=== PATIENT | female | born 1940 | race Caucasian/White ===

== ENCOUNTER → 2017-09-21 10:36 | Outpatient (POV) | payer MEDICARE, SELFPAY | PROVIDERS: Visit Provider Internal Medicine | DX: Z00.00 Encounter for general adult medical examination without abnormal findings (principal) ==

== ENCOUNTER → 2018-02-09 10:59 | Outpatient (CLI) | payer MEDICARE, SELFPAY ==
[2018-02-09 12:00] VITALS: PULSE 58
[2018-02-09 12:25] VITALS: BP 125/82; BP 134/82; PULSE 108; PULSE 68; RESP 20; O2SAT 85; O2SAT 96
[2018-02-09 12:30] VITALS: O2SAT 85
== END ==
PROVIDERS: PCP Nurse Practitioner Family; Visit Provider Internal Medicine
DX: J84.112 Idiopathic pulmonary fibrosis; J96.10 Chronic respiratory failure, unspecified whether with hypoxia or hypercapnia
CPT/HCPCS: 94060; 94618; 94640; 94726; 94729

== ENCOUNTER 2018-03-23 11:42 | Observation (INO) ==
--- NOTE | 2018-03-23 11:55 | Emergency Department Note ---
ED Disposition Clinical Impression: Pneumonia Qualifiers: Pneumonia type: due to unspecified organism Laterality: left Lung location: upper lobe of lung Qualified Code(s): J18.1 - Lobar pneumonia, unspecified organism Disposition: Admitted as Observation Condition on Discharge: [facility] - Critical Care Critical Care Time: No Attestation: On , the high probability of a clinically significant, sudden or life threatening deterioration of the following system(s) required my full and direct attention, intervention and personal management. The time I documented below is in addition to time spent performing reported procedures but includes the following listed in this critical care notation. Medical Decision Making - [place] Inquiry Pt receiving controlled substance: No Vital Signs: 03/23/18 11:44 03/23/18 11:59 03/23/18 12:30 Temperature 99.4 F Temperature Source Oral Pulse Rate 111 H Pulse Rate [Apical] 102 H 99 H Respiratory Rate 24 Blood Pressure Blood Pressure [Right Arm] 119/63 120/60 Blood Pressure Mean [Right Arm] 81 80 Blood Pressure Source Blood Pressure Source [Right Arm] Automatic Cuff Automatic Cuff Blood Pressure Position Blood Pressure Position [Right Arm] Sitting Sitting 02 Sat by Pulse Oximetry 95 97 Oxygen Delivery Method Nasal Cannula Nasal Cannula Oxygen Flow Rate (LPM) 3 3 03/23/18 14:10 03/23/18 14:48 Temperature 98.0 F Temperature Source Oral Pulse Rate 92 H Pulse Rate [Apical] 94 H Respiratory Rate 20 Blood Pressure 152/101 H Blood Pressure [Right Arm] 141/77 H Blood Pressure Mean [Right Arm] 98 Blood Pressure Source Automatic Cuff Blood Pressure Source [Right Arm] Automatic Cuff Blood Pressure Position Sitting Blood Pressure Position [Right Arm] Sitting 02 Sat by Pulse Oximetry 94 L Oxygen Delivery Method Nasal Cannula Oxygen Flow Rate (LPM) 2 - Lab Data Lab Results 03/23/18 12:00: WBC 20.2 H*, RBC 4.99, Hgb 15.0, Hct 46.8, MCV 93.9, MCH 30.1, MCHC 32.1, RDW 13.1, Plt Count 166, MPV 10.8 H, Neut % (Auto) 92.7 H, Lymph % (Auto) 3.0 L, [place] % (Auto) 3.6, Eos % (Auto) 0.5, Baso % (Auto) 0.2, Neut # (Auto) 18.7 H, Lymph # (Auto) 0.6 L, [place] # (Auto) 0.7, Eos # (Auto) 0.1, Baso # (Auto) 0.0, Total Counted 100, Neutrophils % (Manual) 93 H, Lymphocytes % (Manual) 2 L, Atypical Lymphs % 1.0, Monocytes % (Manual) 4, Platelet Estimate Normal 03/23/18 12:00: Sodium 138, Potassium 3.5, Chloride 100, Carbon Dioxide 27, Anion Gap 14.5, BUN 18, Creatinine 0.79, Estimated Creat Clear 63, Estimated GFR 70, Est GFR ( Amer) 85, Glucose 118 H, Calcium 8.9, Total Bilirubin 1.2 H , AST 13 L, ALT 17, Alkaline Phosphatase 75, Total Protein 7.2, Albumin 3.3 L, Globulin 3.9 H, Albumin/Globulin Ratio 0.8 L 03/23/18 12:00: Lactate 1.9 03/23/18 12:34: Influenza Type A Ag Negative, Influenza Type B Ag Negative Result diagrams: 03/23/18 12:00 03/23/18 12:00 Orders (Tests/Meds): ED MEDICATIONS Generic Name Dose Route Start Last Admin Trade Name Freq PRN Reason Stop Dose Admin Acetaminophen 650 mg 03/23/18 15:18 Acetaminophen 325mg Tab PO 04/22/18 15:17 Q4HP PRN As Needed for Fever or Pain Albuterol/Ipratropium 3 ml 03/23/18 20:00 03/23/18 19:54 Duoneb 3ml Neb IH 04/22/18 19:59 3 ml QIDRT DANIEL Administration Aspirin 81 mg 03/24/18 09:00 Aspirin 81mg Chewable Tablet PO 04/23/18 08:59 DAILY DANIEL Hydrochlorothiazide 25 mg 03/24/18 09:00 Hctz 25mg Tablet PO 04/23/18 08:59 DAILY DANIEL Tobramycin Sulfate 320 mg/ 108 mls @ 100 mls/hr 03/25/18 15:00 Sodium Chloride IV 04/06/18 14:59 Q48H DANIEL Azithromycin 500 mg/ Sodium 250 mls @ 250 mls/hr 03/23/18 15:18 03/23/18 1 6:54 Chloride IV 04/06/18 15:17 250 mls/hr 1300 DANIEL Administration Protocol Piperacillin Sod/Tazobactam 100 mls @ 200 mls/hr 03/23/18 17:00 03/23/18 18:57 Sod 4.5 gm/ Sodium Chloride IV 04/06/18 16:59 200 mls/hr Q6 DANIEL Administration Protocol Levothyroxine Sodium 75 mcg 03/24/18 09:00 Synthroid 75mcg (0.075mg) Tablet PO 04/23/18 08:59 DAILY DANIEL Methylprednisolone Sodium Succinate 60 mg 03/23/18 15:18 03/23/18 15:44 Solu-Medrol 125mg/2ml Vial IV 04/22/18 15:17 Not Given Q8H DANIEL Discontinued Medications Generic Name Dose Route Start Last Admin Trade Name Freq PRN Reason Stop Dose Admin Albuterol/Ipratropium 3 ml 03/23/18 11:57 03/23/18 11:58 Duoneb 3ml Neb IH 03/23/18 11:58 3 ml ONCE ONE Administration Tobramycin Sulfate 320 mg/ 108 mls @ 100 mls/hr 03/23/18 15:00 03/23/18 15:44 Sodium Chloride IV 04/06/18 14:59 100 mls/hr Q48H DANIEL Administration Methylprednisolone Sodium Succinate 125 mg 03/23/18 11:57 03/23/18 11:57 Solu-Medrol 125mg/2ml Vial IV 03/23/18 11:58 125 mg ONCE ONE Administration Miscellaneous 1 each 03/23/18 15:18 03/23/18 15:44 Tobramycin Consult Request NOTAPPLIC 03/24/18 02:34 1 each CONSULT PHARMACY DANIEL Administration Protocol ORDERS Category Date Time Status Blood Culture Stat Micro 03/23/18 12:00 Received Sputum Culture & Gram Stain Stat Micro 03/23/18 12:35 Ordered - Radiology Data #1 Image(s): Chest Image Reviewed: Yes I discussed the image results w/the radiologist Infiltrate left upper lobe and possibly left base - Physician Consults Physician Consulted: Jerel Time: 13:38 Reason -: Admission Comment/Response: Agrees to admit the patient to the hospital. We discussed the patient's clinical information, including history, exam, laboratory and radiolog y results and ED course. Per hospital procedure, I will write temporary bridge inpatient orders on the patient. Specific orders requested by the admitting physician: Pneumonia with Pseudomonas, non-ICU order set, Zosyn and tobramycin. General Adult HPI - General Chief complaint: Shortness of Breath/Dyspnea Stated complaint: soa Time Seen by Provider: 03/23/18 12:05 Mode of Arrival: Wheelchair Limitations: No Limitations Description of Symptoms (Recalled from ER Triage Doc. by RN): Pt c/o SOA. Pt wears oxygen 2L per [place] as needed at home. Pt reports dry hacking cough, denies fevers. Pt reorts has been coughing all night. - History of Present Illness HPI narrative: Onset during the night of a persistent cough and increased shortness of breath. Denies fever. Coughing up some small amounts of greenish sputum in the emergency room. Denies chest pain. Has idiopathic pulmonary fibrosis. Sees Dr. Drake. Has oxygen at home to use as needed. Has been wearing it today because of increased shortness of breath. - Related Data Home Medications Medication Instructions Recorded Confirmed Albuterol Sulfate [Albuterol HFA 1 - 2 puffs IH Q4-6H PRN 03/23/18 03/23/18 Inhaler] Aspirin 81 mg PO DAILY 03/23/18 03/23/18 Famotidine [Acid Controller] 20 mg PO BID 03/23/18 03/23/18 Fluticasone/Vilanterol [Breo 1 puff INHALATION DAILY 03/23/18 03/23/18 Ellipta 200-25 Mcg INH] Levothyroxine Sodium 75 mcg PO DAILY 03/23/18 03/23/18 [Levothyroxine 75mcg (0.075mg) Tab] Naproxen Sodium [Aleve 220mg Tab] 220 mg PO DAILY 03/23/18 03/23/18 hydroCHLOROthiazide [HCTZ 25mg 25 mg PO DAILY 03/23/18 03/23/18 tab] Allergies Allergy/AdvReac Type Severity Reaction Status Date / Time levofloxacin [From [facility]] Allergy Mild Verified 03/23/18 11:53 [facility] History I have reviewed the patient's past medical history: Yes Medical History: Denies:: Diabetes Mellitus Type 1, Diabetes Mellitus Type 2 - Social History Smoking Status: Former smoker Alcohol Intake: never - Psychiatric History Expresses thoughts of harming self/others: None Suicide Plan Description: No Plan ROS Obtained: Yes All systems reviewed & no additional complaints - Constitutional Constitutional: Denies fever(s) - Cardiovascular Cardiovascular: Denies chest pain - Respiratory Respiratory: Yes cough, Yes dyspnea Physical Exam - General General appearance: alert, in no apparent distress - Head Head exam: atraumatic, normocephalic - Eye Eye exam: Present: normal appearance, PERRL, EOMI - ENT ENT exam: Present: mucous membranes moist - Neck Neck exam: Present: normal inspection, full ROM - Chest Chest inspection: Present: normal inspection, symmetric chest wall rise - Respiratory Respiratory exam: Present: other (Crackles in the bases bilaterally consistent with pulmonary fibrosis. Minimal rhonchus and wheeze) - Cardiovascular Cardiovascular exam: Present: regular rate, normal rhythm, normal heart sounds - Abdominal Exam Abdominal exam: Present: soft. Absent: distention, tenderness - Extremities Exam Extremities exam: Present: normal inspection - Neurological Exam Neurological exam: Present: alert, oriented X3 - Psychiatric Psychiatric exam: Present: normal affect, normal mood - Skin Skin exam: Present: warm, dry
[2018-03-23 12:15] LABS: Basophils % 0.2 % (0.1-2.0); Eosinophils # 0.1 K/mm3 (0.0-0.4); Eosinophils % 0.5 % (0.1-12.0); Hematocrit 46.8 % (37.0-47.0); Lymphocytes # 0.6 K/mm3 (0.7-4.5); Mean Corpuscular HGB Conc 32.1 g/dL (31.8-35.4); Mean Corpuscular Hemoglobin 30.1 pg (27.0-31.2); Mean Corpuscular Volume 93.9 fl (81-99); Mean Platelet Volume 10.8 fl (7.4-10.4); Monocytes # 0.7 K/mm3 (0.1-1.0); Monocytes % 3.6 % (1.7-9.3); Neutrophils # 18.7 K/mm3 (1.8-7.8); Neutrophils % 92.7 % (37.0-80.0); Platelet Count 166 K/mm3 (142-424); Red Blood Count 4.99 M/mm3 (4.20-5.40); Red Cell Distribution Width 13.1 % (11.5-17.5); White Blood Count 20.2 K/mm3 (4.8-10.8)
[2018-03-23 12:28] LABS: Albumin Level 3.3 gm/dL (3.4-5.0); Albumin/Globulin Ratio 0.8 (1.1-1.8); Anion Gap 14.5 mEq/L (5-15); Bilirubin,Total 1.2 mg/dL (0.2-1.0); Calcium 8.9 mg/dL (8.5-10.1); Globulin 3.9 gm/dl (1.3-3.2); Potassium 3.5 mmoL/L (3.5-5.1); Total Protein,Serum 7.2 gm/dL (6.4-8.2)
[2018-03-23 13:00] LABS: Lymphocytes % 2 % (10-50); Monocytes % 4 % (2-9); Neutrophils % 93 % (42-76); Total Cells Counted 100
[2018-03-23 14:35] LABS: Appearance,Urine CLEAR (Clear); Bilirubin,Urine Negative (Negative); Blood, Urine TRACE-I (Negative); Color,Urine YELLOW (Yellow); Glucose,Urine (UA) Negative (Negative); Ketones,Urine Negative (Negative); Leukocyte Esterase,Urine Negative (Negative); Microscopic, Urine URINE MICROSCOPIC (MICROSCOPIC); Protein,Urine Negative (Negative); Urobilinogen,Urine 0.2 EU/dl (0.2)
[2018-03-23 14:45] LABS: Bacteria,Urine Trace /lpf; Squamous Epithelial Cell,Urine Occasional #/hpf (0-5); WBC,Urine Occasional #/hpf (0-3)
--- NOTE | 2018-03-23 14:50 | Pharmacy Consult Notes ---
- Pharmacy Consult Date: 03/23/18 Time: 14:48 Referring provider: DR. ORDAZ Reason for Consult:: TOBRAMYCIN DOSING Allergies and ADEs:: Allergies Allergy/AdvReac Type Severity Reaction Status Date / Time levofloxacin [From [facility]] Allergy Mild Verified 03/23/18 11:53 Home Medications:: Home Medications Medication Instructions Recorded Confirmed Type Albuterol Sulfate [Albuterol HFA 1 - 2 puffs IH Q4-6H PRN 03/23/18 03/23/18 History Inhaler] Aspirin 81 mg PO DAILY 03/23/18 03/23/18 History Famotidine [Acid Controller] 20 mg PO BID 03/23/18 03/23/18 History Fluticasone/Vilanterol [Breo 1 puff INHALATION DAILY 03/23/18 03/23/18 History Ellipta 200-25 Mcg INH] Levothyroxine Sodium 75 mcg PO DAILY 03/23/18 03/23/18 History [Levothyroxine 75mcg (0.075mg) Tab] Naproxen Sodium [Aleve 220mg Tab] 220 mg PO DAILY 03/23/18 03/23/18 History hydroCHLOROthiazide [HCTZ 25mg 25 mg PO DAILY 03/23/18 03/23/18 History tab] Height: 1.57 m Weight: 86.183 kg Laboratory Results:: Laboratory Results - last 24 hr 03/23/18 12:00: WBC 20.2 H*, RBC 4.99, Hgb 15.0, Hct 46.8, MCV 93.9, MCH 30.1, MCHC 32.1, RDW 13.1, Plt Count 166, MPV 10.8 H, Neut % (Auto) 92.7 H, Lymph % (Auto) 3.0 L, [place] % (Auto) 3.6, Eos % (Auto) 0.5, Baso % (Auto) 0.2, Neut # (Auto) 18.7 H, Lymph # (Auto) 0.6 L, [place] # (Auto) 0.7, Eos # (Auto) 0.1, Baso # (Auto) 0.0, Total Counted 100, Neutrophils % (Manual) 93 H, Lymphocytes % (Manual) 2 L, Atypical Lymphs % 1.0, Monocytes % (Manual) 4, Platelet Estimate Normal 03/23/18 12:00: Sodium 138, Potassium 3.5, Chloride 100, Carbon Dioxide 27, Anion Gap 14.5, BUN 18, Creatinine 0.79, Estimated Creat Clear 63, Estimated GFR 70, Est GFR ( Amer) 85, Glucose 118 H, Calcium 8.9, Total Bilirubin 1.2 H , AST 13 L, ALT 17, Alkaline Phosphatase 75, Total Protein 7.2, Albumin 3.3 L, Globulin 3.9 H, Albumin/Globulin Ratio 0.8 L 03/23/18 12:00: Lactate 1.9 03/23/18 12:34: Influenza Type A Ag Negative, Influenza Type B Ag Negative 03/23/18 14:30: Urine Color Yellow, Urine Appearance Clear, Urine pH 8.0, Ur Specific [place] 1.010, Urine Protein Negative, Urine Glucose (UA) Negative, Urine Ketones Negative, Urine Blood Trace-i, Urine Nitrate Negative, Urine Bilirubin Negative, Urine Urobilinogen 0.2, Ur Leukocyte Esterase Negative, Urine RBC 3-5, Urine WBC Occasional, Ur Squamous Epith Cells Occasional, Urine Bacteria Trace Medical History: Denies:: Diabetes Mellitus Type 1, Diabetes Mellitus Type 2 Assessment and Plan - Assessment and plan all Dx Assessment and Plan for all problems:: BASED ON PATIENT'S FACTORS, RECOMMEND STARTING WITH TOBRAMYCIN 320 MG Q48H AT THIS TIME. PHARMACY WILL FOLLOW DAILY AND ADJUST APPROPRIATE. SAHIL RAI, PHARMD
--- NOTE | 2018-03-23 16:05 | History & Physical Report ---
*Admission Date: 03/23/18 *Chief complaint: cough/shortness of breath *History of present illness: 77-year-old white female with history of idiopathic pulmonary fibrosis and some frequent exacerbations who over the past couple of years has enjoyed fairly good pulmonary status. She does require home oxygen therapy. She follows with Dr. Drake in the pulmonary clinic here at [facility]. She was feeling well yesterday and did some shopping, but yesterday evening began to have coughing, sputum production and a low-grade temperature. This morning she became very dyspneic, increasing oxygen requirements, and came to the emergency department where she was noted to be tachycardic, tachypneic, and have infiltrates on chest x-ray that are new since prior chest x-rays. She was admitted to hospital for exacerbation of pulmonary fibrosis and community-acquired pneumonia in the setting of chronic lung disease. [facility] History I have reviewed the patient's past medical history: Yes Medical History: Reports:: Chronic Obstructive Pulmonary Disease (COPD) (With pulmonary fibrosis/bronchiectasis), Lung Disease Denies:: Cancer, Diabetes Mellitus Type 1, Diabetes Mellitus Type 2, MRSA Other Medical History: Reports: Arthritis, Hypothyroidism Laterality Cases: Bilateral: Tonsillectomy Other Surgeries: Yes: Hysterectomy-Total (Perhaps with appendectomy?) Amputation: No Fractures: No - *Social History Educational Level: Completed High School Smoking Status: Former smoker Alcohol Intake: never Occupational Status: retired Housing: house Household Members: none - Psychiatric History Expresses thoughts of harming self/others: None Suicide Plan Description: No Plan *Family Hx:: Cancer, Stroke Review of Systems - Review of Systems Review of systems:: pertinent systems reviewed and negative unless documented below - Constitutional Reports lack of energy, Denies anorexia, Denies body ache(s), Denies chills - Eyes Denies blurry vision, Denies change in vision, Denies bulging eyes - ENT Denies abnormal hearing, Denies bleeding gums, Denies change in voice, Denies difficulty swallowing - *Cardiovascular Reports shortness of breath, Reports shortness of breath with activity, Reports leg swelling (Over the past 4-5 months.), Denies chest pain, Denies excessive sweating, Denies irregular heart rhythm - *Respiratory Reports change in phlegm color, Reports chest congestion, Reports cough, Reports shortness of breath, Reports excessive phlegm production, Denies coughing up blood - *Gastrointestinal Denies abdominal pain, Denies belching, Denies bloating, Denies constipation, Denies cramping - *Musculoskeletal Denies abnormal walking, Denies joint swelling, Denies limited joint movement - Integumentary/Breasts Denies acne, Denies hair loss - *Neurologic Denies abnormal walking, Denies abnormal hearing, Denies abnormal speech - Hematologic/Lymphatic Denies easy bleeding - Allergic/Immunologic Denies itchy eyes, Denies lip swelling Meds Home Medications Medication Instructions Recorded Confirmed Type Albuterol Sulfate [Albuterol HFA 1 - 2 puffs IH Q4-6H PRN 03/23/18 03/23/18 History Inhaler] Aspirin 81 mg PO DAILY 03/23/18 03/23/18 History Famotidine [Acid Controller] 20 mg PO BID 03/23/18 03/23/18 History Fluticasone/Vilanterol [Breo 1 puff INHALATION DAILY 03/23/18 03/23/18 History Ellipta 200-25 Mcg INH] Levothyroxine Sodium 75 mcg PO DAILY 03/23/18 03/23/18 History [Levothyroxine 75mcg (0.075mg) Tab] Naproxen Sodium [Aleve 220mg Tab] 220 mg PO DAILY 03/23/18 03/23/18 History hydroCHLOROthiazide [HCTZ 25mg 25 mg PO DAILY 03/23/18 03/23/18 History tab] Allergies Allergy/AdvReac Type Severity Reaction Status Date / Time levofloxacin [From [facility]] Allergy Mild Verified 03/23/18 11:53 Exam Vital signs and Labs for Last 24 Hours: Temp Pulse Resp BP Pulse Ox 98.4 F 103 H 21 139/67 95 03/23/18 15:00 03/23/18 15:00 03/23/18 15:00 03/23/18 15:00 03/23/18 15:00 Laboratory Results - last 24 hr 03/23/18 12:00: WBC 20.2 H*, RBC 4.99, Hgb 15.0, Hct 46.8, MCV 93.9, MCH 30.1, MCHC 32.1, RDW 13.1, Plt Count 166, MPV 10.8 H, Neut % (Auto) 92.7 H, Lymph % (Auto) 3.0 L, [place] % (Auto) 3.6, Eos % (Auto) 0.5, Baso % (Auto) 0.2, Neut # (Auto) 18.7 H, Lymph # (Auto) 0.6 L, [place] # (Auto) 0.7, Eos # (Auto) 0.1, Baso # (Auto) 0.0, Total Counted 100, Neutrophils % (Manual) 93 H, Lymphocytes % (Manual) 2 L, Atypical Lymphs % 1.0, Monocytes % (Manual) 4, Platelet Estimate Normal 03/23/18 12:00: Sodium 138, Potassium 3.5, Chloride 100, Carbon Dioxide 27, Anion Gap 14.5, BUN 18, Creatinine 0.79, Estimated Creat Clear 63, Estimated GFR 70, Est GFR ( Amer) 85, Glucose 118 H, Calcium 8.9, Total Bilirubin 1.2 H , AST 13 L, ALT 17, Alkaline Phosphatase 75, Total Protein 7.2, Albumin 3.3 L, Globulin 3.9 H, Albumin/Globulin Ratio 0.8 L 03/23/18 12:00: Lactate 1.9 03/23/18 12:34: Influenza Type A Ag Negative, Influenza Type B Ag Negative 03/23/18 14:30: Urine Color Yellow, Urine Appearance Clear, Urine pH 8.0, Ur Specific [place] 1.010, Urine Protein Negative, Urine Glucose (UA) Negative, Urine Ketones Negative, Urine Blood Trace-i, Urine Nitrate Negative, Urine Bilirubin Negative, Urine Urobilinogen 0.2, Ur Leukocyte Esterase Negative, Urine RBC 3-5, Urine WBC Occasional, Ur Squamous Epith Cells Occasional, Urine Bacteria Trace I & O for Last 24 hours: Intake & Output 03/21/18 03/22/18 03/23/18 03/24/18 11:59 11:59 11:59 11:59 Weight 190 lb 193 lb 1 oz Microbiology Reports for the Last 24 Hours: Microbiology 03/23/18 12:35 Sputum - Expectorated Sputum Gram Stain - Final Narrative: Patient is pleasant, oriented x3. Talkative, very knowledgeable about her medical conditions. Patient has BMI of 35, obesity limits her exam accuracy and complicates all aspects of her care. Lungs have rhonchi and crackles in both lower lung peoples, worse on the right. No wheezing. Fairly symmetric air entry. Trachea is midline. Heart rate regular without murmurs. Abdomen soft, obesity noted. Hepatospleno megaly. Patient has swelling in the anterior left parham which apparently is old, no calf swelling, no cord formation. Right side without swelling. She is able to move extremities well. Cranial nerves tach. Assessment and Plan (1) Pulmonary fibrosis Current visit: Yes Status: Acute Category: Medical Code(s): J84.10 - Pulmonary fibrosis, unspecified Continue current oxygen therapy and supportive care. (2) Bronchiectasis Current visit: Yes Status: Acute Category: Medical Code(s): J47.9 - Bronchiectasis, uncomplicated See notes below Re: Pneumonia (3) Pneumonia Current visit: Yes Status: Acute Category: Medical Code(s): J18.9 - Pneumonia, unspecified organism Agree with admission. Given history of bronchiectasis will cover for Pseudomonas. Await culture results. Leukocytosis noted. Repeat this tomorrow.
[2018-03-24 06:59] LABS: Lymphocytes # 0.5 K/mm3 (0.7-4.5); Lymphocytes % 2.5 % (10-50); Mean Corpuscular HGB Conc 31.9 g/dL (31.8-35.4); Mean Corpuscular Volume 94.3 fl (81-99); Mean Platelet Volume 9.5 fl (7.4-10.4); Monocytes # 0.3 K/mm3 (0.1-1.0); Monocytes % 1.7 % (1.7-9.3); Neutrophils # 18.9 K/mm3 (1.8-7.8); Neutrophils % 95.8 % (37.0-80.0); Platelet Count 142 K/mm3 (142-424); Red Blood Count 4.16 M/mm3 (4.20-5.40); White Blood Count 19.7 K/mm3 (4.8-10.8)
--- NOTE | 2018-03-24 07:23 | Pharmacy Consult Notes ---
[facility] Pharmacy VTE Monitoring - Patient Demographics Admission date: 03/23/18 Report Date: 03/24/18 Time: 07:23 Allergies/Adverse Reactions: Patient Allergies levofloxacin [From [facility]] Allergy (Mild, Verified 03/23/18 11:53) Height: 1.57 m Weight: 87.572 kg Patient Problems: Current Active Problems Pneumonia (Acute) Pulmonary fibrosis (Acute) Bronchiectasis (Acute) - VTE Risk Labs: VTE Related Lab Results Hgb 15.0 g/dL (12.2-16.2) 03/23/18 12:00 Hct 46.8 % (37.0-47.0) 03/23/18 12:00 Plt Count 166 K/mm3 (142-424) 03/23/18 12:00 BUN 18 mg/dL (7-18) 03/23/18 12:00 Creatinine 0.79 mg/dL (0.55-1.02) 03/23/18 12:00 Estimated Creat Clear 63 mL/min (50-200) 03/23/18 12:00 VTE Score: 4 VTE Risk Level: Low Risk - Prophylaxis VTE Prophylaxis Ordered?: Yes Types of VTE Prophylaxis: TEDS Knee High Location of Applied Device: Bilateral Lower Extremeties - VTE Diagnosis Confirmed Treatment or plan recommended: Continue Current Treatment
--- NOTE | 2018-03-24 07:24 | Progress Note ---
Internal Medicine - PN: Subj *Date: 03/24/18 *Time: 07:22 Interval history: Patient feels much better than she did yesterday. Feels much less short of breath. Much less sputum production. No chest pain. Is eating well. Exam Vital signs and Labs for Last 24 Hours: Temp Pulse Resp BP Pulse Ox 98.1 F 73 15 120/61 95 03/24/18 04:00 03/24/18 07:20 03/24/18 04:00 03/24/18 04:00 03/24/18 07:20 Laboratory Results - last 24 hr 03/23/18 12:00: WBC 20.2 H*, RBC 4.99, Hgb 15.0, Hct 46.8, MCV 93.9, MCH 30.1, MCHC 32.1, RDW 13.1, Plt Count 166, MPV 10.8 H, Neut % (Auto) 92.7 H, Lymph % (Auto) 3.0 L, [place] % (Auto) 3.6, Eos % (Auto) 0.5, Baso % (Auto) 0.2, Neut # (Auto) 18.7 H, Lymph # (Auto) 0.6 L, [place] # (Auto) 0.7, Eos # (Auto) 0.1, Baso # (Auto) 0.0, Total Counted 100, Neutrophils % (Manual) 93 H, Lymphocytes % (Manual) 2 L, Atypical Lymphs % 1.0, Monocytes % (Manual) 4, Platelet Estimate Normal 03/23/18 12:00: Sodium 138, Potassium 3.5, Chloride 100, Carbon Dioxide 27, Anion Gap 14.5, BUN 18, Creatinine 0.79, Estimated Creat Clear 63, Estimated GFR 70, Est GFR ( Amer) 85, Glucose 118 H, Calcium 8.9, Total Bilirubin 1.2 H , AST 13 L, ALT 17, Alkaline Phosphatase 75, Total Protein 7.2, Albumin 3.3 L, Globulin 3.9 H, Albumin/Globulin Ratio 0.8 L 03/23/18 12:00: Lactate 1.9 03/23/18 12:34: Influenza Type A Ag Negative, Influenza Type B Ag Negative 03/23/18 14:30: Urine Color Yellow, Urine Appearance Clear, Urine pH 8.0, Ur Specific [place] 1.010, Urine Protein Negative, Urine Glucose (UA) Negative, Urine Ketones Negative, Urine Blood Trace-i, Urine Nitrate Negative, Urine Bilirubin Negative, Urine Urobilinogen 0.2, Ur Leukocyte Esterase Negative, Urine RBC 3-5, Urine WBC Occasional, Ur Squamous Epith Cells Occasional, Urine Bacteria Trace 03/23/18 21:10: Random Tobramycin 3.8 I & O for Last 24 hours: Intake & Output 03/21/18 03/22/18 03/23/18 03/24/18 11:59 11:59 11:59 11:59 Intake Total 240 / 240 Output Total 300 / 300 Balance -60 / -60 Weight 190 lb 193 lb 1 oz Microbiology Reports for the Last 24 Hours: Microbiology 03/23/18 12:35 Sputum - Expectorated Sputum Gram Stain - Final Narrative: Patient is pleasant, talkative, alert, oriented x3. Lungs have fibrous crackles in both bases, especially the right middle lung field but air movement is better and she does not cough when she takes a deep breath. Heart rate regular. No pedal edema or pulse deficits in her feet. Neurologic exam unremarkable. No JVD, oropharynx clear. Assessment and Plan (1) Pulmonary fibrosis Current visit: Yes Status: Acute Category: Medical Code(s): J84.10 - Pulmonary fibrosis, unspecified (2) Bronchiectasis Current visit: Yes Status: Acute Category: Medical Code(s): J47.9 - Bronchiectasis, uncomplicated (3) Pneumonia Current visit: Yes Status: Acute Qualifiers: Pneumonia type: due to unspecified organism Laterality: left Lung location: upper lobe of lung Qualified Code(s): J18.1 - Lobar pneumonia, unspecified organism Category: Medical Code(s): J18.9 - Pneumonia, unspecified organism - Assessment and plan all Dx Assessment and Plan for all problems:: Continue broad-spectrum IV antibiotics given her risk for gram- negative/anaerobes/Pseudomonas issues. Fortunately her Gram stain looks promising that this is not the case. Await 1 more day of antibiotics to assess blood cultures and sputum cultures. Possibly home tomorrow on oral therapy and steroid taper.
[2018-03-24 07:35] LABS: Anion Gap 15.4 mEq/L (5-15); Calcium 8.2 mg/dL (8.5-10.1); Potassium 3.4 mmoL/L (3.5-5.1)
[2018-03-24 07:36] LABS: Hematocrit 39.4 % (37.0-47.0); Hemoglobin 12.5 g/dL (12.2-16.2)
[2018-03-24 08:57] LABS: Lymphocytes % 3 % (10-50); Monocytes % 1 % (2-9); Neutrophils % 95 % (42-76); Total Cells Counted 100
[2018-03-24 08:59] LABS: RBC Morphology Normal
--- NOTE | 2018-03-24 11:34 | Pharmacy Consult Notes ---
- Pharmacy Consult Date: 03/24/18 Time: 11:26 Referring provider: DR. ORDAZ Reason for Consult:: TOBRAMYCIN LEVELS AND DOSE CHANGE Allergies and ADEs:: Allergies Allergy/AdvReac Type Severity Reaction Status Date / Time levofloxacin [From LEVAQUIN] Allergy Mild Verified 03/23/18 11:53 Home Medications:: Home Medications Medication Instructions Recorded Confirmed Type Albuterol Sulfate [Albuterol HFA 1 - 2 puffs IH Q4-6H PRN 03/23/18 03/23/18 History Inhaler] Aspirin 81 mg PO DAILY 03/23/18 03/23/18 History Famotidine [Acid Controller] 20 mg PO BID 03/23/18 03/23/18 History Fluticasone/Vilanterol [Breo 1 puff INHALATION DAILY 03/23/18 03/23/18 History Ellipta 200-25 Mcg INH] Levothyroxine Sodium 75 mcg PO DAILY 03/23/18 03/23/18 History [Levothyroxine 75mcg (0.075mg) Tab] Naproxen Sodium [Aleve 220mg Tab] 220 mg PO DAILY 03/23/18 03/23/18 History hydroCHLOROthiazide [HCTZ 25mg 25 mg PO DAILY 03/23/18 03/23/18 History tab] Height: 1.57 m Weight: 87.572 kg Laboratory Results:: Laboratory Results - last 24 hr 03/23/18 12:00: WBC 20.2 H*, RBC 4.99, Hgb 15.0, Hct 46.8, MCV 93.9, MCH 30.1, MCHC 32.1, RDW 13.1, Plt Count 166, MPV 10.8 H, Neut % (Auto) 92.7 H, Lymph % (Auto) 3.0 L, [place] % (Auto) 3.6, Eos % (Auto) 0.5, Baso % (Auto) 0.2, Neut # (Auto) 18.7 H, Lymph # (Auto) 0.6 L, [place] # (Auto) 0.7, Eos # (Auto) 0.1, Baso # (Auto) 0.0, Total Counted 100, Neutrophils % (Manual) 93 H, Lymphocytes % (Manual) 2 L, Atypical Lymphs % 1.0, Monocytes % (Manual) 4, Platelet Estimate Normal 03/23/18 12:00: Sodium 138, Potassium 3.5, Chloride 100, Carbon Dioxide 27, Anion Gap 14.5, BUN 18, Creatinine 0.79, Estimated Creat Clear 63, Estimated GFR 70, Est GFR ( Amer) 85, Glucose 118 H, Calcium 8.9, Total Bilirubin 1.2 H , AST 13 L, ALT 17, Alkaline Phosphatase 75, Total Protein 7.2, Albumin 3.3 L, Globulin 3.9 H, Albumin/Globulin Ratio 0.8 L 03/23/18 12:00: Lactate 1.9 03/23/18 12:34: Influenza Type A Ag Negative, Influenza Type B Ag Negative 03/23/18 14:30: Urine Color Yellow, Urine Appearance Clear, Urine pH 8.0, Ur Specific [place] 1.010, Urine Protein Negative, Urine Glucose (UA) Negative, Urine Ketones Negative, Urine Blood Trace-i, Urine Nitrate Negative, Urine Bilirubin Negative, Urine Urobilinogen 0.2, Ur Leukocyte Esterase Negative, Urine RBC 3-5, Urine WBC Occasional, Ur Squamous Epith Cells Occasional, Urine Bacteria Trace 03/23/18 21:10: Random Tobramycin 3.8 03/24/18 06:40: Random Tobramycin 0.7 03/24/18 06:40: WBC 19.7 H, RBC 4.16 L, Hgb 12.5 D, Hct 39.4, MCV 94.3, MCH 30.0, MCHC 31.9, RDW 13.0, Plt Count 142, MPV 9.5, Neut % (Auto) 95.8 H, Lymph % (Auto) 2.5 L, [place] % (Auto) 1.7, Eos % (Auto) 0.0 L, Baso % (Auto) 0.0 L, Neut # (Auto) 18.9 H, Lymph # (Auto) 0.5 L, [place] # (Auto) 0.3, Eos # (Auto) 0.0, Baso # (Auto) 0.0, Total Counted 100, Neutrophils % (Manual) 95 H, Band Neutrophils % 1.0, Lymphocytes % (Manual) 3 L, Monocytes % (Manual) 1 L, Platelet Estimate Normal, RBC Morphology Normal 03/24/18 06:40: Sodium 143, Potassium 3.4 L, Chloride 106, Carbon Dioxide 25, Anion Gap 15.4 H, BUN 18, Creatinine 0.81, Estimated Creat Clear 64, Estimated GFR 68, Est GFR ( Amer) 83, Glucose 140 H, Calcium 8.2 L Medical History: Reports:: Chronic Obstructive Pulmonary Disease (COPD) (With pulmonary fibrosis/bronchiectasis), Lung Disease Denies:: Cancer, Diabetes Mellitus Type 1, Diabetes Mellitus Type 2, MRSA Assessment and Plan (1) Pulmonary fibrosis Current visit: Yes Status: Acute Category: Medical Code(s): J84.10 - Pulmonary fibrosis, unspecified (2) Bronchiectasis Current visit: Yes Status: Acute Category: Medical Code(s): J47.9 - Bronchiectasis, uncomplicated (3) Pneumonia Current visit: Yes Status: Acute Qualifiers: Pneumonia type: due to unspecified organism Laterality: left Lung location: upper lobe of lung Qualified Code(s): J18.1 - Lobar pneumonia, unspecified organism Category: Medical Code(s): J18.9 - Pneumonia, unspecified organism - Assessment and plan all Dx Assessment and Plan for all problems:: BASED ON PATIENT'S CALCULATED PEAK AND TROUGH OF 6,68 MCG/ML AND 0.09 MCG/ML RESPECTIVELY. RECOMMEND INCREASING DOSE OF TOBRAMYCIN TO 460 MG Q24H AT THIS TIME. WILL OBTAIN LEVEL OVERNIGHT TO DETERMINE CLEARANCE. PHARMACY WILL FOLLOW DAILY AND ADJUST APPROPRIATE. SAHIL RAI, PHARMD
--- NOTE | 2018-03-25 09:02 | Discharge Summary ---
General - General Admission date:: 03/23/18 Discharge date: 03/25/18 HPI HPI: 77-year-old white female with history of idiopathic pulmonary fibrosis and some frequent exacerbations who over the past couple of years has enjoyed fairly good pulmonary status. She does require home oxygen therapy. She follows with Dr. Drake in the pulmonary clinic here at [facility]. She was feeling well yesterday and did some shopping, but yesterday evening began to have coughing, sputum production and a low-grade temperature. This morning she became very dyspneic, increasing oxygen requirements, and came to the emergency department where she was noted to be tachycardic, tachypneic, and have infiltrates on chest x-ray that are new since prior chest x-rays. She was admitted to hospital for exacerbation of pulmonary fibrosis and community-acquired pneumonia in the setting of chronic lung disease. Hospital Course Hospital Course: Patient was admitted to hospital. Because of her significant pulmonary fibrosis burden and high risk of Pseudomonas she was placed on Pseudomonas coverage and did well with this. She improved very nicely vis--vis shortness of air and sputum production. Culture of sputum was nondiagnostic with normal respiratory ivet and fortunately blood cultures were negative. This morning she feels great, feels almost back to her baseline and is taking her p.o. medications well. She will be discharged home with Augmentin twice daily for anaerobic and Gram positive and decent gram-negative coverage. Steroids for a burst dose and close follow-up in my office. Objective Vital signs: Temp Pulse Resp BP Pulse Ox 97.6 F 96 H 20 157/63 H 99 03/25/18 08:00 03/25/18 08:00 03/25/18 08:00 03/25/18 08:00 03/25/18 08:00 Narrative: Patient is pleasant, alert, oriented x3. Oropharynx clear, comfortable on 2 L nasal cannula which is her baseline. Minimal crackles at baseline but good air movement, no expiratory rhonchi or wheezing. Heart rate regular without murmurs. Abdomen soft and nontender. Results Labs on day of discharge: Labs from last 24 hours 03/25/18 03/24/18 02:15 06:40 Total Counted 100 Neutrophils % (Manual) 95 H Band Neutrophils % 1.0 Lymphocytes % (Manual) 3 L Monocytes % (Manual) 1 L Platelet Estimate Normal RBC Morphology Normal Random Tobramycin 1.5 Preliminary micro results at discharge 03/23/18 12:35 Sputum Culture - Preliminary Sputum - Expectorated Sputum DS: Diagnosis - Discharge Diagnosis (1) Pulmonary fibrosis Status: Chronic (2) Bronchiectasis Status: Chronic (3) Pneumonia Status: Acute Discharge Plan - Patient Discharge Instructions ACTIVITY: Continue current activity DIET: continue same diet - Follow up Plan Follow up with: Rick Beltrán MD [Staff Physician] - 03/29/18 Disposition: Home, Self-Correction Medications: Home Medications Medication Instructions Recorded Confirmed Type Albuterol Sulfate [Albuterol HFA 1 - 2 puffs IH Q4-6H PRN 03/23/18 03/23/18 History Inhaler] Aspirin 81 mg PO DAILY 03/23/18 03/23/18 History Famotidine [Acid Controller] 20 mg PO BID 03/23/18 03/23/18 History Fluticasone/Vilanterol [Breo 1 puff INHALATION DAILY 03/23/18 03/23/18 History Ellipta 200-25 Mcg INH] Levothyroxine Sodium 75 mcg PO DAILY 03/23/18 03/23/18 History [Levothyroxine 75mcg (0.075mg) Tab] Naproxen Sodium [Aleve 220mg Tab] 220 mg PO DAILY 03/23/18 03/23/18 History hydroCHLOROthiazide [HCTZ 25mg 25 mg PO DAILY 03/23/18 03/23/18 History tab] Prescriptions/Medication Reconciliation: New Amoxicillin/Potassium Clav [Augmentin 875-125 Tablet] 1 tab PO Q12H 7 Days #14 tab predniSONE [Deltasone 20mg tablet] 20 mg PO BID 7 Days #14 tab Continue Albuterol Sulfate [Albuterol HFA Inhaler] 1 - 2 puffs IH Q4-6H PRN PRN Reason: Shortness Of Breath Or Wheezing hydroCHLOROthiazide [HCTZ 25mg tab] 25 mg PO DAILY Fluticasone/Vilanterol [Breo Ellipta 200-25 Mcg INH] 1 puff INHALATION DAILY Famotidine [Acid Controller] 20 mg PO BID Aspirin 81 mg PO DAILY Levothyroxine Sodium [Levothyroxine 75mcg (0.075mg) Tab] 75 mcg PO DAILY Naproxen Sodium [Aleve 220mg Tab] 220 mg PO DAILY
== END 2018-03-25 13:08 | disposition home or self-care (01) ==
LOC: ER 11:42 → 2ND 14:06 → INTOOBSV 14:06 → 2ND 14:50
PROVIDERS: ADMIT Internal Medicine Adolescent Medicine; ATTEND Internal Medicine Adolescent Medicine
CPT/HCPCS: 36415; 71010; 71045; 80048; 80053; 80200; 81001; 83605; 85007; 85025; 87040; 87070; 87077; 87184; 87205; 87275; 87276; 94640; 94761; 96374; 99285; G0378; J0456; J2543

== ENCOUNTER → 2018-04-06 13:11 | Outpatient (CLI) | payer MEDICARE, SELFPAY ==
--- NOTE | 2018-04-06 13:21 | CT_ITS ---
CT chest wo con HISTORY: Idiopathic pulmonary fibrosis ITS.REASON: PULMONARY FIBROSIS ORDERING PHYSICIAN: Manny Drake MD PATIENT AGE: 77 years COMPARISON: 03/04/2017 Technique: Axial images obtained with sagittal and coronal reformats. All CT scans at the facility use one or more dose reduction, viz: automated exposure control, ma/kV adjustment per patient size (including targeted exams where dose is matched to indication, i.e. head), or iterative reconstruction technique. FINDINGS: Scattered small nodes are present in the mediastinum. The largest node is along the left aspect of the main pulmonary artery measuring 2 x 1 cm and appears slightly more bulky than when compared to the previous exam. No aortic aneurysm evident. There is diffuse pulmonary fibrotic change once again noted with centrilobular emphysema. The pulmonary fibrotic changes appear slightly worse with slight worsening of the peripheral honeycombing in the lung bases. No central obstructing lesions. No suspicious pulmonary nodules infiltrates or effusions. Mild bronchiectasis in the lung bases unchanged. Upper abdominal images show cholelithiasis. There are degenerative changes in thoracic spine. IMPRESSION: 1. Diffuse pulmonary fibrosis which appears slightly worse. Mild bronchiectasis in the lung bases unchanged 2. Mild mediastinal adenopathy with a few nodes slightly more bulky 3. Cholelithiasis
== END ==
PROVIDERS: PCP Internal Medicine Adolescent Medicine; Visit Provider Internal Medicine
DX: J84.112 Idiopathic pulmonary fibrosis (principal)
CPT/HCPCS: 71250

== ENCOUNTER → 2018-04-22 10:46 | Outpatient (POV) | payer MEDICARE, SELFPAY | PROVIDERS: Visit Provider Internal Medicine | DX: Z00.00 Encounter for general adult medical examination without abnormal findings (principal) ==

== ENCOUNTER 2018-05-11 14:30 | Outpatient (RCR) | payer MEDICARE, SELFPAY ==
--- NOTE | 2018-04-27 16:41 | HMH.PTOPEV ---
PT Outpatient Evaluation Rehab PT Outpatient Evaluation Start: 04/27/18 15:09 Freq: Status: Active Protocol: Document 04/27/18 15:09 JASPER (Rec: 04/27/18 16:40 [email or web address] [id number]) Electronically Signed By Ugo Chung, PT 04/27/18 15:09 Outpatient Therapy Subjective History Subjective History Pt. is a 77 year old female who presents to outpatient PT with acute R traumatic knee pain, R>L. Pt. reports standing up from her recliner last Wednesday(04/20/18 ), turning to the right and feeling a painful twist in her R knee. Pt. reported going to Urgent Treatment the next day(04/21/18), then referred to her MD, which then referred her for PT and to see an Orthopedic surgeon on (05/13/18 ). Her MD prescribed a brace for home/community and WBAT, but wants pt. to wean from brace @ home per pt. tolerance . Pt. reports having 2 injections in her R knee last year(2017) that provided symptom relief. 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 report. PMH includes hospital stay 2 weeks ago for IPF and a L ft. bunionectomy. Current medications include medicine for her thyroid and Naproxen. Chief Complaint Pain Swelling Symptom Type Ache Other Symptoms Relieved By Rest/Positioning Brace/Support Prescription Meds Symptoms Aggravated By Standing Physical Activity Twisting Walking Prior Functional Limitations None Current Functional Limitations Housework Driving Standing Squatting Recreation Activity Walking Stairs Symptom Description
== END 2018-05-16 14:22 | disposition home or self-care (01) ==
LOC: PT.CARL 14:30
PROVIDERS: Visit Provider Nurse Practitioner Family
DX: M17.11 Unilateral primary osteoarthritis, right knee (principal); M25.461 Effusion, right knee
CPT/HCPCS: 97014; 97033; 97110; 97116; 97163; G0283

== ENCOUNTER → 2018-05-13 10:02 | Outpatient (CLI) | payer MEDICARE, SELFPAY ==
--- NOTE | 2018-05-13 10:05 | XR_ITS ---
XR knee RT 4V HISTORY: Right knee pain, twisting injury with pain ITS.REASON: Rt knee pain ORDERING PHYSICIAN: Paula Ching MD PATIENT AGE: 77 years COMPARISON: 04/22/2018 FINDINGS: Weightbearing views are performed. Moderate osteoarthritic changes are once again noted involving the lateral compartment and patellofemoral joint not significant change. Slight increased density noted in the suprapatellar region consistent with small knee joint effusion which appears less prominent. No acute fracture or dislocation. IMPRESSION: Moderate osteoarthritis of the lateral compartment and patellofemoral joint with knee joint effusion which appears slightly smaller
== END ==
PROVIDERS: PCP Internal Medicine Adolescent Medicine; Visit Provider Orthopaedic Surgery
DX: M25.561 Pain in right knee (principal)
CPT/HCPCS: 73564

== ENCOUNTER → 2018-06-29 09:07 | Outpatient (CLI) | payer MEDICARE, SELFPAY ==
[2018-06-29 14:26] LABS: Alanine Aminotransferase 14 U/L (12-78); Albumin Level 2.8 gm/dL (3.4-5.0); Albumin/Globulin Ratio 0.8 (1.1-1.8); Alkaline Phosphatase 93 U/L (46-116); Aspartate Amino Transferase 15 U/L (15-37); Bilirubin,Total 0.7 mg/dL (0.2-1.0); Blood Urea Nitrogen 19 mg/dL (7-18); Calcium 8.9 mg/dL (8.5-10.1); Carbon Dioxide 28 mmol/L (21.0-32.0); Chloride 104 mmol/L (98-107); Chol/HDL Ratio 3.2 (1-3.5); Cholesterol 214 mg/dL (140-200); Creatinine,Serum 0.68 mg/dL (0.55-1.02); Estimated Glomerular Filt Rate 84 ml/min (>60); GFR (African American) 101 ML/MIN (>60); Globulin 3.7 gm/dl (1.3-3.2); Glucose 93 mg/dL (74-106); HDL Cholesterol 66 mg/dL (29-89); LDL Cholesterol 129 mg/dL (0-130); Sodium 143 mmol/L (136-145); Total Protein,Serum 6.5 gm/dL (6.4-8.2); Triglycerides 95 mg/dL (30-200); VLDL Cholesterol 19 mg/dL (0-40)
== END ==
PROVIDERS: PCP Internal Medicine Adolescent Medicine; Visit Provider Internal Medicine Adolescent Medicine
DX: E03.9 Hypothyroidism, unspecified (principal)
CPT/HCPCS: 36415; 80053; 80061

== ENCOUNTER → 2018-08-18 13:06 | Outpatient (CLI) | payer MEDICARE, SELFPAY ==
--- NOTE | 2018-08-18 13:09 | XR_ITS ---
XR DEXA axial skeleton HISTORY: ITS.REASON: POST MENOPAUSAL SCREENING ORDERING PHYSICIAN: Rick Beltrán MD PATIENT AGE: 78 years COMPARISON: None FINDINGS: The BMD measured at the Right femoral neck is 0.836 g/cm squared with a T score of -1.5. This is considered Osteopenic according to the World Health Organization criteria. Fracture risk is Moderate. Treatment is advised. The L1 L4 density T score of 1.9. IMPRESSION: Osteopenia with moderate fracture risk. Treatment is advised. Suggest follow-up exam August 2020
== END ==
PROVIDERS: PCP Internal Medicine Adolescent Medicine; Visit Provider Internal Medicine Adolescent Medicine
DX: Z13.820 Encounter for screening for osteoporosis (principal); Z78.0 Asymptomatic menopausal state
CPT/HCPCS: 77080

== ENCOUNTER → 2018-08-24 09:51 | Outpatient (CLI) | payer MEDICARE, SELFPAY ==
[2018-08-24 14:21] LABS: Anion Gap 11.3 mEq/L (5-15); Blood Urea Nitrogen 17 mg/dL (7-18); Calcium 8.8 mg/dL (8.5-10.1); Carbon Dioxide 30 mmol/L (21.0-32.0); Chloride 104 mmol/L (98-107); Creatinine,Serum 0.71 mg/dL (0.55-1.02); Estimated Glomerular Filt Rate 79 ml/min (>60); GFR (African American) 96 ML/MIN (>60); Glucose 81 mg/dL (74-106); Potassium 3.3 mmoL/L (3.5-5.1); Sodium 142 mmol/L (136-145)
== END ==
PROVIDERS: PCP Internal Medicine Adolescent Medicine; Visit Provider Internal Medicine Adolescent Medicine
DX: I10 Essential (primary) hypertension (principal); E78.5 Hyperlipidemia, unspecified; J84.112 Idiopathic pulmonary fibrosis
CPT/HCPCS: 36415; 80048

== ENCOUNTER → 2018-10-27 09:34 | Outpatient (CLI) | payer MEDICARE, SELFPAY ==
[2018-10-27 13:56] LABS: Basophils % 0.5 % (0.1-2.0); Eosinophils # 0.4 K/mm3 (0.0-0.4); Eosinophils % 8.1 % (0.1-12.0); Hematocrit 40.6 % (37.0-47.0); Hemoglobin 12.6 g/dL (12.2-16.2); Lymphocytes # 1.4 K/mm3 (0.7-4.5); Lymphocytes % 30.6 % (10-50); Mean Corpuscular Hemoglobin 28.5 pg (27.0-31.2); Mean Corpuscular Volume 91.9 fl (81-99); Mean Platelet Volume 8.9 fl (7.4-10.4); Monocytes # 0.4 K/mm3 (0.1-1.0); Monocytes % 8.1 % (1.7-9.3); Neutrophils # 2.4 K/mm3 (1.8-7.8); Neutrophils % 52.6 % (37.0-80.0); Platelet Count 261 K/mm3 (142-424); Red Blood Count 4.42 M/mm3 (4.20-5.40); Red Cell Distribution Width 13.1 % (11.5-17.5); White Blood Count 4.6 K/mm3 (4.8-10.8)
[2018-10-27 15:03] LABS: Alanine Aminotransferase 14 U/L (12-78); Albumin Level 2.9 gm/dL (3.4-5.0); Albumin/Globulin Ratio 0.9 (1.1-1.8); Alkaline Phosphatase 83 U/L (46-116); Anion Gap 10.7 mEq/L (5-15); Aspartate Amino Transferase 15 U/L (15-37); Bilirubin,Total 0.5 mg/dL (0.2-1.0); Blood Urea Nitrogen 13 mg/dL (7-18); Carbon Dioxide 30 mmol/L (21.0-32.0); Chloride 107 mmol/L (98-107); Creatinine,Serum 0.61 mg/dL (0.55-1.02); Estimated Glomerular Filt Rate 95 ml/min (>60); GFR (African American) 114 ML/MIN (>60); Globulin 3.2 gm/dl (1.3-3.2); Glucose 84 mg/dL (74-106); Magnesium 1.9 mg/dL (1.4-2.2); Potassium 3.7 mmoL/L (3.5-5.1); Sodium 144 mmol/L (136-145); Thyroid Stimulating Hormone 0.77 uIU/ml (0.358-3.740); Total Protein,Serum 6.1 gm/dL (6.4-8.2)
== END ==
PROVIDERS: PCP Internal Medicine Adolescent Medicine; Visit Provider Internal Medicine Adolescent Medicine
DX: E87.6 Hypokalemia (principal); E03.9 Hypothyroidism, unspecified; M81.0 Age-related osteoporosis without current pathological fracture
CPT/HCPCS: 36415; 80053; 83735; 84443; 85025

== ENCOUNTER → 2018-11-08 10:13 | Outpatient (POV) | payer MEDICARE, SELFPAY | PROVIDERS: Visit Provider Internal Medicine | DX: Z00.00 Encounter for general adult medical examination without abnormal findings (principal) ==

== ENCOUNTER → 2019-01-05 09:01 | Outpatient (CLI) | payer MEDICARE, SELFPAY ==
[2019-01-05 13:33] LABS: Basophils % 0.5 % (0.1-2.0); Eosinophils # 0.4 K/mm3 (0.0-0.4); Hematocrit 40.3 % (37.0-47.0); Hemoglobin 12.8 g/dL (12.2-16.2); Lymphocytes # 1.7 K/mm3 (0.7-4.5); Lymphocytes % 27.1 % (10-50); Mean Corpuscular HGB Conc 31.7 g/dL (31.8-35.4); Mean Corpuscular Hemoglobin 29.7 pg (27.0-31.2); Mean Corpuscular Volume 93.8 fl (81-99); Mean Platelet Volume 9.2 fl (7.4-10.4); Monocytes # 0.5 K/mm3 (0.1-1.0); Monocytes % 8.6 % (1.7-9.3); Neutrophils # 3.5 K/mm3 (1.8-7.8); Neutrophils % 56.7 % (37.0-80.0); Platelet Count 277 K/mm3 (142-424); Red Cell Distribution Width 13.2 % (11.5-17.5); White Blood Count 6.1 K/mm3 (4.8-10.8)
[2019-01-05 14:37] LABS: Alanine Aminotransferase 11 U/L (12-78); Albumin/Globulin Ratio 0.9 (1.1-1.8); Alkaline Phosphatase 103 U/L (46-116); Aspartate Amino Transferase 15 U/L (15-37); Bilirubin,Total 0.8 mg/dL (0.2-1.0); Blood Urea Nitrogen 12 mg/dL (7-18); Calcium 9.1 mg/dL (8.5-10.1); Carbon Dioxide 28 mmol/L (21.0-32.0); Chloride 106 mmol/L (98-107); Chol/HDL Ratio 3.8 (1-3.5); Cholesterol 229 mg/dL (140-200); Creatinine,Serum 0.62 mg/dL (0.55-1.02); Estimated Glomerular Filt Rate 93 ml/min (>60); GFR (African American) 112 ML/MIN (>60); Globulin 3.5 gm/dl (1.3-3.2); Glucose 84 mg/dL (74-106); HDL Cholesterol 60 mg/dL (29-89); LDL Cholesterol 151 mg/dL (0-130); Sodium 143 mmol/L (136-145); Thyroid Stimulating Hormone 0.64 uIU/ml (0.358-3.740); Total Protein,Serum 6.5 gm/dL (6.4-8.2); Triglycerides 88 mg/dL (30-200); VLDL Cholesterol 18 mg/dL (0-40)
[2019-01-06 06:23] LABS: Vitamin D 25 Hydroxy 24.7 ng/mL (30.0-100.0)
== END ==
PROVIDERS: Visit Provider Nurse Practitioner Family
DX: E03.9 Hypothyroidism, unspecified (principal); E87.6 Hypokalemia; E55.9 Vitamin D deficiency, unspecified
CPT/HCPCS: 36415; 80053; 80061; 82652; 84443; 85025

== ENCOUNTER → 2019-03-15 13:57 | Outpatient (CLI) | payer MEDICARE, SELFPAY ==
[2019-03-15 14:17] LABS: Basophils # 0.1 K/mm3 (0-0.2); Basophils % 0.4 % (0.1-2.0); Eosinophils # 0.2 K/mm3 (0.0-0.4); Eosinophils % 1.8 % (0.1-12.0); Hematocrit 37.5 % (37.0-47.0); Hemoglobin 11.8 g/dL (12.2-16.2); Lymphocytes # 1.7 K/mm3 (0.7-4.5); Lymphocytes % 13.6 % (10-50); Mean Corpuscular HGB Conc 31.4 g/dL (31.8-35.4); Mean Corpuscular Hemoglobin 28.9 pg (27.0-31.2); Mean Corpuscular Volume 92.2 fl (81-99); Mean Platelet Volume 8.2 fl (7.4-10.4); Monocytes # 0.9 K/mm3 (0.1-1.0); Monocytes % 7.3 % (1.7-9.3); Neutrophils # 9.7 K/mm3 (1.8-7.8); Platelet Count 348 K/mm3 (142-424); Red Blood Count 4.07 M/mm3 (4.20-5.40); Red Cell Distribution Width 14.7 % (11.5-17.5); White Blood Count 12.6 K/mm3 (4.8-10.8)
[2019-03-15 14:33] LABS: Alanine Aminotransferase 8 U/L (12-78); Albumin Level 2.6 gm/dL (3.4-5.0); Albumin/Globulin Ratio 0.6 (1.1-1.8); Alkaline Phosphatase 109 U/L (46-116); Anion Gap 14.4 mEq/L (5-15); Aspartate Amino Transferase 15 U/L (15-37); Bilirubin,Total 0.8 mg/dL (0.2-1.0); Blood Urea Nitrogen 14 mg/dL (7-18); Calcium 8.7 mg/dL (8.5-10.1); Carbon Dioxide 27 mmol/L (21.0-32.0); Chloride 100 mmol/L (98-107); Creatinine,Serum 0.87 mg/dL (0.55-1.02); Estimated Glomerular Filt Rate 63 ml/min (>60); GFR (African American) 76 ML/MIN (>60); Globulin 4.5 gm/dl (1.3-3.2); Glucose 100 mg/dL (74-106); Potassium 3.4 mmoL/L (3.5-5.1); Sodium 138 mmol/L (136-145); Total Protein,Serum 7.1 gm/dL (6.4-8.2)
[2019-03-15 15:08] LABS: Microscopic, Urine URINE MICROSCOPIC (MICROSCOPIC)
[2019-03-15 15:45] LABS: Appearance,Urine SL CLOUDY (Clear); Bilirubin,Urine Negative (Negative); Blood, Urine 2+ (Negative); Color,Urine YELLOW (Yellow); Glucose,Urine (UA) Negative (Negative); Ketones,Urine Negative (Negative); Leukocyte Esterase,Urine 3+ (Negative); Nitrate,Urine Negative (Negative); Protein,Urine TRACE (Negative); Specific Gravity, Urine <= 1.005 (1.005-1.030); Urobilinogen,Urine 0.2 EU/dl (0.2)
[2019-03-15 16:22] LABS: Bacteria,Urine Trace /lpf; Squamous Epithelial Cell,Urine Occasional #/hpf (0-5); WBC,Urine TNTC #/hpf (0-3)
== END ==
LOC: LAB.DROPOF 13:59 → LAB 14:50
PROVIDERS: Visit Provider Nurse Practitioner Family
DX: R10.30 Lower abdominal pain, unspecified (principal); N89.8 Other specified noninflammatory disorders of vagina
CPT/HCPCS: 36415; 80053; 81001; 85025; 87086; 87088; 87186

== ENCOUNTER 2019-03-19 17:45 | Inpatient (IN) ==
[2019-03-19 18:18] LABS: Microscopic, Urine URINE MICROSCOPIC (MICROSCOPIC)
[2019-03-19 18:26] LABS: Bilirubin,Urine Negative (Negative); Blood, Urine Negative (Negative); Glucose,Urine (UA) Negative (Negative); Ketones,Urine Negative (Negative); Leukocyte Esterase,Urine 2+ (Negative); PH,Urine 6.5 (5.0-8.5); Protein,Urine Negative (Negative); Specific Gravity, Urine 1.025 (1.005-1.030); Urobilinogen,Urine 0.2 EU/dl (0.2)
[2019-03-19 18:30] LABS: Appearance,Urine Turbid (Clear); Color,Urine Amber (Yellow)
[2019-03-19 18:42] LABS: Bacteria,Urine 3+ /lpf; WBC,Urine 20-50 #/hpf (0-3)
--- NOTE | 2019-03-19 18:43 | Emergency Department Note ---
ED Disposition Clinical Impression: Dizziness Incisional hernia Qualifiers: Obstruction and gangrene presence: without obstruction or gangrene Qualified Code(s): K43.2 - Incisional hernia without obstruction or gangrene Diverticulitis of large intestine with abscess Qualifiers: Diverticulitis bleeding: without bleeding Qualified Code(s): K57.20 - Diverticulitis of large intestine with perforation and abscess without bleeding Disposition: Admitted as Observation Condition on Discharge: [facility] - Critical Care Critical Care Time: No Attestation: On 03/19/19, the high probability of a clinically significant, sudden or life threatening deterioration of the following system(s) required my full and direct attention, intervention and personal management. The time I documented below is in addition to time spent performing reported procedures but includes the following listed in this critical care notation. Medical Decision Making - [place] Inquiry Pt receiving controlled substance: Yes [place] was queried for this patient: No Reason not queried -: Emergent pt cond-no time Risks and benefits of using a controlled substance: were not discussed with pt by me Vital Signs: 03/19/19 17:52 03/19/19 18:05 Temperature 98.1 F 98.1 F Temperature Source Oral Oral Pulse Rate [Right Apical] 93 H 93 H Respiratory Rate 16 16 Blood Pressure [Right Arm] 158/87 H 158/87 H Blood Pressure Mean [Right Arm] 110 110 02 Sat by Pulse Oximetry 98 98 Oxygen Delivery Method Room Air Room Air - Lab Data Lab Results 03/19/19 18:00: Urine Color [place], Urine Appearance Turbid, Urine pH 6.5, Ur Specific [place] 1.025, Urine Protein Negative, Urine Glucose (UA) Negative, Urine Ketones Negative, Urine Blood Negative, Urine Nitrate Negative, Urine Bilirubin Negative, Urine Urobilinogen 0.2, Ur Leukocyte Esterase 2+ A, Urine RBC 5-10, Urine WBC 20-50, Ur Squamous Epith Cells 5-10, Urine Bacteria 3+ 03/19/19 18:51: WBC 13.0 H, RBC 3.98 L, Hgb 11.6 L, Hct 37.1, MCV 93.2, MCH 29.2, MCHC 31.3 L, RDW 13.4, Plt Count 318, MPV 8.7, Neut % (Auto) 80.4 H, Lymph % (Auto) 9.3 L, [place] % (Auto) 7.3, Eos % (Auto) 2.6, Baso % (Auto) 0.4, Neut # (Auto) 10.5 H, Lymph # (Auto) 1.2, [place] # (Auto) 1.0, Eos # (Auto) 0.3, Baso # (Auto) 0.1 03/19/19 18:51: Sodium 143, Potassium 5.4 H, Chloride 106, Carbon Dioxide 30, Anion Gap 12.4, BUN 15, Creatinine 0.94, Estimated Creat Clear 55, Estimated GFR 57 L, Est GFR ( Amer) 70, Glucose 104, Calcium 9.2, Troponin I < 0.02, Amylase 27, Lipase 52 L Result diagrams: 03/19/19 18:51 03/19/19 18:51 Orders (Tests/Meds): ED MEDICATIONS Generic Name Dose Route Start Last Admin Trade Name Freq PRN Reason Stop Dose Admin Ertapenem 1 gm/ Sodium 50 mls @ 100 mls/hr 03/19/19 21:00 Chloride IV 04/02/19 20:59 Q24H DANIEL Protocol Morphine Sulfate 2 mg 03/19/19 21:10 Morphine 4mg/Ml Syringe IV 03/19/19 21:11 ONCE ONE Ondansetron HCl 4 mg 03/19/19 21:10 Zofran 4mg/2ml Vial IV 03/19/19 21:11 ONCE ONE Discontinued Medications Generic Name Dose Route Start Last Admin Trade Name Freq PRN Reason Stop Dose Admin Ioversol 75 ml 03/19/19 19:54 03/19/19 19:55 Rad-Optiray 350 100ml Vial IV 03/19/19 19:55 75 ml ONCE ONE Administration Protocol Sodium Chloride 10 ml 03/19/19 19:54 03/19/19 19:55 Rad-Saline Flush 10ml Syringe IV 03/19/19 19:55 10 ml ONCE ONE Administration ORDERS Category Date Time Status CT abdomen pelvis w con Stat Cat Scan 03/19/19 19:02 Taken Troponin I Q3H Lab 03/19/19 22:15 Ordered Troponin I Q3H Lab 03/20/19 01:15 Ordered Urine Culture Stat Micro 03/19/19 18:00 Received - CT Data CT Scan: Abdomen, Pelvis Time Received: 21:14 ([facility] fax) ED CT Reviewed: Yes: I discussed the CT results w/the radiologist, I have viewed the radiologist's interpretation Findings Narrative: Left lower abdominal quadrant soft tissue abscess measuring 3 x 1.9 x 4 cm position in close proximity to the left lower quadrant ventral peritoneum. Acute short segment diverticulitis at the junction of the distal descending colon and proximal sigmoid colon. - ECG Data Tracing #1 EKG interpreted by Mario Modi MD: Rhythm: sinus Rate: 92 [place]: Left Ectopy: none Conduction: normal ST Segment Changes: none T Wave Changes: none Q Waves: none No evidence of acute ischemia or injury LVH - Physician Consults Physician Consulted: Dr. Beltrán Time: 21:13 Reason -: Admission Comment/Response: Agrees to admit the patient to the hospital. We discussed the patient's clinical information, including history, exam, laboratory and radiology results and ED course. Per hospital procedure, I will write temporary bridge inpatient orders on the patient. Specific orders requested by the admitting physician: Clear liquids, Invanz, morphine for pain, consult surgery for the morning General Adult HPI - General Chief complaint: Abdominal Pain Stated complaint: LOWER ABD PAIN Time Seen by Provider: 03/19/19 18:43 Mode of Arrival: Ambulatory Limitations: No Limitations Description of Symptoms (Recalled from ER Triage Doc. by RN): Patient presents to the Ed with c/o severe abdominal pain that has gotten worse since Wednesday, She saw her PCP wednesday who prescribed her Macrobid and she feels like she has gotten worse. - History of Present Illness HPI narrative: Patient complains of lower abdominal pain. She says "I have been fighting this for a month or 2". States she has had pain off and on, especially when she coughs. However over the past week to 2 it is gotten worse and she said it is constant about 90% of the time. No diarrhea or constipation. Last bowel movement today at noon. Denies urinary symptoms. Denies fever. Also complains of lightheadedness a few times when she stands up. She saw Lorena and Dr. Beltrán's office on Wednesday 4 days ago who did blood work and urine and thought it might be a urinary tract infection and put her on antibiotics, but she has not gotten better. Patient states "I do not think it is that". She said Lorena told her she did not improve to come to the emergency department or see her again this coming . Patient says she felt worse today and therefore came to the emergency room. She says in the past she has been told that she has a touch of diverticulitis. Last colonoscopy about 4 to 5 years ago. States only prior abdominal surgery is a hysterectomy. - Related Data Home Medications Medication Instructions Recorded Confirmed Aspirin 81 mg PO DAILY 03/23/18 05/13/18 Famotidine [Acid Controller] 20 mg PO BID 03/23/18 05/13/18 Fluticasone/Vilanterol [Breo 1 puff INHALATION DAILY 03/23/18 05/13/18 Ellipta 200-25 Mcg INH] Levothyroxine Sodium 75 mcg PO DAILY 03/23/18 05/13/18 [Levothyroxine 75mcg (0.075mg) Tab] Cholecalciferol (Vitamin D3) 5,000 unit PO DAILY 04/22/18 05/13/18 [Vitamin D3] Alendronate Sodium 35 mg PO WEEKLY 03/19/19 03/19/19 Losartan Potassium [Cozaar 50mg 50 mg PO DAILY 03/19/19 03/19/19 Tablets] Nitrofurantoin Monohyd/M-Cryst 100 mg PO BID 03/19/19 03/19/19 [Macrobid 100 mg Capsule] Rosuvastatin Calcium [Crestor 10mg 10 mg PO DAILY 03/19/19 03/19/19 Tablets] Allergies Allergy/AdvReac Type Severity Reaction Status Date / Time levofloxacin [From LEVAQUIN] Allergy Mild Verified 03/23/18 11:53 vancomycin Allergy Verified 03/19/19 21:03 [facility] History - Hepatitis A Screen Drug use history?: No High risk sexual behaviors?: No History of sexually transmitted infection?: No Currently employed?: No Childcare worker?: No Do you have indoor plumbing?: No Do you have electricity?: No Attestation statement:: This patient has been screened for Hepatitis A risk factors. I have reviewed the patient's past medical history: Yes Medical History: Reports:: Chronic Obstructive Pulmonary Disease (COPD), Lung Disease Denies:: Cancer, Diabetes Mellitus Type 1, Diabetes Mellitus Type 2, MRSA Other Medical History: Reports: Arthritis, Hypothyroidism Laterality Cases: Bilateral: Tonsillectomy Other Surgeries: Yes: Hysterectomy-Total Amputation: No Fractures: No - Social History Smoking Status: Former smoker Alcohol Intake: never Occupational Status: retired Housing: house Household Members: none Family Hx:: Cancer, Stroke ROS Obtained: Yes All systems reviewed & no additional complaints - Constitutional Constitutional: Reports as per HPI (Dizziness), Denies fatigue - Cardiovascular Cardiovascular: Denies chest pain - Respiratory Respiratory: No dyspnea - Gastrointestinal Gastrointestingal: Reports: abdominal pain. Denies: constipation, diarrhea, vomiting - Genitourinary Female Genitourinary: Denies dysuria Physical Exam - General General appearance: alert, in no apparent distress - Head Head exam: atraumatic, normocephalic - Eye Eye exam: Present: normal appearance, EOMI - ENT ENT exam: Present: mucous membranes moist - Neck Neck exam: Present: normal inspection, trachea midline - Chest Chest inspection: Present: normal inspection, symmetric chest wall rise - Respiratory Respiratory exam: Present: normal lung sounds bilaterally. Absent: respiratory distress - Cardiovascular Cardiovascular exam: Present: regular rate, normal rhythm, normal heart sounds - Abdominal Exam Abdominal exam: Present: tenderness, guarding, normal bowel sounds Abdominal tenderness: Present: diffuse Comment: Most tender across the lower abdomen - Extremities Exam Extremities exam: Present: normal inspection - Neurological Exam Neurological exam: Present: alert, oriented X3 - Psychiatric Psychiatric exam: Present: normal affect, normal mood - Skin Skin exam: Present: warm, dry
[2019-03-19 18:57] LABS: Basophils # 0.1 K/mm3 (0-0.2); Basophils % 0.4 % (0.1-2.0); Eosinophils # 0.3 K/mm3 (0.0-0.4); Eosinophils % 2.6 % (0.1-12.0); Hematocrit 37.1 % (37.0-47.0); Hemoglobin 11.6 g/dL (12.2-16.2); Lymphocytes # 1.2 K/mm3 (0.7-4.5); Lymphocytes % 9.3 % (10-50); Mean Corpuscular HGB Conc 31.3 g/dL (31.8-35.4); Mean Corpuscular Volume 93.2 fl (81-99); Mean Platelet Volume 8.7 fl (7.4-10.4); Monocytes % 7.3 % (1.7-9.3); Neutrophils # 10.5 K/mm3 (1.8-7.8); Neutrophils % 80.4 % (37.0-80.0); Platelet Count 318 K/mm3 (142-424); Red Blood Count 3.98 M/mm3 (4.20-5.40); Red Cell Distribution Width 13.4 % (11.5-17.5)
[2019-03-19 19:18] LABS: Amylase 27 U/L (25-115); Anion Gap 12.4 mEq/L (5-15); Blood Urea Nitrogen 15 mg/dL (7-18); Calcium 9.2 mg/dL (8.5-10.1); Carbon Dioxide 30 mmol/L (21.0-32.0); Chloride 106 mmol/L (98-107); Glucose 104 mg/dL (74-106); Sodium 143 mmol/L (136-145)
[2019-03-20 06:01] LABS: Anion Gap 9.9 mEq/L (5-15); Calcium 8.5 mg/dL (8.5-10.1)
[2019-03-20 06:26] LABS: Basophils % 0.3 % (0.1-2.0); Eosinophils # 0.2 K/mm3 (0.0-0.4); Eosinophils % 1.6 % (0.1-12.0); Hematocrit 33.3 % (37.0-47.0); Hemoglobin 10.5 g/dL (12.2-16.2); Lymphocytes % 9.5 % (10-50); Mean Corpuscular HGB Conc 31.4 g/dL (31.8-35.4); Mean Corpuscular Volume 91.8 fl (81-99); Mean Platelet Volume 8.5 fl (7.4-10.4); Monocytes # 0.7 K/mm3 (0.1-1.0); Monocytes % 6.2 % (1.7-9.3); Neutrophils # 8.7 K/mm3 (1.8-7.8); Neutrophils % 82.4 % (37.0-80.0); Platelet Count 303 K/mm3 (142-424); Red Blood Count 3.63 M/mm3 (4.20-5.40); Red Cell Distribution Width 13.5 % (11.5-17.5); White Blood Count 10.6 K/mm3 (4.8-10.8)
--- NOTE | 2019-03-20 07:16 | Pharmacy Consult Notes ---
[facility] Pharmacy VTE Monitoring - Patient Demographics Admission date: 03/19/19 Report Date: 03/20/19 Time: 07:16 Allergies/Adverse Reactions: Patient Allergies levofloxacin [From LEVAQUIN] Allergy (Mild, Verified 03/23/18 11:53) vancomycin Allergy (Verified 03/19/19 21:03) Height: 1.57 m Weight: 75.835 kg Patient Problems: Current Active Problems Dizziness (Acute) Incisional hernia (Acute) Diverticulitis of large intestine with abscess (Acute) - VTE Risk Labs: VTE Related Lab Results Hgb 10.5 g/dL (12.2-16.2) L 03/20/19 05:30 Hct 33.3 % (37.0-47.0) L 03/20/19 05:30 Plt Count 303 K/mm3 (142-424) 03/20/19 05:30 BUN 13 mg/dL (7-18) 03/20/19 05:30 Creatinine 0.68 mg/dL (0.55-1.02) D 03/20/19 05:30 Estimated Creat Clear 55 mL/min (50-200) 03/20/19 05:30 Was VTE Risk Assessment Performed: Yes VTE Score: 4 VTE Risk Level: Low Risk - Prophylaxis VTE Prophylaxis Ordered?: Yes Types of VTE Prophylaxis: TEDS Knee High Location of Applied Device: Bilateral Lower Extremeties - VTE Diagnosis Confirmed Treatment or plan recommended: Continue Current Treatment
--- NOTE | 2019-03-20 08:09 | Consult Report ---
*Admission Date: 03/19/19 *Reason for consult:: Abdominal wall hernia; Abscess; Diverticulitis *History of present illness: This is a 78yo female seen in consultation from Dr. Beltrán after presenting to the ED with increasing lower abdominal pain. See HPI from ED evaluation forwarded below. HPI from ED: Patient complains of lower abdominal pain. She says "I have been fighting this for a month or 2". States she has had pain off and on, especially when she coughs. However over the past week to 2 it is gotten worse and she said it is constant about 90% of the time. No diarrhea or constipation. Last bowel movement today at noon. Denies urinary symptoms. Denies fever. Also complains of lightheadedness a few times when she stands up. She saw Lorena and Dr. Beltrán's office on Wednesday 4 days ago who did blood work and urine and thought it might be a urinary tract infection and put her on antibiotics, but she has not gotten better. Patient states "I do not think it is that". She said Lorena told her she did not improve to come to the emergency department or see her again this coming . Patient says she felt worse today and therefore came to the emergency room. She says in the past she has been told that she has a touch of diverticulitis. Last colonoscopy about 4 to 5 years ago. States only prior abdominal surgery is a hysterectomy. Review of Systems - Constitutional Denies chills - ENT Reports dizziness - *Cardiovascular Denies chest pain - *Respiratory Reports shortness of breath, Denies cough, Denies wheezing - *Gastrointestinal Reports abdominal pain, Denies constipation, Denies loose stools - Integumentary/Breasts Denies bleeding lesions - *Neurologic Denies abnormal movements - Psychiatric Denies anxiety - Hematologic/Lymphatic Denies easy bleeding [facility] History Medical History: Reports:: Chronic Obstructive Pulmonary Disease (COPD), Hypertension, Lung Disease Denies:: Cancer, Diabetes Mellitus Type 1, Diabetes Mellitus Type 2, MRSA *Have you ever received a pneumonia vaccine?: Yes *Have you received a flu vaccine this season?: Yes Other Medical History: Reports: Arthritis, Hypothyroidism Laterality Cases: Bilateral: Tonsillectomy Other Surgeries: Yes: Hysterectomy-Total Amputation: No Fractures: No - *Social History Educational Level: Completed High School Smoking Status: Former smoker Tobacco Type: cigarettes # Packs/Day (cigarettes): 1 #Yrs smoked (if former smoker): 35 Smoking End Date: 1999 Alcohol Intake: current Alcohol Intake Frequency:: holidays/special occasions only *Occupational Status:: retired Housing: house Household Members: none *Travel in the last 8 weeks: None Family Hx:: Cancer, Stroke Meds Home Medications Medication Instructions Recorded Confirmed Type Aspirin 81 mg PO DAILY 03/23/18 03/20/19 History Famotidine [Acid Controller] 20 mg PO BID 03/23/18 03/20/19 History Fluticasone/Vilanterol [Breo 1 puff INHALATION DAILY 03/23/18 03/20/19 History Ellipta 200-25 Mcg INH] Levothyroxine Sodium 75 mcg PO DAILY 03/23/18 03/20/19 History [Levothyroxine 75mcg (0.075mg) Tab] Alendronate Sodium 35 mg PO WEEKLY 03/19/19 03/20/19 History Losartan Potassium [Cozaar 50mg 50 mg PO DAILY 03/19/19 03/20/19 History Tablets] Rosuvastatin Calcium [Crestor 10mg 10 mg PO DAILY 03/19/19 03/20/19 History Tablets] Allergies Allergy/AdvReac Type Severity Reaction Status Date / Time levofloxacin [From [facility]] Allergy Mild Verified 03/23/18 11:53 vancomycin Allergy Verified 03/19/19 21:03 Exam Vital signs and Labs for Last 24 Hours: Temp Pulse Resp BP Pulse Ox 98.9 F 83 16 118/60 96 03/20/19 04:00 03/20/19 04:00 03/20/19 04:00 03/20/19 04:00 03/20/19 04:00 Laboratory Results - last 24 hr 03/19/19 18:00: Urine Color Loni, Urine Appearance Turbid, Urine pH 6.5, Ur Specific [place] 1.025, Urine Protein Negative, Urine Glucose (UA) Negative, Urine Ketones Negative, Urine Blood Negative, Urine Nitrate Negative, Urine Bilirubin Negative, Urine Urobilinogen 0.2, Ur Leukocyte Esterase 2+ A, Urine RBC 5-10, Urine WBC 20-50, Ur Squamous Epith Cells 5-10, Urine Bacteria 3+ 03/19/19 18:51: WBC 13.0 H, RBC 3.98 L, Hgb 11.6 L, Hct 37.1, MCV 93.2, MCH 29.2, MCHC 31.3 L, RDW 13.4, Plt Count 318, MPV 8.7, Neut % (Auto) 80.4 H, Lymph % (Auto) 9.3 L, [place] % (Auto) 7.3, Eos % (Auto) 2.6, Baso % (Auto) 0.4, Neut # (Auto) 10.5 H, Lymph # (Auto) 1.2, [place] # (Auto) 1.0, Eos # (Auto) 0.3, Baso # ( Auto) 0.1 03/19/19 18:51: Sodium 143, Potassium 5.4 H, Chloride 106, Carbon Dioxide 30, Anion Gap 12.4, BUN 15, Creatinine 0.94, Estimated Creat Clear 55, Estimated GFR 57 L, Est GFR ( Amer) 70, Glucose 104, Calcium 9.2, Troponin I < 0.02, Amylase 27, Lipase 52 L 03/19/19 22:30: Troponin I < 0.02 03/20/19 01:20: Troponin I < 0.02 03/20/19 05:30: WBC 10.6, RBC 3.63 L, Hgb 10.5 L, Hct 33.3 L, MCV 91.8, MCH 28.9, MCHC 31.4 L, RDW 13.5, Plt Count 303, MPV 8.5, Neut % (Auto) 82.4 H, Lymph % (Auto) 9.5 L, [place] % (Auto) 6.2, Eos % (Auto) 1.6, Baso % (Auto) 0.3, Neut # (Auto) 8.7 H, Lymph # (Auto) 1.0, [place] # (Auto) 0.7, Eos # (Auto) 0.2, Baso # (Auto) 0.0 03/20/19 05:30: Sodium 138, Potassium 3.9 D, Chloride 103, Carbon Dioxide 29, Anion Gap 9.9, BUN 13, Creatinine 0.68 D, Estimated Creat Clear 55, Estimated GFR 83, Est GFR ( Amer) 101 D, Glucose 98, Calcium 8.5 I & O for Last 24 hours: Intake & Output 03/17/19 03/18/19 03/19/19 12/02/19 11:59 11:59 11:59 11:59 Intake Total 50 / 50 Balance 50 / 50 Weight 167 lb 3 oz - Constitutional no acute distress - *Routine Respiratory Exam Absent: respiratory distress - *Routine Cardiovascular Exam Present: RRR - *Routine Abdominal Exam Present: tenderness Comments: firm tenderness with mass-effect in LLQ - *Routine Neurological Exam Present: alert - Routine Psychiatric Exam Present: normal affect Results - Labs 03/20/19 05:30 03/20/19 05:30 Laboratory Results - last 24 hr 03/19/19 18:00: Urine Color Loni, Urine Appearance Turbid, Urine pH 6.5, Ur Specific [place] 1.025, Urine Protein Negative, Urine Glucose (UA) Negative, Urine Ketones Negative, Urine Blood Negative, Urine Nitrate Negative, Urine Bilirubin Negative, Urine Urobilinogen 0.2, Ur Leukocyte Esterase 2+ A, Urine RBC 5-10, Urine WBC 20-50, Ur Squamous Epith Cells 5-10, Urine Bacteria 3+ 03/19/19 18:51: WBC 13.0 H, RBC 3.98 L, Hgb 11.6 L, Hct 37.1, MCV 93.2, MCH 29.2, MCHC 31.3 L, RDW 13.4, Plt Count 318, MPV 8.7, Neut % (Auto) 80.4 H, Lymph % (Auto) 9.3 L, [place] % (Auto) 7.3, Eos % (Auto) 2.6, Baso % (Auto) 0.4, Neut # (Auto) 10.5 H, Lymph # (Auto) 1.2, [place] # (Auto) 1.0, Eos # (Auto) 0.3, Baso # (Auto) 0.1 03/19/19 18:51: Sodium 143, Potassium 5.4 H, Chloride 106, Carbon Dioxide 30, Anion Gap 12.4, BUN 15, Creatinine 0.94, Estimated Creat Clear 55, Estimated GFR 57 L, Est GFR ( Amer) 70, Glucose 104, Calcium 9.2, Troponin I < 0.02, Amylase 27, Lipase 52 L 03/19/19 22:30: Troponin I < 0.02 03/20/19 01:20: Troponin I < 0.02 03/20/19 05:30: WBC 10.6, RBC 3.63 L, Hgb 10.5 L, Hct 33.3 L, MCV 91.8, MCH 28.9, MCHC 31.4 L, RDW 13.5, Plt Count 303, MPV 8.5, Neut % (Auto) 82.4 H, Lymph % (Auto) 9.5 L, [place] % (Auto) 6.2, Eos % (Auto) 1.6, Baso % (Auto) 0.3, Neut # (Auto) 8.7 H, Lymph # (Auto) 1.0, [place] # (Auto) 0.7, Eos # (Auto) 0.2, Baso # (Auto) 0.0 03/20/19 05:30: Sodium 138, Potassium 3.9 D, Chloride 103, Carbon Dioxide 29, Anion Gap 9.9, BUN 13, Creatinine 0.68 D, Estimated Creat Clear 55, Estimated GFR 83, Est GFR ( Amer) 101 D, Glucose 98, Calcium 8.5 Assessment and Plan (1) Abdominal abscess Current visit: Yes Status: Acute Category: Medical In proximity to/with fat-containing hernia. May also be extension from diverticulitis. The patient's comorbid condition of oxygen-dependent pulmonary fibrosis greatly increases the risks of any intervention requiring sedation. I will discuss possible ultrasound or CT-guided drainage procedures with radiology. (2) Diverticula of colon Current visit: Yes Status: Acute Category: Medical Code(s): K57.30 - Diverticulosis of large intestine without perforation or abscess without bleeding continue abx for now (see above) (3) Incisional hernia Current visit: Yes Status: Acute Qualifiers: Obstruction and gangrene presence: without obstruction or gangrene Qualified Code(s): K43.2 - Incisional hernia without obstruction or gangrene; K43.91 - Incisional hernia, without obstruction or gangrene Category: Medical Code(s): K43.2 - Incisional hernia without obstruction or gangrene (4) Pulmonary fibrosis Current visit: No Status: Chronic Category: Medical Code(s): J84.10 - Pulmonary fibrosis, unspecified
--- NOTE | 2019-03-20 08:41 | History & Physical Report ---
*Admission Date: 03/19/19 *Chief complaint: Abdominal pain/nausea *History of present illness: Patient complains of lower abdominal pain. She says "I have been fighting this for a month or 2". States she has had pain off and on, especially when she coughs. However over the past week to 2 it is gotten worse and she said it is constant about 90% of the time. No diarrhea or constipation. Last bowel movement today at noon. Denies urinary symptoms. Denies fever. Also complains of lightheadedness a few times when she stands up. She was seen in our office on Wednesday 4 days ago her blood work blood work and urine was done and revealed evidence of a urinary tract infection and she was placed on anti biotics, but she has not gotten better. Patient states "I do not think it is that". She said Lorena told her she did not improve to come to the emergency department or see her again this coming . Patient says she felt worse today and therefore came to the emergency room. She says in the past she has been told that she has a touch of diverticulitis. Last colonoscopy about 4 to 5 years ago. States only prior abdominal surgery is a hysterectomy. [facility] History I have reviewed the patient's past medical history: Yes Medical History: Reports:: Chronic Obstructive Pulmonary Disease (COPD), Hypertension, Lung Disease Denies:: Cancer, Diabetes Mellitus Type 1, Diabetes Mellitus Type 2, MRSA *Have you ever received a pneumonia vaccine?: Yes *Have you received a flu vaccine this season?: Yes Other Medical History: Reports: Arthritis, Hypothyroidism Laterality Cases: Bilateral: Tonsillectomy Other Surgeries: Yes: Hysterectomy-Total Amputation: No Fractures: No - *Social History Educational Level: Completed High School Smoking Status: Former smoker Tobacco Type: cigarettes # Packs/Day (cigarettes): 1 #Yrs smoked (if former smoker): 35 Smoking End Date: 1999 Alcohol Intake: current Alcohol Intake Frequency:: holidays/special occasions only *Occupational Status:: retired Housing: house Household Members: none *Travel in the last 8 weeks: None Family Hx:: Cancer, Stroke Review of Systems - Review of Systems Review of systems:: pertinent systems reviewed and negative unless documented below - Constitutional Reports anorexia, Denies malaise, Denies night sweats - Eyes Denies blind spots, Denies blurry vision - ENT Denies abnormal hearing, Denies poor balance - *Cardiovascular Denies chest pain - *Respiratory Denies change in phlegm color, Denies shortness of breath with activity - *Gastrointestinal Reports abdominal pain, Reports change in stools, Denies loose stools - *Musculoskeletal Denies abnormal walking, Denies joint swelling - Integumentary/Breasts Denies acne - *Neurologic Reports dizziness, Denies abnormal movements Meds Home Medications Medication Instructions Recorded Confirmed Type Aspirin 81 mg PO DAILY 03/23/18 03/20/19 History Famotidine [Acid Controller] 20 mg PO BID 03/23/18 03/20/19 History Fluticasone/Vilanterol [Breo 1 puff INHALATION DAILY 03/23/18 03/20/19 History Ellipta 200-25 Mcg INH] Levothyroxine Sodium 75 mcg PO DAILY 03/23/18 03/20/19 History [Levothyroxine 75mcg (0.075mg) Tab] Alendronate Sodium 35 mg PO WEEKLY 03/19/19 03/20/19 History Losartan Potassium [Cozaar 50mg 50 mg PO DAILY 03/19/19 03/20/19 History Tablets] Rosuvastatin Calcium [Crestor 10mg 10 mg PO DAILY 03/19/19 03/20/19 History Tablets] Allergies Allergy/AdvReac Type Severity Reaction Status Date / Time levofloxacin [From [facility]] Allergy Mild Verified 03/23/18 11:53 vancomycin Allergy Verified 03/19/19 21:03 Exam Vital signs and Labs for Last 24 Hours: Temp Pulse Resp BP Pulse Ox 98.9 F 83 16 118/60 96 03/20/19 04:00 03/20/19 04:00 03/20/19 04:00 03/20/19 04:00 03/20/19 04:00 Laboratory Results - last 24 hr 03/19/19 18:00: Urine Color Loni, Urine Appearance Turbid, Urine pH 6.5, Ur Specific [place] 1.025, Urine Protein Negative, Urine Glucose (UA) Negative, Urine Ketones Negative, Urine Blood Negative, Urine Nitrate Negative, Urine Bilirubin Negative, Urine Urobilinogen 0.2, Ur Leukocyte Esterase 2+ A, Urine RBC 5-10, Urine WBC 20-50, Ur Squamous Epith Cells 5-10, Urine Bacteria 3+ 03/19/19 18:51: WBC 13.0 H, RBC 3.98 L, Hgb 11.6 L, Hct 37.1, MCV 93.2, MCH 29.2, MCHC 31.3 L, RDW 13.4, Plt Count 318, MPV 8.7, Neut % (Auto) 80.4 H, Lymph % (Auto) 9.3 L, [place] % (Auto) 7.3, Eos % (Auto) 2.6, Baso % (Auto) 0.4, Neut # (Auto) 10.5 H, Lymph # (Auto) 1.2, [place] # (Auto) 1.0, Eos # (Auto) 0.3, Baso # (Auto) 0.1 03/19/19 18:51: Sodium 143, Potassium 5.4 H, Chloride 106, Carbon Dioxide 30, Anion Gap 12.4, BUN 15, Creatinine 0.94, Estimated Creat Clear 55, Estimated GFR 57 L, Est GFR ( Amer) 70, Glucose 104, Calcium 9.2, Troponin I < 0.02, Amylase 27, Lipase 52 L 03/19/19 22:30: Troponin I < 0.02 03/20/19 01:20: Troponin I < 0.02 03/20/19 05:30: WBC 10.6, RBC 3.63 L, Hgb 10.5 L, Hct 33.3 L, MCV 91.8, MCH 28.9, MCHC 31.4 L, RDW 13.5, Plt Count 303, MPV 8.5, Neut % (Auto) 82.4 H, Lymph % (Auto) 9.5 L, [place] % (Auto) 6.2, Eos % (Auto) 1.6, Baso % (Auto) 0.3, Neut # (Auto) 8.7 H, Lymph # (Auto) 1.0, [place] # (Auto) 0.7, Eos # (Auto) 0.2, Baso # (Auto) 0.0 03/20/19 05:30: Sodium 138, Potassium 3.9 D, Chloride 103, Carbon Dioxide 29, Anion Gap 9.9, BUN 13, Creatinine 0.68 D, Estimated Creat Clear 55, Estimated GFR 83, Est GFR ( Amer) 101 D, Glucose 98, Calcium 8.5 I & O for Last 24 hours: Intake & Output 03/17/19 03/18/19 03/19/19 03/20/19 11:59 11:59 11:59 11:59 Intake Total 50 / 50 Balance 50 / 50 Weight 167 lb 3 oz Narrative: Patient is pleasant, talkative, alert, oriented x3. ENT exam clear. Lungs have good air movement. Abdomen soft, tender in the left lower quadrant, rebound noted. No peripheral edema. Heart rate regular Neurologically intact. Assessment and Plan (1) Abdominal abscess Current visit: Yes Status: Acute Category: Medical (2) Diverticula of colon Current visit: Yes Status: Acute Category: Medical Code(s): K57.30 - Diverticulosis of large intestine without perforation or abscess without bleeding (3) Incisional hernia Current visit: Yes Status: Acute Qualifiers: Obstruction and gangrene presence: without obstruction or gangrene Qualified Code(s): K43.2 - Incisional hernia without obstruction or gangrene; K43.91 - Incisional hernia, without obstruction or gangrene Category: Medical Code(s): K43.2 - Incisional hernia without obstruction or gangrene (4) Pulmonary fibrosis Current visit: No Status: Chronic Category: Medical Code(s): J84.10 - Pulmonary fibrosis, unspecified - Assessment and plan all Dx Assessment and Plan for all problems:: Stable. Current antibiotics infusing. Await surgical consultation.
--- NOTE | 2019-03-20 10:13 | Electrocardiograph Report ---
APPROVED REPORT Exam: Resting ECG HR:92 bpm ECG Measurements Heart Rate 92 AXES NH 164 P 48 QRSd 80 QRS -17 QT 348 T27 QTc 430 <Conclusion> Normal sinus rhythm Voltage criteria for left ventricular hypertrophy Abnormal ECG Electronically signed by : Rick Beltrán, 03/20/2019 10:13:33
[2019-03-21 06:25] LABS: Basophils % 0.1 % (0.1-2.0); Eosinophils # 0.4 K/mm3 (0.0-0.4); Eosinophils % 5.3 % (0.1-12.0); Hematocrit 34.5 % (37.0-47.0); Lymphocytes # 1.1 K/mm3 (0.7-4.5); Lymphocytes % 13.2 % (10-50); Mean Corpuscular HGB Conc 31.9 g/dL (31.8-35.4); Mean Corpuscular Volume 90.7 fl (81-99); Mean Platelet Volume 8.3 fl (7.4-10.4); Monocytes # 0.6 K/mm3 (0.1-1.0); Monocytes % 7.7 % (1.7-9.3); Neutrophils # 5.9 K/mm3 (1.8-7.8); Neutrophils % 73.7 % (37.0-80.0); Platelet Count 294 K/mm3 (142-424); Red Cell Distribution Width 13.5 % (11.5-17.5)
--- NOTE | 2019-03-21 06:49 | Progress Note ---
Subjective Patient reports: feels better Exam Vital signs and Labs for Last 24 Hours: Temp Pulse Resp BP Pulse Ox 98.1 F 77 21 122/60 100 03/21/19 04:00 03/21/19 04:00 03/21/19 04:00 03/21/19 04:00 03/21/19 04:00 Laboratory Results - last 24 hr 03/21/19 05:57: WBC 8.0, RBC 3.80 L, Hgb 11.0 L, Hct 34.5 L, MCV 90.7, MCH 28.9, MCHC 31.9, RDW 13.5, Plt Count 294, MPV 8.3, Neut % (Auto) 73.7, Lymph % (Auto) 13.2, [place] % (Auto) 7.7, Eos % (Auto) 5.3, Baso % (Auto) 0.1, Neut # (Auto) 5.9, Lymph # (Auto) 1.1, [place] # (Auto) 0.6, Eos # (Auto) 0.4, Baso # (Auto) 0.0 I & O for Last 24 hours: Intake & Output 03/18/19 03/19/19 03/20/19 03/21/19 11:59 11:59 11:59 11:59 Intake Total 530 / 530 360 / 360 Balance 530 / 530 360 / 360 Weight 167 lb 3 oz 171 lb 3 oz Microbiology Reports for the Last 24 Hours: Microbiology 03/20/19 14:05 Abdomen Gram Stain - Final 03/19/19 18:00 Urine,Clean Catch Urine Culture - Preliminary NO GROWTH AFTER 24 HOURS 03/20/19 14:05 Abdomen - Final Not Reportable 03/20/19 14:05 Abdomen - Final Not Reportable 03/20/19 14:05 Abdomen - Final Not Reportable 03/20/19 14:05 Abdomen - Final Not Reportable 03/20/19 14:05 Abdomen - Final Not Reportable Narrative: She underwent CT-guided aspiration of her intra-abdominal/abdominal wall abscess yesterday. The collection was "too shallow" for placement of indwelling catheter. - Constitutional no acute distress - *Routine Respiratory Exam Absent: respiratory distress - *Routine Cardiovascular Exam Present: RRR - *Routine Abdominal Exam Present: soft Comments: Less tender. No cellulitis. Small amount of drainage from aspiration "stick site". Progress Note: A&P (1) Abdominal abscess Status: Acute Assessment and plan: Overall, doing well status post CT-guided aspiration of abscess. Continue Invanz for now Possible placement of PICC for continuation of IV antibiotics as an outpatient Current Visit: Yes (2) Diverticula of colon Status: Acute Current Visit: Yes (3) Incisional hernia Status: Acute Current Visit: Yes (4) Pulmonary fibrosis Status: Chronic Current Visit: No
--- NOTE | 2019-03-21 08:35 | Progress Note ---
Internal Medicine - PN: Subj *Date: 03/21/19 *Time: 08:32 Interval history: Ms. alvarez did well overnight. Tolerating liquid diet. Remains afebrile. No nausea, vomiting, diarrhea. Still having abdominal pain. Tolerated procedure yesterday well without difficulty. Still feels fatigued, lives by herself. Does not feel she is able to go home and manage ADLs on her own at this time. Exam Vital signs and Labs for Last 24 Hours: Temp Pulse Resp BP Pulse Ox 98.1 F 63 18 129/54 L 97 03/21/19 08:00 03/21/19 08:00 03/21/19 08:00 03/21/19 08:00 03/21/19 08:00 Laboratory Results - last 24 hr 03/21/19 05:57: WBC 8.0, RBC 3.80 L, Hgb 11.0 L, Hct 34.5 L, MCV 90.7, MCH 28.9, MCHC 31.9, RDW 13.5, Plt Count 294, MPV 8.3, Neut % (Auto) 73.7, Lymph % (Auto) 13.2, [place] % (Auto) 7.7, Eos % (Auto) 5.3, Baso % (Auto) 0.1, Neut # (Auto) 5.9, Lymph # (Auto) 1.1, [place] # (Auto) 0.6, Eos # (Auto) 0.4, Baso # (Auto) 0.0 I & O for Last 24 hours: Intake & Output 03/18/19 03/19/19 03/20/19 03/21/19 23:59 23:59 23:59 23:59 Intake Total 50 / 50 840 / 840 480 / 480 Balance 50 / 50 840 / 840 480 / 480 Weight 75.863 kg 75.835 kg 77.649 kg Microbiology Reports for the Last 24 Hours: Microbiology 03/19/19 18:00 Urine,Clean Catch Urine Culture - Final Multiple organisms, suggests contamination. 03/20/19 14:05 Abdomen Gram Stain - Final 03/20/19 14:05 Abdomen - Final Not Reportable 03/20/19 14:05 Abdomen - Final Not Reportable 03/20/19 14:05 Abdomen - Final Not Reportable 03/20/19 14:05 Abdomen - Final Not Reportable 03/20/19 14:05 Abdomen - Final Not Reportable Narrative: Patient is pleasant, talkative, alert, oriented x3. ENT exam clear. Lungs have good air movement, clear to auscultation bilaterally with no wheeze or rhonchi Abdomen soft, tender in the left lower quadrant, rebound noted though intervally improved. Bowel sounds active No peripheral edema. Heart rate regular Neurologically intact. Assessment and Plan (1) Abdominal abscess Current visit: Yes Status: Acute Category: Medical (2) Diverticula of colon Current visit: Yes Status: Acute Category: Medical Code(s): K57.30 - Diverticulosis of large intestine without perforation or abscess without bleeding (3) Incisional hernia Current visit: Yes Status: Acute Qualifiers: Obstruction and gangrene presence: without obstruction or gangrene Qualified Code(s): K43.2 - Incisional hernia without obstruction or gangrene; K43.91 - Incisional hernia, without obstruction or gangrene Category: Medical Code(s): K43.2 - Incisional hernia without obstruction or gangrene (4) Pulmonary fibrosis Current visit: No Status: Chronic Category: Medical Code(s): J84.10 - Pulmonary fibrosis, unspecified - Assessment and plan all Dx Assessment and Plan for all problems:: Status post drainage percutaneously of intra-abdominal abscess. Continue Invanz antibiotics at this time. Will attempt PICC line placement today. If able to place pick, transition to outpatient setting tomorrow with continuation of IV antibiotics for 14 days total. If unable, will continue IV antibiotics for 2 days and then transition to oral for 10 days of oral therapy. Gradually advance diet, full liquid diet today.
[2019-03-22 06:29] LABS: Basophils % 0.2 % (0.1-2.0); Eosinophils # 0.6 K/mm3 (0.0-0.4); Eosinophils % 8.9 % (0.1-12.0); Hematocrit 32.4 % (37.0-47.0); Hemoglobin 10.1 g/dL (12.2-16.2); Lymphocytes # 1.2 K/mm3 (0.7-4.5); Lymphocytes % 18.8 % (10-50); Mean Corpuscular HGB Conc 31.3 g/dL (31.8-35.4); Mean Corpuscular Volume 93.1 fl (81-99); Mean Platelet Volume 8.1 fl (7.4-10.4); Monocytes # 0.7 K/mm3 (0.1-1.0); Monocytes % 11.5 % (1.7-9.3); Neutrophils # 3.8 K/mm3 (1.8-7.8); Neutrophils % 60.6 % (37.0-80.0); Platelet Count 284 K/mm3 (142-424); Red Blood Count 3.48 M/mm3 (4.20-5.40); Red Cell Distribution Width 13.7 % (11.5-17.5); White Blood Count 6.2 K/mm3 (4.8-10.8)
[2019-03-22 06:39] LABS: Calcium 8.4 mg/dL (8.5-10.1)
--- NOTE | 2019-03-22 08:09 | Progress Note ---
Subjective Patient reports: feels better, still having pain (She describes her pain as "more of a soreness".) Exam Vital signs and Labs for Last 24 Hours: Temp Pulse Resp BP Pulse Ox 98.3 F 72 17 127/58 L 99 03/22/19 04:00 03/22/19 04:00 03/22/19 04:00 03/22/19 04:00 03/22/19 04:00 Laboratory Results - last 24 hr 03/22/19 05:30: WBC 6.2, RBC 3.48 L, Hgb 10.1 L, Hct 32.4 L, MCV 93.1, MCH 29.1, MCHC 31.3 L, RDW 13.7, Plt Count 284, MPV 8.1, Neut % (Auto) 60.6, Lymph % (Auto) 18.8, [place] % (Auto) 11.5 H, Eos % (Auto) 8.9, Baso % (Auto) 0.2, Neut # (Auto) 3.8, Lymph # (Auto) 1.2, [place] # (Auto) 0.7, Eos # (Auto) 0.6 H, Baso # (Auto) 0.0 03/22/19 05:30: Sodium 139, Potassium 4.0, Chloride 104, Carbon Dioxide 31, Anion Gap 8.0, BUN 10, Creatinine 0.62, Estimated Creat Clear 55, Estimated GFR 93, Est GFR ( Amer) 112, Glucose 82, Calcium 8.4 L I & O for Last 24 hours: Intake & Output 03/19/19 03/20/19 03/21/19 03/22/19 11:59 11:59 11:59 11:59 Intake Total 530 / 530 840 / 840 740 / 740 Balance 530 / 530 840 / 840 740 / 740 Weight 167 lb 3 oz 171 lb 3 oz 168 lb 4 oz Microbiology Reports for the Last 24 Hours: Microbiology 03/20/19 14:05 Abdomen Gram Stain - Final 03/20/19 14:05 Abdomen Wound Culture - Preliminary 03/19/19 18:00 Urine,Clean Catch Urine Culture - Final Multiple organisms, suggests contamination. - Constitutional no acute distress - *Routine Respiratory Exam Absent: respiratory distress - *Routine Cardiovascular Exam Present: RRR - *Routine Abdominal Exam Comments: Tenderness around abscess drainage site slightly improved versus yesterday. No spreading cellulitis. Progress Note: A&P (1) Abdominal abscess Status: Acute Current Visit: Yes (2) Diverticula of colon Status: Acute Current Visit: Yes (3) Incisional hernia Status: Acute Current Visit: Yes (4) Pulmonary fibrosis Status: Chronic Current Visit: No (5) Diverticulitis of large intestine with abscess Status: Acute Assessment and plan: Overall, doing well status post aspiration of abscess and implementation of antibiotic coverage. Continue antibiotics via PICC Close outpatient follow-up The patient understands the complicated nature of her diverticulitis. She understands the risks and benefits of elective resection, as well as, her increased risk secondary to her comorbid condition of pulmonary fibrosis. She states that if she "needs emergency surgery that is okay". Otherwise, she wishes to "avoid surgery because of the lungs". Current Visit: Yes
--- NOTE | 2019-03-22 08:20 | Discharge Summary ---
General - General Admission date:: 03/19/19 Discharge date: 03/22/19 HPI HPI: Patient complains of lower abdominal pain. She says "I have been fighting this for a month or 2". States she has had pain off and on, especially when she coughs. However over the past week to 2 it is gotten worse and she said it is constant about 90% of the time. No diarrhea or constipation. Last bowel movement today at noon. Denies urinary symptoms. Denies fever. Also complains of lightheadedness a few times when she stands up. She was seen in our office on Wednesday 4 days ago her blood work blood work and urine was done and revealed evidence of a urinary tract infection and she was placed on antibiotics, but she has not gotten better. Patient states "I do not think it is that". She said Lorena told her she did not improve to come to the emergency department or see her again this coming . Patient says she felt worse today and therefore came to the emergency room. She says in the past she has been told that she has a touch of diverticulitis. Last colonoscopy about 4 to 5 years ago. States only prior abdominal surgery is a hysterectomy. Hospital Course Hospital Course: Patient was admitted, radiology and surgery were consulted because of the evidence of the abscess from diverticulitis. Radiology was able to drain a small amount of the abscess fluid through CT-guided biopsy and this did well. Gram stain showed gram-positive villi, but no definitive culture results are available at this time. Patient was placed on Invanz at the time of admission and is tolerated this well. PICC line was placed yesterday in the left arm, patient is also tolerated this well. Patient is improved, white blood cell counts have normalized, patient has had no fever and she is been able to eat well. Patient will be sent home today with intravenous Invanz for the next 10 days. She will get this through home health services. We will see her in our office is in the next 5 days. She is instructed to follow-up sooner if fevers, abdominal swelling or vomiting occurs. Please note that I examined patient [id number] today, I determined that she needs home health services because of [place] [facility] need. She has difficulty leaving her home because of her IV access site. Objective Vital signs: Temp Pulse Resp BP Pulse Ox 98.3 F 72 17 127/58 L 99 03/22/19 04:00 03/22/19 04:00 03/22/19 04:00 03/22/19 04:00 03/22/19 04:00 Narrative: Patient is alert. Pleasant. Oriented x3. ENT exam clear. Heart rate regular. Lungs clear in the anterior and posterior peoples. Abdomen is soft, slightly tender around the CT needle biopsy site. No swelling noted. Extremities without clubbing, no cyanosis. Neurologic exam intact. Results Labs on day of discharge: Labs from last 24 hours 03/22/19 03/22/19 05:30 05:30 WBC 6.2 RBC 3.48 L Hgb 10.1 L Hct 32.4 L MCV 93.1 MCH 29.1 MCHC 31.3 L RDW 13.7 Plt Count 284 MPV 8.1 Neut % (Auto) 60.6 Lymph % (Auto) 18.8 [place] % (Auto) 11.5 H Eos % (Auto) 8.9 Baso % (Auto) 0.2 Neut # (Auto) 3.8 Lymph # (Auto) 1.2 [place] # (Auto) 0.7 Eos # (Auto) 0.6 H Baso # (Auto) 0.0 Sodium 139 Potassium 4.0 Chloride 104 Carbon Dioxide 31 Anion Gap 8.0 BUN 10 Creatinine 0.62 Estimated Creat Clear 55 Estimated GFR 93 Est GFR ( Amer) 112 Glucose 82 Calcium 8.4 L Preliminary micro results at discharge 03/20/19 14:05 Wound Culture - Preliminary Abdomen DS: Diagnosis - Discharge Diagnosis (1) Abdominal abscess Status: Acute (2) Diverticula of colon Status: Acute (3) Incisional hernia Status: Acute (4) Pulmonary fibrosis Status: Chronic (5) Diverticulitis of large intestine with abscess Status: Acute Discharge Plan - Patient Discharge Instructions ACTIVITY: Limited activity DIET: continue same diet Patient Instructions: Low-Fiber/Low-Residue Diet, DI for Abdominal Paracentesis, Abdominal Paracentesis, Peripherally Inserted Central Catheter, DI for Surgical Site Infection, Peripherally Inserted Central Catheter Infections, DI for Diverticulosis, DI for Intra-Abdominal Abscess - Follow up Plan Follow up with: Benji Flores MD [Staff Physician] - 1 week Manny Ross MD [Staff Physician] - 03/27/19 Disposition: Home Health Service Home Medications: Home Medications Medication Instructions Recorded Confirmed Type Aspirin 81 mg PO DAILY 03/23/18 03/20/19 History Famotidine [Acid Controller] 20 mg PO BID 03/23/18 03/20/19 History Fluticasone/Vilanterol [Breo 1 puff INHALATION DAILY 03/23/18 03/20/19 History Ellipta 200-25 Mcg INH] Levothyroxine Sodium 75 mcg PO DAILY 03/23/18 03/20/19 History [Levothyroxine 75mcg (0.075mg) Tab] Alendronate Sodium 35 mg PO WEEKLY 03/19/19 03/20/19 History Losartan Potassium [Cozaar 50mg 50 mg PO DAILY 03/19/19 03/20/19 History Tablets] Rosuvastatin Calcium [Crestor 10mg 10 mg PO DAILY 03/19/19 03/20/19 History Tablets] Albuterol Sulfate [Albuterol HFA 1 puff IH QID 03/20/19 03/20/19 History Inhaler] Nitrofurantoin Monohyd/M-Cryst 100 mg PO BID 03/20/19 03/20/19 History [Nitrofurantoin [place]-Mcr 100 mg] Ertapenem Sodium [Invanz 1gm Vial] 1 gm IV DAILY #7 vial 03/22/19 Rx Prescriptions/Medication Reconciliation: New Ertapenem Sodium [Invanz 1gm Vial] 1 gm IV DAILY #7 vial Continued Fluticasone/Vilanterol [Breo Ellipta 200-25 Mcg INH] 1 puff INHALATION DAILY Famotidine [Acid Controller] 20 mg PO BID Aspirin 81 mg PO DAILY Levothyroxine Sodium [Levothyroxine 75mcg (0.075mg) Tab] 75 mcg PO DAILY Losartan Potassium [Cozaar 50mg Tablets] 50 mg PO DAILY Rosuvastatin Calcium [Crestor 10mg Tablets] 10 mg PO DAILY Alendronate Sodium 35 mg PO WEEKLY Albuterol Sulfate [Albuterol HFA Inhaler] 1 puff IH QID Discontinued Nitrofurantoin Monohyd/M-Cryst [Nitrofurantoin [place]-Mcr 100 mg] 100 mg PO BID - Problem Reconciliation Problems Reviewed?: Yes
== END 2019-03-22 16:18 | disposition home health service (06) | DRG 392 ==
LOC: ER 17:45 → 2ND 21:13
PROVIDERS: ADMIT Internal Medicine Adolescent Medicine; ATTEND Internal Medicine Adolescent Medicine
CPT/HCPCS: 36415; 36569; 71010; 71045; 74177; 75989; 80048; 81001; 82150; 83690; 84484; 85025; 87070; 87075; 87077; 87086; 87186; 87205; 93005; 96365; 96375; 99285; C1751; J1335; J2405; Q9967

== ENCOUNTER → 2019-03-29 13:52 | Outpatient (CLI) | payer MEDICARE, SELFPAY ==
[2019-03-29 14:29] LABS: Basophils # 0.1 K/mm3 (0-0.2); Basophils % 0.6 % (0.1-2.0); Eosinophils # 0.6 K/mm3 (0.0-0.4); Hematocrit 37.2 % (37.0-47.0); Hemoglobin 11.5 g/dL (12.2-16.2); Lymphocytes # 1.7 K/mm3 (0.7-4.5); Lymphocytes % 13.4 % (10-50); Mean Corpuscular HGB Conc 30.8 g/dL (31.8-35.4); Mean Corpuscular Hemoglobin 28.7 pg (27.0-31.2); Mean Corpuscular Volume 93.2 fl (81-99); Mean Platelet Volume 8.2 fl (7.4-10.4); Monocytes # 0.8 K/mm3 (0.1-1.0); Monocytes % 6.6 % (1.7-9.3); Neutrophils # 9.2 K/mm3 (1.8-7.8); Neutrophils % 74.5 % (37.0-80.0); Platelet Count 390 K/mm3 (142-424); Red Blood Count 3.99 M/mm3 (4.20-5.40); Red Cell Distribution Width 13.6 % (11.5-17.5); White Blood Count 12.4 K/mm3 (4.8-10.8)
[2019-03-29 15:12] LABS: Blood Urea Nitrogen 16 mg/dL (7-18); Estimated Glomerular Filt Rate 96 ml/min (>60); GFR (African American) 117 ML/MIN (>60)
== END ==
PROVIDERS: Visit Provider Surgery
DX: K57.20 Diverticulitis of large intestine with perforation and abscess without bleeding (principal)
CPT/HCPCS: 36415; 82565; 84520; 85025

== ENCOUNTER 2019-03-30 08:14 | Observation (INO) ==
[2019-03-30 11:07] LABS: Basophils # 0.1 K/mm3 (0-0.2); Eosinophils # 0.7 K/mm3 (0.0-0.4); Lymphocytes # 1.4 K/mm3 (0.7-4.5); Monocytes # 0.7 K/mm3 (0.1-1.0); Monocytes % 6.3 % (1.7-9.3); Neutrophils # 7.8 K/mm3 (1.8-7.8)
[2019-03-30 11:13] LABS: Activated Partial Thrombo Time 30.7 seconds (23.6-34.0); INR 1.04 (0.9-1.1); Prothrombin Time 10.8 seconds (9.4-11.8)
[2019-03-30 11:15] LABS: Anion Gap 12.7 mEq/L (5-15); Calcium 8.6 mg/dL (8.5-10.1)
[2019-03-30 11:19] LABS: Basophils % 0.6 % (0.1-2.0); Eosinophils % 6.4 % (0.1-12.0); Lymphocytes % 13.2 % (10-50); Mean Corpuscular HGB Conc 31.3 g/dL (31.8-35.4); Mean Corpuscular Volume 92.5 fl (81-99); Mean Platelet Volume 11.6 fl (7.4-10.4); Neutrophils % 73.4 % (37.0-80.0); Platelet Count 334 K/mm3 (142-424); Red Blood Count 3.57 M/mm3 (4.20-5.40); Red Cell Distribution Width 13.9 % (11.5-17.5); White Blood Count 10.7 K/mm3 (4.8-10.8)
[2019-03-30 11:24] LABS: Hemoglobin 10.3 g/dL (12.2-16.2)
--- NOTE | 2019-03-30 14:14 | History & Physical Report ---
*Admission Date: 03/30/19 *Chief complaint: Status post drain placement for abdominal wall abscess/diverticulitis *History of present illness: This is a 78-year-old female with a recent diagnosis of diverticulitis with associated complex abscess that was aspirated during a recent hospitalization. She was seen in follow-up yesterday and an enlarging palpable component was appreciable. She was scheduled for repeat CT scan with likely drainage. This procedure was performed earlier today and the drainage catheter was secured in position. She is being admitted for observation/drain care teaching/initial drain management. [facility] History Medical History: Reports:: Chronic Obstructive Pulmonary Disease (COPD), Hyperlipidemia, Hypertension, Lung Disease Denies:: Cancer, Diabetes Mellitus Type 1, Diabetes Mellitus Type 2, MRSA *Have you ever received a pneumonia vaccine?: No *Have you received a flu vaccine this season?: No Other Medical History: Reports: Arthritis, Hypothyroidism Laterality Cases: Bilateral: Tonsillectomy Other Surgeries: Yes: Hysterectomy-Total, Other Amputation: No Fractures: No - *Social History Smoking Status: Former smoker Tobacco Type: cigarettes # Packs/Day (cigarettes): 1 #Yrs smoked (if former smoker): 35 Alcohol Intake: never Alcohol Intake Frequency:: holidays/special occasions only *Occupational Status:: retired Housing: house Household Members: none *Travel in the last 8 weeks: None Family Hx:: Cancer, Stroke Review of Systems - Constitutional Denies chills - Eyes Denies change in vision - ENT Denies difficulty swallowing - *Cardiovascular Denies chest pain - *Respiratory Reports shortness of breath with activity, Denies cough - *Gastrointestinal Reports abdominal pain Comments: Focal pain at abscess site - *Genitourinary Denies abnormal vaginal bleeding - *Musculoskeletal Denies deformity - Integumentary/Breasts Denies changing lesions - *Neurologic Denies confusion - Psychiatric Denies anxiety - Endocrine Denies excessive sweating - Hematologic/Lymphatic Denies easy bleeding - Allergic/Immunologic Denies throat swelling Meds Home Medications Medication Instructions Recorded Confirmed Type Aspirin 81 mg PO DAILY 03/23/18 03/30/19 History Famotidine [Acid Controller] 20 mg PO BID 03/23/18 03/30/19 History Fluticasone/Vilanterol [Breo 1 puff INHALATION DAILY 03/23/18 03/30/19 History Ellipta 200-25 Mcg INH] Levothyroxine Sodium 75 mcg PO DAILY 03/23/18 03/30/19 History [Levothyroxine 75mcg (0.075mg) Tab] Alendronate Sodium 35 mg PO WEEKLY 03/19/19 03/30/19 History Losartan Potassium [Cozaar 50mg 50 mg PO DAILY 03/19/19 03/30/19 History Tablets] Rosuvastatin Calcium [Crestor 10mg 10 mg PO DAILY 03/19/19 03/30/19 History Tablets] Albuterol Sulfate [Albuterol HFA 1 puff IH QID 03/20/19 03/30/19 History Inhaler] Ertapenem Sodium [Invanz 1gm Vial] 1 gm IV DAILY 03/30/19 03/30/19 History Allergies Allergy/AdvReac Type Severity Reaction Status Date / Time levofloxacin [From LEVUIN] Allergy Mild Verified 03/29/19 13:23 vancomycin Allergy Verified 03/29/19 13:23 Exam Vital signs and Labs for Last 24 Hours: Laboratory Results - last 24 hr 03/30/19 10:55: WBC 10.7, RBC 3.57 L, Hgb 10.3 L D, Hct 33.0 L, MCV 92.5, MCH 29.0, MCHC 31.3 L, RDW 13.9, Plt Count 334, MPV 11.6 H, Neut % (Auto) 73.4, Lymph % (Auto) 13.2, [place] % (Auto) 6.3, Eos % (Auto) 6.4, Baso % (Auto) 0.6, Neut # (Auto) 7.8, Lymph # (Auto) 1.4, [place] # (Auto) 0.7, Eos # (Auto) 0.7 H, Baso # (Auto) 0.1 03/30/19 10:55: PT 10.8, INR 1.04, APTT 30.7 03/30/19 10:55: Sodium 141, Potassium 3.7, Chloride 104, Carbon Dioxide 28, Anion Gap 12.7, BUN 11 D, Creatinine 0.62, Estimated Creat Clear 53, Estimated GFR 93, Est GFR ( Amer) 112, Glucose 93, Calcium 8.6 I & O for Last 24 hours: Intake & Output 03/28/19 03/29/19 03/30/19 03/31/19 11:59 11:59 11:59 11:59 Weight 161 lb 1.6 oz - Constitutional no acute distress - *Routine HEENT Exam Head: Present: normocephalic - *Routine Neck Exam Present: full ROM - Routine Chest/Breast/Axilla Exam Chest wall: Absent: tenderness - *Routine Respiratory Exam Absent: respiratory distress - *Routine Cardiovascular Exam Present: RRR - *Routine Abdominal Exam Present: soft, drain - *Routine Extremities Exam Absent: cyanosis, clubbing, edema - Routine Back/Spine/Pelvis Exam Back/Spine: Present: full ROM - *Routine Skin Exam Present: intact - *Routine Neurological Exam Present: alert - Routine Psychiatric Exam Present: normal affect Assessment and Plan (1) Abdominal abscess Current visit: No Status: Acute Category: Medical Overall, doing well status post placement of drain. Observation admission for postprocedural care, drain management, and drain teaching. (2) Diverticulitis of large intestine with abscess Current visit: No Status: Acute Qualifiers: Diverticulitis bleeding: without bleeding Qualified Code(s): K57.20 - Diverticulitis of large intestine with perforation and abscess without bleeding Category: Medical Code(s): K57.20 - Diverticulitis of large intestine with perforation and abscess without bleeding
--- NOTE | 2019-03-30 14:46 | Pharmacy Consult Notes ---
[facility] Pharmacy VTE Monitoring - Patient Demographics Admission date: 03/30/19 Report Date: 03/30/19 Time: 14:45 Allergies/Adverse Reactions: Patient Allergies levofloxacin [From LEVAQUIN] Allergy (Mild, Verified 03/29/19 13:23) vancomycin Allergy (Verified 03/29/19 13:23) Height: 1.68 m Weight: 76.43 kg - VTE Risk Labs: VTE Related Lab Results Hgb 10.3 g/dL (12.2-16.2) L D 03/30/19 10:55 Hct 33.0 % (37.0-47.0) L 03/30/19 10:55 Plt Count 334 K/mm3 (142-424) 03/30/19 10:55 PT 10.8 seconds (9.4-11.8) 03/30/19 10:55 INR 1.04 (0.9-1.1) 03/30/19 10:55 APTT 30.7 seconds (23.6-34.0) 03/30/19 10:55 BUN 11 mg/dL (7-18) D 03/30/19 10:55 Creatinine 0.62 mg/dL (0.55-1.02) 03/30/19 10:55 Estimated Creat Clear 53 mL/min (50-200) 03/30/19 10:55 Clinical Trial Participant: No - Prophylaxis VTE Prophylaxis Ordered?: Yes Types of VTE Prophylaxis: TEDS Knee High
[2019-03-30 17:12] LABS: Basophils % 0.1 % (0.1-2.0); Eosinophils # 0.4 K/mm3 (0.0-0.4); Eosinophils % 3.2 % (0.1-12.0); Hematocrit 37.4 % (37.0-47.0); Lymphocytes # 0.7 K/mm3 (0.7-4.5); Lymphocytes % 5.4 % (10-50); Mean Corpuscular HGB Conc 30.9 g/dL (31.8-35.4); Mean Platelet Volume 7.9 fl (7.4-10.4); Monocytes # 0.2 K/mm3 (0.1-1.0); Monocytes % 1.3 % (1.7-9.3); Neutrophils # 11.3 K/mm3 (1.8-7.8); Platelet Count 371 K/mm3 (142-424); Red Blood Count 4.02 M/mm3 (4.20-5.40); Red Cell Distribution Width 13.6 % (11.5-17.5); White Blood Count 12.5 K/mm3 (4.8-10.8)
[2019-03-30 17:19] LABS: Hemoglobin 11.6 g/dL (12.2-16.2)
[2019-03-30 17:28] LABS: Calcium 8.7 mg/dL (8.5-10.1)
[2019-03-30 17:43] LABS: Eosinophils % 1 % (0-3); Lymphocytes % 7 % (10-50); Monocytes % 2 % (2-9); Neutrophils % 90 % (42-76); RBC Morphology Normal; Total Cells Counted 100
--- NOTE | 2019-03-30 18:08 | Progress Note ---
Subjective Narrative: Called to bedside secondary to nursing concerns for possible allergic reaction to Invanz dosing. The patient became somewhat tachycardic and somewhat tachypneic after her most recent dose of Invanz was completed. Of note, she has been on Invanz as an outpatient for over a week without any significant complication. She did undergo CT-guided drainage of abscess earlier today without significant complication. Currently she states that she "feels shaky". She does have some abdominal pain at her abscess drainage site but states that it is "about the same as before". She does not have severe abdominal pain elsewhere. Exam Vital signs and Labs for Last 24 Hours: Temp Pulse Resp BP Pulse Ox 97.8 F 99 H 18 124/65 90 L 03/30/19 14:15 03/30/19 14:15 03/30/19 14:15 03/30/19 14:15 03/30/19 14:15 Laboratory Results - last 24 hr 03/30/19 10:55: WBC 10.7, RBC 3.57 L, Hgb 10.3 L D, Hct 33.0 L, MCV 92.5, MCH 29.0, MCHC 31.3 L, RDW 13.9, Plt Count 334, MPV 11.6 H, Neut % (Auto) 73.4, Lymph % (Auto) 13.2, [place] % (Auto) 6.3, Eos % (Auto) 6.4, Baso % (Auto) 0.6, Neut # (Auto) 7.8, Lymph # (Auto) 1.4, [place] # (Auto) 0.7, Eos # (Auto) 0.7 H, Baso # (Auto) 0.1 03/30/19 10:55: PT 10.8, INR 1.04, APTT 30.7 03/30/19 10:55: Sodium 141, Potassium 3.7, Chloride 104, Carbon Dioxide 28, Anion Gap 12.7, BUN 11 D, Creatinine 0.62, Estimated Creat Clear 53, Estimated GFR 93, Est GFR ( Amer) 112, Glucose 93, Calcium 8.6 03/30/19 17:05: WBC 12.5 H, RBC 4.02 L, Hgb 11.6 L D, Hct 37.4, MCV 93.0, MCH 28.8, MCHC 30.9 L, RDW 13.6, Plt Count 371, MPV 7.9, Neut % (Auto) 90.0 H, Lymph % (Auto) 5.4 L, [place] % (Auto) 1.3 L, Eos % (Auto) 3.2, Baso % (Auto) 0.1, Neut # (Auto) 11.3 H, Lymph # (Auto) 0.7, [place] # (Auto) 0.2, Eos # (Auto) 0.4, Baso # (Auto) 0.0, Total Counted 100, Neutrophils % (Manual) 90 H, Lymphocytes % (Manual) 7 L, Monocytes % (Manual) 2, Eosinophils % (Manual) 1, Platelet Estimate Normal, RBC Morphology Normal 03/30/19 17:05: Sodium 142, Potassium 4.0, Chloride 104, Carbon Dioxide 27, Anion Gap 15.0, BUN 11, Creatinine 0.78 D, Estimated Creat Clear 55, Estimated GFR 71, Est GFR ( Amer) 86 D, Glucose 137 H D, Calcium 8.7 I & O for Last 24 hours: Intake & Output 03/28/19 03/29/19 03/30/19 03/31/19 11:59 11:59 11:59 11:59 Intake Total 120 / 120 Balance 120 / 120 Weight 161 lb 1.6 oz 168 lb 8 oz - Constitutional cooperative - *Routine Respiratory Exam Absent: respiratory distress Comments: Mildly tachypneic but not in distress. - *Routine Cardiovascular Exam Present: tachycardia - *Routine Abdominal Exam Present: soft Comments: Dressing intact. No spreading cellulitis. She is tender over abscess drainage site but she does not have a rigid abdomen or other signs of peritonitis. Progress Note: A&P (1) Abdominal abscess Status: Acute Current Visit: No (2) Diverticulitis of large intestine with abscess Status: Acute Current Visit: No (3) Fever Status: Acute Assessment and plan: The patient has possibly had a reaction to her most recent dose of Invanz. There is also a possibility that she has had a systemic response to the procedure that was performed earlier today. Her primary care service (Dr. Ross) has been contacted and will evaluate the patient. She has received a dose of Benadryl. A single dose of prednisone and a single dose of Pepcid have been ordered. Currently Tylenol dosing is being held. Although it is very unlikely that the patient is septic she does fall within parameters of "septic evaluation". Therefore, the "sepsis protocol" has been implemented (to include blood cultures and an initial lactate level). Current Visit: Yes (4) Tachycardia Status: Acute Current Visit: Yes (5) Tachypnea Status: Acute Current Visit: Yes
--- NOTE | 2019-03-30 20:55 | Consult Report ---
*Admission Date: 03/30/19 *Reason for consult:: Concern for allergic reaction to antibiotic *History of present illness: Ms. Ball is a 78-year-old female with a recent admission for diverticulitis with associated complex abscess that was aspirated. She was seen today by Surgery for follow-up and there was concern fro development of an enlarging palpable component in her left lower abdomen. Surgery sent her to Radiology for a repeat CT scan, during which she has repeat drainage performed and the drainag e catheter was secured in place. The decision was made to admit her for observation overnight. [facility] During the infusion she developed what she describes as shaking, chills, and some mild SOA (in addition to her baseline pulmonary fibrosis). Surgery was concerned for an adverse drug reaction or allergy to the Invanz, which she has received daily since last admission ~1week ago. She denies any syncope, LOC, CP, [place], N/V/D, rash. Did develop a fever. Has been treated for allergic reaction. We were consulted by surgery to assist with medical management. Stable on my interview with no additional complaints. She appeared comfortable and in NAD on interview. No rashes or hives at home with medication administration daily. Of note, abscess cultures are positive for Morganella morganii sensitive to cefepime, ceftriaxone, fluoroquinolones, aztreonam. [facility] History I have reviewed the patient's past medical history: Yes Medical History: Reports:: Chronic Obstructive Pulmonary Disease (COPD), Hyperlipidemia, Hypertension, Lung Disease Denies:: Cancer, Diabetes Mellitus Type 1, Diabetes Mellitus Type 2, MRSA *Have you ever received a pneumonia vaccine?: Yes *Have you received a flu vaccine this season?: Yes Other Medical History: Reports: Arthritis, Hypothyroidism Laterality Cases: Bilateral: Tonsillectomy Other Surgeries: Yes: Hysterectomy-Total, Other Amputation: No Fractures: No - *Social History Smoking Status: Former smoker Tobacco Type: cigarettes # Packs/Day (cigarettes): 1 #Yrs smoked (if former smoker): 35 Alcohol Intake: never Alcohol Intake Frequency:: holidays/special occasions only *Occupational Status:: retired Housing: house Household Members: none *Travel in the last 8 weeks: None Family Hx:: Cancer, Stroke Review of Systems - Review of Systems Review of systems:: pertinent systems reviewed and negative unless documented below - *Neurologic Denies confusion Meds Home Medications Medication Instructions Recorded Confirmed Type Aspirin 81 mg PO DAILY 03/23/18 03/30/19 History Famotidine [Acid Controller] 20 mg PO BID 03/23/18 03/30/19 History Fluticasone/Vilanterol [Breo 1 puff INHALATION DAILY 03/23/18 03/30/19 History Ellipta 200-25 Mcg INH] Levothyroxine Sodium 75 mcg PO DAILY 03/23/18 03/30/19 History [Levothyroxine 75mcg (0.075mg) Tab] Alendronate Sodium 35 mg PO WEEKLY 03/19/19 03/30/19 History Losartan Potassium [Cozaar 50mg 50 mg PO DAILY 03/19/19 03/30/19 History Tablets] Rosuvastatin Calcium [Crestor 10mg 10 mg PO HS 03/19/19 03/30/19 History Tablets] Albuterol Sulfate [Albuterol HFA 1 puff IH Q4HP PRN 03/20/19 03/30/19 History Inhaler] Ertapenem Sodium [Invanz 1gm Vial] 1 gm IV DAILY 03/30/19 03/30/19 History Allergies Allergy/AdvReac Type Severity Reaction Status Date / Time levofloxacin [From [facility]] Allergy Mild Verified 03/29/19 13:23 vancomycin Allergy Verified 03/29/19 13:23 Exam Vital signs and Labs for Last 24 Hours: Temp Pulse Resp BP Pulse Ox 101.1 F H 100 H 20 106/67 L 97 03/30/19 19:41 03/30/19 19:41 03/30/19 19:41 03/30/19 19:41 03/30/19 19:41 Laboratory Results - last 24 hr 03/30/19 10:55: WBC 10.7, RBC 3.57 L, Hgb 10.3 L D, Hct 33.0 L, MCV 92.5, MCH 29.0, MCHC 31.3 L, RDW 13.9, Plt Count 334, MPV 11.6 H, Neut % (Auto) 73.4, Lymph % (Auto) 13.2, [place] % (Auto) 6.3, Eos % (Auto) 6.4, Baso % (Auto) 0.6, Neut # (Auto) 7.8, Lymph # (Auto) 1.4, [place] # (Auto) 0.7, Eos # (Auto) 0.7 H, Baso # (Auto) 0.1 03/30/19 10:55: PT 10.8, INR 1.04, APTT 30.7 03/30/19 10:55: Sodium 141, Potassium 3.7, Chloride 104, Carbon Dioxide 28, Anion Gap 12.7, BUN 11 D, Creatinine 0.62, Estimated Creat Clear 53, Estimated GFR 93, Est GFR ( Amer) 112, Glucose 93, Calcium 8.6 03/30/19 17:05: WBC 12.5 H, RBC 4.02 L, Hgb 11.6 L D, Hct 37.4, MCV 93.0, MCH 28.8, MCHC 30.9 L, RDW 13.6, Plt Count 371, MPV 7.9, Neut % (Auto) 90.0 H, Lymph % (Auto) 5.4 L, [place] % (Auto) 1.3 L, Eos % (Auto) 3.2, Baso % (Auto) 0.1, Neut # (Auto) 11.3 H, Lymph # (Auto) 0.7, [place] # (Auto) 0.2, Eos # (Auto) 0.4, Baso # (Auto) 0.0, Total Counted 100, Neutrophils % (Manual) 90 H, Lymphocytes % (Manual) 7 L, Monocytes % (Manual) 2, Eosinophils % (Manual) 1, Platelet Estimate Normal, RBC Morphology Normal 03/30/19 17:05: Sodium 142, Potassium 4.0, Chloride 104, Carbon Dioxide 27, Anion Gap 15.0, BUN 11, Creatinine 0.78 D, Estimated Creat Clear 55, Estimated GFR 71, Est GFR ( Amer) 86 D, Glucose 137 H D, Calcium 8.7 03/30/19 17:55: Lactate 1.7 I & O for Last 24 hours: Intake & Output 03/27/19 03/28/19 03/29/19 03/30/19 23:59 23:59 23:59 23:59 Intake Total 120 / 120 Balance 120 / 120 Weight 76.43 kg Narrative: Patient is alert. Pleasant. Oriented x3. Elderly ENT exam clear, nasal cannula in place. No swelling of tongue or lips Heart rate regular. Lungs clear in the anterior peoples, no wheeze Abdomen is soft, slightly tender around the drain site, intervally improved per her report from before the drain placement, SYBIL in place with bloody fluid in bag Extremities without clubbing, no cyanosis. Neurologic exam grossly intact No acute rash or hives on skin, warm and dry Internal Medicine - CN: Reslt - Labs CBC & Chem 7: 03/30/19 17:05 03/30/19 17:05 Labs: Short CBC 03/30/19 03/30/19 Range/Units 10:55 17:05 WBC 10.7 12.5 H (4.8-10.8) K/mm3 Hgb 10.3 L D 11.6 L D (12.2-16.2) g/dL Hct 33.0 L 37.4 (37.0-47.0) % Plt Count 334 371 (142-424) K/mm3 BMP 03/30/19 03/30/19 10:55 17:05 Sodium 141 142 Potassium 3.7 4.0 Chloride 104 104 Carbon Dioxide 28 27 BUN 11 D 11 Creatinine 0.62 0.78 D Glucose 93 137 H D Calcium 8.6 8.7 Assessment and Plan (1) Abdominal abscess Current visit: No Status: Acute Category: Medical (2) Diverticulitis of large intestine with abscess Current visit: No Status: Acute Qualifiers: Diverticulitis bleeding: without bleeding Qualified Code(s): K57.20 - Diverticulitis of large intestine with perforation and abscess without bleeding Category: Medical Code(s): K57.20 - Diverticulitis of large intestine with perforation and abscess without bleeding (3) Fever Current visit: Yes Status: Acute Category: Medical Code(s): R50.9 - Fever, unspecified (4) Tachycardia Current visit: Yes Status: Acute Category: Medical Code(s): R00.0 - Tachycardia, unspecified (5) Tachypnea Current visit: Yes Status: Acute Category: Medical Code(s): R06.82 - Tachypnea, not elsewhere classified - Assessment and plan all Dx Assessment and Plan for all problems:: 78-year-old female with complicated diverticulitis. Status post repeat drainage of abdominal abscess. Developed fever, tachycardia, rigors after administration of antibiotics. Differential diagnosis consists of allergic reaction to medic ation, cytokine storm. Given sensitivities, recommend transitioning to ceftriaxone for once daily dosing at home and to avoid potential allergy. Continue home medications for chronic conditions. Continue oxygen at baseline 2 L with goal greater than 92% saturation while awake, greater than 88% while asleep for patient's pulmonary fibrosis. Will monitor on telemetry overnight. Continue treatment for allergic reaction including antihistamines, fluids, steroids. Patient remains hemodynamically stable, anticipate discharge on new regimen to complete full course of antibiotic therapy.
[2019-03-31 06:41] LABS: Basophils % 0.1 % (0.1-2.0); Eosinophils # 0.1 K/mm3 (0.0-0.4); Eosinophils % 0.5 % (0.1-12.0); Hematocrit 32.4 % (37.0-47.0); Lymphocytes # 0.5 K/mm3 (0.7-4.5); Mean Corpuscular HGB Conc 31.5 g/dL (31.8-35.4); Mean Corpuscular Volume 90.3 fl (81-99); Mean Platelet Volume 8.4 fl (7.4-10.4); Monocytes # 0.2 K/mm3 (0.1-1.0); Neutrophils # 23.4 K/mm3 (1.8-7.8); Neutrophils % 96.5 % (37.0-80.0); Platelet Count 324 K/mm3 (142-424); Red Blood Count 3.59 M/mm3 (4.20-5.40); Red Cell Distribution Width 13.6 % (11.5-17.5); White Blood Count 24.3 K/mm3 (4.8-10.8)
--- NOTE | 2019-03-31 06:41 | Progress Note ---
Subjective Patient reports: feels better Narrative: She states that she is "back to normal now" Exam Vital signs and Labs for Last 24 Hours: Temp Pulse Resp BP Pulse Ox 97.7 F 57 L 16 107/63 L 97 03/31/19 04:00 03/31/19 04:00 03/31/19 04:00 03/31/19 04:00 03/31/19 04:00 Laboratory Results - last 24 hr 03/30/19 10:55: WBC 10.7, RBC 3.57 L, Hgb 10.3 L D, Hct 33.0 L, MCV 92.5, MCH 29.0, MCHC 31.3 L, RDW 13.9, Plt Count 334, MPV 11.6 H, Neut % (Auto) 73.4, Lymph % (Auto) 13.2, [place] % (Auto) 6.3, Eos % (Auto) 6.4, Baso % (Auto) 0.6, Neut # (Auto) 7.8, Lymph # (Auto) 1.4, [place] # (Auto) 0.7, Eos # (Auto) 0.7 H, Baso # (Auto) 0.1 03/30/19 10:55: PT 10.8, INR 1.04, APTT 30.7 03/30/19 10:55: Sodium 141, Potassium 3.7, Chloride 104, Carbon Dioxide 28, Anion Gap 12.7, BUN 11 D, Creatinine 0.62, Estimated Creat Clear 53, Estimated GFR 93, Est GFR ( Amer) 112, Glucose 93, Calcium 8.6 03/30/19 17:05: WBC 12.5 H, RBC 4.02 L, Hgb 11.6 L D, Hct 37.4, MCV 93.0, MCH 28.8, MCHC 30.9 L, RDW 13.6, Plt Count 371, MPV 7.9, Neut % (Auto) 90.0 H, Lymph % (Auto) 5.4 L, [place] % (Auto) 1.3 L, Eos % (Auto) 3.2, Baso % (Auto) 0.1, Neut # (Auto) 11.3 H, Lymph # (Auto) 0.7, [place] # (Auto) 0.2, Eos # (Auto) 0.4, Baso # (Auto) 0.0, Total Counted 100, Neutrophils % (Manual) 90 H, Lymphocytes % (Manual) 7 L, Monocytes % (Manual) 2, Eosinophils % (Manual) 1, Platelet Estimate Normal, RBC Morphology Normal 03/30/19 17:05: Sodium 142, Potassium 4.0, Chloride 104, Carbon Dioxide 27, Anion Gap 15.0, BUN 11, Creatinine 0.78 D, Estimated Creat Clear 55, Estimated GFR 71, Est GFR ( Amer) 86 D, Glucose 137 H D, Calcium 8.7 03/30/19 17:55: Lactate 1.7 I & O for Last 24 hours: Intake & Output 03/28/19 03/29/19 03/30/19 03/31/19 11:59 11:59 11:59 11:59 Intake Total 120 / 120 Output Total 0 / 0 Balance 120 / 120 Weight 161 lb 1.6 oz 171 lb 4 oz - Constitutional no acute distress - *Routine Respiratory Exam Absent: respiratory distress - *Routine Cardiovascular Exam Present: RRR - *Routine Abdominal Exam Present: soft Progress Note: A&P (1) Abdominal abscess Status: Acute Assessment and plan: (see below) Current Visit: No (2) Diverticulitis of large intestine with abscess Status: Acute Assessment and plan: Overall, doing well status post percutaneous drainage/drain placement. Likely discharge home later today on altered antibiotic regimen Current Visit: No (3) Fever Status: Resolved Current Visit: Yes (4) Tachycardia Status: Resolved Assessment and plan: The patient symptomatology that was likely either secondary to drug reaction (Invanz) or cytokine response to procedure has resolved. Current Visit: Yes (5) Tachypnea Status: Resolved Current Visit: Yes
[2019-03-31 06:50] LABS: Albumin Level 1.8 gm/dL (3.4-5.0); Albumin/Globulin Ratio 0.5 (1.1-1.8); Bilirubin,Total 0.5 mg/dL (0.2-1.0); Globulin 3.5 gm/dl (1.3-3.2); Total Protein,Serum 5.3 gm/dL (6.4-8.2)
[2019-03-31 07:55] LABS: Lymphocytes % 1 % (10-50); Monocytes % 1 % (2-9); Neutrophils % 98 % (42-76); Total Cells Counted 100
[2019-03-31 07:56] LABS: Stomatocytes 2+
[2019-03-31 09:30] LABS: Hemoglobin 10.2 g/dL (12.2-16.2)
--- OUTSIDE RECORDS SUMMARY | 2019-03-31 09:35 | External Medical Summary | Continuity of Care Document ---
:1940 Author Organization [facility] Address [address] [address] [place] [address] Phone Care Team Providers Name Role Phone Vignesh Attending Provider Jerel Primary Care Provider Rock Flores Attending Provider Sole Grimes Attending Provider Allergies, Adverse Reactions, Alerts Allergen Type Severity Reaction Last Verified Status Updated levofloxacin Allergy Mild Yes Active vancomycin Allergy Yes Active Medications Medication Status Dose Units Route Sig Qty Days Start End Instruct ions Date Date Aspirin Active 81 MG Oral Daily March 23, 2018 11:53am Famotidine Active 20 MG Oral Twice a March 11:53am Fluticasone/Vi Active 1 PUFF Daily March lan2017 11:53am Levothyroxine Active 75 MCG Oral Daily March 11:53am Alendronate Active 35 MG Oral Weekly March 9:08pm Losartan Active 50 MG Oral Daily March 9:08pm Rosuvastatin Active 10 MG Oral At March bedtime 2018 nightly 9:08pm Albuterol Active 1 PUFF INHALATION Every 22 March Sulfate hours 2018 as 9:30am needed Ertapenem Active 1 GM INTRAVEN Daily March 10:06am Problems Active Problems Medical Problem Onset Date Status Dizziness Active Pulmonary fibrosis Active Diverticula of colon Active Abdominal abscess Active Incisional hernia Active Knee pain, right Active Bronchiectasis Active Pneumonia Active Diverticulitis of large intestine Active with abscess Inactive/Resolved Problems Medical Problem Onset Date Status Fever Resolved Tachypnea Resolved Tachycardia Resolved Procedures Procedure Date Performed Status Urine Culture March 15, 2019 completed Relevant Diagnostic Tests and/or Laboratory Data Laboratory Results Test Date/Time Result Interpretation Reference Result Comment Performing Range Site White Blood December 6.1 K/mm3 4.8-10.8 [facility], [address] [place] [address] 36 E Count 2018 [place] [address] 9:05am White Blood February 12.6 K/mm3 4.8-10.8 [facility], [address] [place] [address] E Count 2018 [place] 56304 2:00pm White Blood March 12.4 K/mm3 4.8-10.8 [facility], [address] [place] [address] 36 E Count 2018 [place] ST[place] 80546 1:54pm Red Blood December 4.30 M/mm3 4.20-5.40 [facility], [address] [place] [address] E Count 2018 [place] ST[place]E 71524 9:05am Red Blood February 4.07 M/mm3 4.20-5.40 [facility], [address] [place] [address] 36 E Count 2018 [place] STEVE 00819 2:00pm Red Blood March 3.99 M/mm3 4.20-5.40 [facility], [address] [place] [address] 36 E Count 2018 [place] [address] 1:54pm Hemoglobin December 12.8 g/dL 12.2-16.2 [facility], [address] [place] [address] 36 E 2018 [place] [address] 9:05am Hemoglobin February 11.8 g/dL 12.2-16.2 [facility], [address] [place] [address] 36 E 2018 [place] [address] 2:00pm Hemoglobin March 11.5 g/dL 12.2-16.[address] 36 E 2018 [place] [address] 1:54pm Hematocrit December 40.3 % 37.0-47.[address] 36 E 2018 [place] [address] 9:05am Hematocrit February 37.5 % 37.0-47.0 [facility], [address] [place] [address] E 2018 [place] 04651 2:00pm Hematocrit March 37.2 % 37.0-47.0 [facility], [address] [place] [address] E 2018 [place] [address] 1:54pm Mean December 93.8 fl - [facility], [address] [place] [address] E Corpuscular 2018 Kellie [place] [address] Volume 9:05am Mean February 92.2 fl - [facility], [address] [place] [address] E Corpuscular 2018 Kellie [place] 28426 Volume 2:00pm Mean March 93.2 fl - [facility], [address] [place] [address] E Corpuscular 2018 Kellie [place] 27627 Volume 1:54pm Mean December 29.7 pg 27.0-31.2 [facility], [address] [place] [address] E Corpuscular 2018 Kellie [place] 54572 Hemoglobin 9:05am Mean February 28.9 pg 27.0-31.2 [facility], [address] [place] [address] E Corpuscular 2018 Kellie [place] 81578 Hemoglobin 2:00pm Mean March 28.7 pg 27.0-31.2 [facility], [address] [place] [address] E Corpuscular 2018 Kellie [place] 13289 Hemoglobin 1:54pm Mean December 31.7 g/dL 31.8-35.4 [facility], [address] [place] [address] E Corpuscular 2018 Kellie [place] 04651 Hemoglobin 9:05am Concent Mean February 31.4 g/dL 31.8-35.4 [facility], [address] [place] [address] E Corpuscular 2018 Kellie W[place] 66523 Hemoglobin 2:00pm Concent Mean March 30.8 g/dL 31.8-35.4 [facility], [address] [place] [address] E Corpuscular 2018 Kellie W[place] 05085 Hemoglobin 1:54pm Concent Red Cell December 13.2 % 11.5-17.5 [facility], [address] [place] [address] E Distribution 2018 Oumou [place] 24702 Width 9:05am Red Cell February 14.7 % 11.5-17.5 [facility], [address] [place] [address] E Distribution 2018 Oumou [place] 76767 Width 2:00pm Red Cell Fred 13.6 % 11.5-17.5 [facility], [address] [place] [address] E Distribution 2018 Oumou [place] 38685 Width 1:54pm Platelet December 277 K/mm3 142-424 [facility], [address] [place] [address] E Count 2018 Nga [place]SON 91797 9:05am Platelet February 348 K/mm3 142-424 [facility], [address] [place] [address] E Count 2018 [place] ST[place] 60[address] 2:00pm Platelet March 390 K/mm3 142-424 [facility], [address] [place] [address] E Count 2018 [place] ST[place] 96537 1:54pm Mean Platelet December 9.2 fl 7.4-10.4 [facility], [address] [place] [address] E Volume 2018 Nga [place] 38782 9:05am Mean Platelet February 8.2 fl 7.4-10.4 [facility], [address] [place] [address] E Volume 2018 [place] ST[place]E 86316 2:00pm Mean Platelet March 8.2 fl 7.4-10.4 [facility], [address] [place] [address] E Volume 2018 Nga [place] 74689 1:54pm Neutrophils December 56.7 % 37.0-80.0 [facility], [address] [place] [address] E (%) (Auto) 2018 Noah [place] 47462 9:05am Neutrophils November 77.0 % 37.0-80.0 [place] [address] E (%) (Auto) 2018 Noah [place] 02996 2:00pm Neutrophils Fred 74.5 % 37.0-80.0 [facility], [address] [place] [address] 36 E (%) (Auto) 2018 Cynbambi W[place] 62011 1:54pm Lymphocytes December 27.1 % [facility], [address] [place] [address] E (%) (Auto) 2018 [place]i [place] 29394 9:05am Lymphocytes February 13.6 % [facility], [address] [place] [address] E (%) (Auto) 2018 Cynbambi [place] 42583 2:00pm Lymphocytes March 13.4 % [facility], [address] [place] [address] E (%) (Auto) 2018 [place]ambi [place] 77481 1:54pm Monocytes (%) December 8.6 % 1.7-9.3 [facility], [address] [place] [address] E (Auto) 2018 [place] [address] 9:05am Monocytes (%) February 7.3 % 1.7-9.3 [facility], [address] [place] [address] E (Auto) 2018 [place] [address] 2:00pm Monocytes (%) March 6.6 % 1.7-9.3 [facility], [address] [place] [address] E (Auto) 2018 [place] [address] 1:54pm Eosinophils Brittani 7.0 % 0.1-12.0 [place] [address] E (%) (Auto) 2018 Cynbambi [place] 02241 9:05am Eosinophils November 1.8 % 0.1-12.0 [address] [place] [address] E (%) (Auto) 2018 Cynthian antonia W[place] 61047 2:00pm Eosinophils Fred 5.0 % 0.1-12.0 [address] [place] [address] E (%) (Auto) 2018 Cynthian antonia W[place] 35327 1:54pm Basophils (%) December 0.5 % 0.1-2.0 [facility], [address] [place] [address] E (Auto) 2018 [place] [address] 9:05am Basophils (%) February 0.4 % 0.1-2.[address] 36 E (Auto) 2018 N[place] 623[address] 2:00pm Basophils (%) March 0.6 % 0.1-2.0 [place] [facility], [address] [place] [address] E (Auto) 2018 [place] [address] 1:54pm Neutrophils # December 3.5 K/mm3 1.8-7.8 [place] [facility], [address] [place] [address] E (Auto) 2018 [place] [address] 9:05am Neutrophils # February 9.7 K/mm3 1.8-7.8 [place] [facility], [address] [place] [address] E (Auto) 2018 [place] [address] 2:00pm Neutrophils # March 9.2 K/mm3 1.8-7.8 [place] [facility], [address] [place] [address] E (Auto) 2018 [place] [address] 1:54pm Lymphocytes # December 1.7 K/mm3 0.7-4.5 [facility], [address] [place] [address] E (Auto) 2018 [place] [address] 9:05am Lymphocytes # February 1.7 K/mm3 0.7-4.5 [place] [facility], [address] [place] [address] E (Auto) 2018 [place] [address] 2:00pm Lymphocytes # March 1.7 K/mm3 0.7-4.5 [facility], [address] [place] [address] E (Auto) 2018 [place] [address] 1:54pm Monocytes # December 0.5 K/mm3 0.1-1.0 [facility], [address] [place] [address] E (Auto) 2018 [place] [address] 9:05am Monocytes # February 0.9 K/mm3 0.1-1.0 [facility], [address] [place] [address] E (Auto) 2018 [place] [address] 2:00pm Monocytes # March 0.8 K/mm3 0.1-1.0 [facility], [address] [place] [address] E (Auto) 2018 [place] [address] 1:54pm Eosinophils # December 0.4 K/mm3 0.0-0.4 [facility], [address] [place] [address] E (Auto) 2018 N[place] 01882 9:05am Eosinophils # November 0.2 K/mm3 0.0-0.4 [facility], [address] [place] [address] E (Auto) 2018 [place] 69882 2:00pm Eosinophils # Fred 0.6 K/mm3 0.0-0.4 [facility], [address] [place] [address] E (Auto) 2018 [place] 97382 1:54pm Basophils # Brittani 0.0 K/mm3 0-0.2 [facility], [address] [place] [address] E (Auto) 2018 [place] [address] 9:05am Basophils # November 0.1 K/mm3 0-0.2 [facility], [address] [place] [address] E (Auto) 2018 [place] 51621 2:00pm Basophils # Fred 0.1 K/mm3 0-0.2 [facility], [address] [place] [address] E (Auto) 2018 [place] 92813 1:54pm Urine Color November Yellow Yellow [facility], [address] [place] [address] E 2018 [place] [address]3927 3:06pm Urine November Sl cloudy Clear [facility], [address] [place] [address] E Appearance 2018 Noah [place] 95260 3:06pm Urine pH February 6.0 5.0-8.5 [facility], [address] [place] [address] E 2018 [place] 83719 3:06pm Urine November <= 1.005 1.005-1.03 [facility], [address] [place] [address] E Specific 2018 0 [place] [address] Alma 3:06pm Urine Protein November Trace Negative [facility], [address] [place] [address] E 2018 [place] 15119 3:06pm Urine Glucose November Negative Negative [facility], [address] [place] [address] E (UA) 2018 [place] 27996 3:06pm Urine Ketones November Negative Negative [facility], [address] [place] [address] E 2018 [place] 17865 3:06pm Urine Blood February 2+ Negative [facility], [address] [place] [address] 36 E 2018 [place] 24240 3:06pm Urine Nitrate November Negative Negative [facility], [address] [place] [address] 36 E 2018 [place] 71037 3:06pm Urine November Negative Negative [facility], [address] [place] [address] E Bilirubin 2018 [place] 24473 3:06pm Urine November 0.2 EU/dl [facility], [address] [place] [address] 36 E Urobilinogen 2018 Oumou martines ST[place] 73059 3:06pm Urine November 3+ Negative [facility], [address] [place] [address] 36 E Leukocyte 2018 [place] 02052 Esterase 3:06pm Urine WBC February Tntc #/hpf [facility], [address] [place] [address] 36 E 2018 [place] 28645 3:06pm Urine November Occasional [facility], [address] [place] [address] E Squamous 2018 #/hpf [place] 22711 Epithelial 3:06pm Cells Urine February Trace /lpf NONE [facility], [address] [place] [address] 36 E Bacteria 2018 [place] 11818 3:06pm Sodium Level December 143 mmol/L 136-145 [facility], [address] [place] [address] 36 E 2018 [place] 52828 9:05am Sodium Level November 138 mmol/L 136-145 [facility], [address] [place] [address] 36 E 2018 [place] 08843 2:00pm Potassium December 4.0 mmoL/L 3.5-5.1 [facility], [address] [place] [address] 36 E Level 2018 [place] 32944 9:05am Potassium February 3.4 mmoL/L 3.5-5.1 [facility], [address] [place] [address] 36 E Level 2018 N[place] 86029 2:00pm Chloride December 106 mmol/L 98-107 [facility], [address] [place] [address] 36 E Level 2018 [place] 69778 9:05am Chloride February 100 mmol/L 98-107 [facility], [address] [place] [address] 36 E Level 2018 N[place] 16161 2:00pm Carbon December 28 mmol/L 21.0-32.0 [facility], [address] [place] [address] 36 E Dioxide Level 2018 Lenny [place] 65547 9:05am Carbon February 27 mmol/L 21.0-32.0 [facility], [address] [place] [address] 36 E Dioxide Level 2018 Lenny [place] 42764 2:00pm Anion Gap December 13.0 mEq/L 08-31 [facility], [address] [place] [address] 36 E 2018 [place] 28058 9:05am Anion Gap February 14.4 mEq/L 08-31 [facility], [address] [place] [address] 36 E 2018 [place] 76492 2:00pm Blood Urea December 12 mg/dL 11-03 [facility], [address] [place] [address] E Nitrogen 2018 N[place] 73269 9:05am Blood Urea February 14 mg/dL 11-03 [facility], [address] [place] [address] E Nitrogen 2018 [place] 49718 2:00pm Blood Urea March 16 mg/dL 11-03 [facility], [address] [place] [address] 36 E Nitrogen 2018 [place] 80749 1:54pm Creatinine December 0.62 mg/dL 0.55-1.02 [facility], [address] [place] [address] 36 E 2018 [place] 32440 9:05am Creatinine February 0.87 mg/dL 0.55-1.02 [facility], [address] [place] [address] 36 E 2018 [place] 43666 2:00pm Creatinine March 0.60 mg/dL 0.55-1.02 [facility], [address] [place] [address] 36 E 2018 [place] [address] 1:54pm Estimated GFR December 112 ML/MIN >59 [facility], [address] [place] [address] 36 E ( 2018 [place] [address] Nepalese) 9:05am Estimated GFR February 76 ML/MIN >59 [facility], [address] [place] [address] 36 E ( 2018 [place] [address] Nepalese) 2:00pm Estimated GFR March 117 ML/MIN >59 [facility], [address] [place] [address] 36 E ( 2018 [place] [address] Nepalese) 1:54pm Estimat December 93 ml/min >59 [facility], [address] [place] [address] 36 E Glomerular 2018 [place] 645[address] Filtration 9:05am Rate Estimat February 63 ml/min >59 [facility], [address] [place] [address] 36 E Glomerular 2018 Noah [place] 28513 Filtration 2:00pm Rate Estimat March 96 ml/min >59 [facility], [address] [place] [address] 36 E Glomerular 2018 Noah [place] 44673 Filtration 1:54pm Rate Glucose Level December 84 mg/dL 74-106 [facility], [address] [place] [address] 36 E 2018 [place] 75414 9:05am Glucose Level February 100 mg/dL 74-106 [facility], [address] [place] [address] 36 E 2018 [place] 68801 2:00pm Calcium Level December 9.1 mg/dL 8.5-10.1 [facility], [address] [place] [address] 36 E 2018 [place] 30266 9:05am Calcium Level February 8.7 mg/dL 8.5-10.1 [facility], [address] [place] [address] 36 E 2018 [place] [address] 2:00pm Total December 0.8 mg/dL 0.2-1.0 [facility], [address] [place] [address] 36 E Bilirubin 2018 [place] 69018 9:05am Total February 0.8 mg/dL 0.2-1.0 [facility], [address] [place] [address] 36 E Bilirubin 2018 [place] 57568 2:00pm Aspartate December 15 U/L -37 [facility], [address] [place] [address] 36 E Amino Transf 2018 Oumou [place] 08363 (AST/SGOT) 9:05am Aspartate February 15 U/L [facility], [address] [place] [address] 36 E Amino Transf 2018 Oumou martines STEVE 23051 (AST/SGOT) 2:00pm Alanine December 11 U/L 12-78 [facility], [address] [place] [address] 36 E Aminotransfer 2018 Lenny [place] 05778 ase 9:05am (ALT/SGPT) Alanine February 8 U/L 12-78 [facility], [address] [place] [address] E Aminotransfer 2018 Lenny [place] 05658 ase 2:00pm (ALT/SGPT) Total Protein December 6.5 gm/dL 6.4-8.2 [facility], [address] [place] [address] E 2018 N[place] 26506 9:05am Total Protein February 7.1 gm/dL 6.4-8.2 [facility], [address] [place] [address] E 2018 Nga [place] 04749 2:00pm Albumin December 3.0 gm/dL 3.4-5.0 [facility], [address] [place] [address] E 2018 Nga [place] 01205 9:05am Albumin November 2.6 gm/dL 3.4-5.0 [facility], [address] [place] [address] E 2018 Nga [place] 51435 2:00pm Globulin December 3.5 gm/dl 1.3-3.2 [facility], [address] [place] [address] E 2018 [place] [address] 9:05am Globulin February 4.5 gm/dl 1.3-3.2 [facility], [address] [place] [address] E 2018 [place] 33336 2:00pm Albumin/Globu Brittani 0.9 1.1-1.8 [facility], [address] [place] [address] 36 E estrellita Ratio 2018 [place] 63213 9:05am Albumin/Globu November 0.6 1.1-1.8 [facility], [address] [place] [address] E estrellita Ratio 2018 Nga [place] 43614 2:00pm Triglycerides December 88 mg/dL 30-200 [facility], [address] [place] [address] E Level 2018 Nga [place] 58656 9:05am Cholesterol December 229 mg/dL 140-200 [facility], [address] [place] [address] E Level 2018 Nga [place] 61525 9:05am LDL December 151 mg/dL 0-130 [facility], [address] [place] [address] 36 E Cholesterol 2018 Kellie [place] 49805 9:05am VLDL December 18 mg/dL 0-40 [facility], [address] [place] [address] 36 E Cholesterol 2018 Kellie [place] 10597 9:05am HDL December 60 mg/dL 29-89 [facility], [address] [place] [address] 36 E Cholesterol 2018 Kellie [place] 76670 9:05am Cholesterol/H December 3.8 1-3.5 [facility], [address] [place] [address] 36 E DL Ratio 2018 Nga [place] 83670 9:05am Alkaline December 103 U/L 46-116 [facility], [address] [place] [address] E Phosphatase 2018 Kellie [place] 18021 9:05am Alkaline February 109 U/L 46-116 [facility], [address] [place] [address] E Phosphatase 2018 Kellie W[place] 15153 2:00pm Thyroid December 0.64 uIU/ml 0.358-3.74 Please note the H [facility], [address] [place] [address] 36 E Stimulating 2018 0 potential for Diamante [place] [address] Hormone (TSH) 9:05am biotin to falsely depress the TSH result when high levels of biotin surpassing the daily recommended dose are administered. 25-Hydroxy December 24.7 ng/mL Vitamin D [facility] Vitamin D 2018 deficiency has Acct # Total 9:05am been defined by [phone] the [place] [facility] and an Endocrine Society practice guideline as alevel of serum 25-OH vitamin D less than 20 ng/mL (1,2).The Endocrine Society went on to further define vitamin Dinsufficiency as a level between 21 and 29 ng/mL (2).1. IOM ([place] of Medicine). 2010. Dietary reference intakes for calcium and D. [place]: The National Academies Press.2. Angela HENRIQUEZ, Jeff OVALLE, Rula clarke HURTADO, et al. Evaluation, treatment, and prevention of vitamin D deficiency: an Endocrine Society clinical practice guideline. JCEM. 2010; 96(7):1911-30.P erformed at: [facility] [id number] [place], [place] [id number] Director: Justin Marquez PhD, Phone: [phone] Rejected Laboratory Tests Ordered Test Collection Cancelled Reject Reason Specimen Condi tion Date/Time Date/Time Urinalysis and March 15March 15, Quantity of Insuffici ent Microscopic 2018 2:00pm 2018 3:24pm specimen not Quantity sufficient for test/procedure ordered. Microbiology Results Procedure Source Result Collection Result Result Performin g Date/Time Date/Time Comment Site Urine Culture Urine,Smita Turnerella February [facility], [address] [place] [address] [facility] 2018 [place] [address] 3:06pm 6:11am Rejected Microbiology Procedures Ordered Source Collection Cancelled Reject Reason Specimen Procedure Date/Time Date/Time Condition Urine Culture Urine,Rando March 15March 15, Quantity of I nsufficient m 2018 2:00pm 2018 3:24pm specimen not Quantity sufficient for test/procedure ordered. Advance Directives Advance Directive Response Recorded Date/Time Living Will No March 30, 2019 2:00pm Living Will Yes March 19, 2019 1 1:22pm Chief Complaint and Reason for Visit Chief Complaint LAB WORK LAB WORK Diverticulitis with abscess I & D abdominal wall LAB WORK INC CTAB/P WIVO-ABDOMINAL AB SCESS L02.211/K46.9 Reason for Visit Abdominal abscess Diverticula of colon Diverticulitis of large inte pete with abscess Dizziness Incisional hernia Fever Tachycardia Tachypnea Encounters Encounter Location(s) Arrival/Admit Date Discharge/Depart Date Provider(s) Registered [facility] Physician January 05, [facility] 2018 9:01am ROSY Corea Location Registered [facility] Physician March 15, [facility] 2018 1:57pm [employer] Registered [facility] Physician March 19, 2019 Benji Flores , Inpatient Group-Surgical 11:00pm MD Suite Departed [facility] Physician March 29March 29, 2019 Benji Flores , Physician/Provi Group-Surgical 2018 1:14pm 1:35pm MD rhoda Office Suite Visit Registered [facility] Physician March 29, Benji Flores , Clinical Group-Laboratory 2018 1:52pm MD Registered [facility] Physician March 30, Benji Flores , Inpatient Group-Surgical 2018 1:13pm Suite Registered [facility] Physician March 31, Daniel [facility]- 2018 9:13am MD Sydney Recent Diagnosis Onset Date Abdominal abscess Diverticula of colon Diverticulitis of large intestine with abscess Dizziness Incisional hernia Fever Tachycardia Tachypnea Assessments Diagnosis Onset Date Resolution Status Abdominal abscess acute Diverticula of colon acute Diverticulitis of large acute intestine with abscess Dizziness acute Incisional hernia acute Fever resolved Tachycardia resolved Tachypnea resolved Functional Status Observation Response Date Recorded Functional status ambulatory March 29, 2019 1:35pm Goals Acute Goals Nursing Diagnosis: Knowledge Deficit D isease/Condition Goal(s): Education of di sease process Instruction(s): Follow provider p gu[place]ito/instructions (See attached discharge education) Follow/up with primary care provider as instructed in discharge packet Immunizations Immunization Event Date Not Given Dose Traffic [employer] Engineer Lot Vac cine Reason Number Number Informatio n Statement (VIS) Deta il Fluzone December High-Dose [id number] 2018 Pneumococcal February 04, Conjugate 2015 Vaccine, 13 valent Td, adsorbed June 20, 1996 Influenza, December unspecified 2016 formulation Mental Status No Mental Status Information Available Medical Equipment No Medical Equipment Information available Insurance Providers Guarantor Lissette Michael Power Address [address] [address] Contact Info. Home Phone: Payer Policy Id Coverage Id Subscriber's Subscriber Id Effective E xpiration Name Date Date [employer] [id number] April 19, Medicare 00 2013 Self Pay Self N/A Plan of Treatment Continue antibiotics Repeat CBC Repeat CT scan with possible aspiration if "drainable fluid pocket" noted Future Tests Future scheduled test information is unavailable Pending Tests Pending diagnostic test information is unavailable Future Visits Future appointment information is unavailable Referrals to Other Providers Reason for Referral Start Provider Provider Contact Provider Address Referral Date Information Admission to [facility] March 31 Jesu 2019 [facility] Benji Wilekrson Mark Work Phone: [phone] [address] Future Procedures Future procedure information is unavailable Future Medications Future medication information is unavailable Patient Instructions Low-Fiber/Low-Residue Diet DI for Abdominal Paracentesis Abdominal Paracentesis Peripherally Inserted Central Catheter DI for Surgical Site Infection Peripherally Inserted Central Catheter I nfections DI for Diverticulosis DI for Intra-Abdominal Abscess Inflammatory Bowel Disease Social History Observation Status Date of Observation Not March 19, 2019 Assigned Sex Female Vital Signs Vital Reading Result Reference Range Collection Date/ Time Height 157 cm March 22 5:00am Weight 76.31 kg March 22, 5:00am Body Temperature 97.7 [degF] 97.6-99.6 March 22, 2 019 12:00pm Heart Rate 88 /min 60-March 22, 12:00pm Respiratory rate 20 /min -March 22, 2 019 12:00pm Oxygen saturation by 97 % 95-100 March Pulse oximetry 12:00pm BP Systolic 130 mm[Hg] 110-140 March 22 12:00pm BP Diastolic 69 mm[Hg] 60-90 March 22 12:00pm BMI (Body Mass Index) 30.9 kg/m2 March 222018 5:00am Height 157.48 cm March 29, 2 019 1:21pm Weight 75.74 kg March 29, 2 019 1:21pm Heart Rate 96 /min 60-90 March 29, 2 019 1:21pm BP Systolic 97 mm[Hg] 110-140 March 29, 2 019 1:21pm BP Diastolic 69 mm[Hg] 60-90 March 29, 2 019 1:21pm BMI (Body Mass Index) 30.5 kg/m2 March 192018 1:21pm Height 167.64 cm March 31, 2 019 4:50am Weight 77.67 kg March 31, 2 019 4:50am Body Temperature 97.6 [degF] 97.6-99.6 March 31, 2019 8:00am Heart Rate 85 /min 60-90 March 31, 2 019 8:00am Respiratory rate 21 /min -March 31, 2019 8:00am Oxygen saturation by 90 % 95-100 March [id number] Pulse oximetry 8:00am BP Systolic 108 mm[Hg] 110-140 March 31, 2 019 8:00am BP Diastolic 54 mm[Hg] 60-90 March 31, 2 019 8:00am BMI (Body Mass Index) 27.6 kg/m2 March 192018 4:50am
--- NOTE | 2019-03-31 10:05 | Progress Note ---
Internal Medicine - PN: Subj *Date: 03/31/19 *Time: 08:45 Interval history: Ms. alvarez did better overnight. Fever has resolved. She remains normotensive and heart rate better controlled. Still has pain at site of insertion of drain however overall states she feels improved. Tolerating breakfast this morning. No chills, rash, nausea, vomiting, diarrhea, worsening of shortness of breath beyond baseline. Exam Vital signs and Labs for Last 24 Hours: Temp Pulse Resp BP Pulse Ox 97.6 F 85 21 108/54 L 90 L 03/31/19 08:00 03/31/19 08:00 03/31/19 08:00 03/31/19 08:00 03/31/19 08:00 Laboratory Results - last 24 hr 03/30/19 10:55: WBC 10.7, RBC 3.57 L, Hgb 10.3 L D, Hct 33.0 L, MCV 92.5, MCH 29.0, MCHC 31.3 L, RDW 13.9, Plt Count 334, MPV 11.6 H, Neut % (Auto) 73.4, Lymph % (Auto) 13.2, [place] % (Auto) 6.3, Eos % (Auto) 6.4, Baso % (Auto) 0.6, Neut # (Auto) 7.8, Lymph # (Auto) 1.4, [place] # (Auto) 0.7, Eos # (Auto) 0.7 H, Baso # (Auto) 0.1 03/30/19 10:55: PT 10.8, INR 1.04, APTT 30.7 03/30/19 10:55: Sodium 141, Potassium 3.7, Chloride 104, Carbon Dioxide 28, Anion Gap 12.7, BUN 11 D, Creatinine 0.62, Estimated Creat Clear 53, Estimated GFR 93, Est GFR ( Amer) 112, Glucose 93, Calcium 8.6 03/30/19 17:05: WBC 12.5 H, RBC 4.02 L, Hgb 11.6 L D, Hct 37.4, MCV 93.0, MCH 28.8, MCHC 30.9 L, RDW 13.6, Plt Count 371, MPV 7.9, Neut % (Auto) 90.0 H, Lymph % (Auto) 5.4 L, [place] % (Auto) 1.3 L, Eos % (Auto) 3.2, Baso % (Auto) 0.1, Neut # (Auto) 11.3 H, Lymph # (Auto) 0.7, [place] # (Auto) 0.2, Eos # (Auto) 0.4, Baso # (Auto) 0.0, Total Counted 100, Neutrophils % (Manual) 90 H, Lymphocytes % (Manual) 7 L, Monocytes % (Manual) 2, Eosinophils % (Manual) 1, Platelet Estimate Normal, RBC Morphology Normal 03/30/19 17:05: Sodium 142, Potassium 4.0, Chloride 104, Carbon Dioxide 27, Anion Gap 15.0, BUN 11, Creatinine 0.78 D, Estimated Creat Clear 55, Estimated GFR 71, Est GFR ( Amer) 86 D, Glucose 137 H D, Calcium 8.7 03/30/19 17:55: Lactate 1.7 03/31/19 05:47: WBC 24.3 H* D, RBC 3.59 L, Hgb 10.2 L D, Hct 32.4 L, MCV 90.3, MCH 28.5, MCHC 31.5 L, RDW 13.6, Plt Count 324, MPV 8.4, Neut % (Auto) 96.5 H, Lymph % (Auto) 2.0 L, [place] % (Auto) 1.0 L, Eos % (Auto) 0.5, Baso % (Auto) 0.1, Neut # (Auto) 23.4 H, Lymph # (Auto) 0.5 L, [place] # (Auto) 0.2, Eos # (Auto) 0.1, Baso # (Auto) 0.0, Total Counted 100, Neutrophils % (Manual) 98 H, Lymphocytes % (Manual) 1 L, Monocytes % (Manual) 1 L, Platelet Estimate Normal, Stomatocytes 2+ 03/31/19 05:47: Sodium 141, Potassium 4.0, Chloride 104, Carbon Dioxide 29, Anion Gap 12.0, BUN 12, Creatinine 0.69, Estimated Creat Clear 56, Estimated GFR 82, Est GFR ( Amer) 99, Glucose 119 H, Calcium 8.0 L, Magnesium 1.4, Total Bilirubin 0.5, AST 10 L, ALT 9 L, Alkaline Phosphatase 81, Total Protein 5.3 L D, Albumin 1.8 L, Globulin 3.5 H, Albumin/Globulin Ratio 0.5 L I & O for Last 24 hours: Intake & Output 03/28/19 03/29/19 03/30/19 03/31/19 23:59 23:59 23:59 23:59 Intake Total 120 / 120 130 / 130 Output Total 0 / 0 0 / 0 Balance 120 / 120 130 / 130 Weight 76.43 kg 77.678 kg Narrative: Patient is alert. Pleasant. Oriented x3. Elderly, sitting upright in bed this morning ENT exam clear, nasal cannula in place. No swelling of tongue or lips Heart rate regular. Lungs clear in the anterior peoples, no wheeze Abdomen is soft, only minimally tender around the drain site Extremities without clubbing, no cyanosis. Neurologic exam grossly intact No acute rash or hives on skin, warm and dry Assessment and Plan (1) Abdominal abscess Current visit: No Status: Acute Category: Medical (2) Diverticulitis of large intestine with abscess Current visit: No Status: Acute Qualifiers: Diverticulitis bleeding: without bleeding Qualified Code(s): K57.20 - Diverticulitis of large intestine with perforation and abscess without bleeding Category: Medical Code(s): K57.20 - Diverticulitis of large intestine with perforation and abscess without bleeding (3) Fever Current visit: Yes Status: Resolved Category: Medical Code(s): R50.9 - Fever, unspecified (4) Tachycardia Current visit: Yes Status: Resolved Category: Medical Code(s): R00.0 - Tachycardia, unspecified (5) Tachypnea Current visit: Yes Status: Resolved Category: Medical Code(s): R06.82 - Tachypnea, not elsewhere classified - Assessment and plan all Dx Assessment and Plan for all problems:: Feel patient symptoms have resolved. She is otherwise stable this morning. Given the increase in her white count and the onset of Reiger's, fever, tachycardia during administration of antibiotics yesterday, suspect she had cytokine release from treatment of infection by antibiotics as opposed to an allergic reaction. Seems to be tolerating ceftriaxone quite well. Based on sensitivities, identified pathogen is sensitive to ceftriaxone. Recommend completing IV antibiotic course with ceftriaxone to avoid any potential allergy as well as to de-escalate antibiotics for improved stewardship. Patient will require 2 more days to complete her initial 14-day course. Orders have been given to case management, they are working on setting up antibiotics with infusion partners. Further management of abscess and diverticulitis per surgery. Resume home medications for chronic conditions. Thank you for the opportunity to assist with the care of this patient.
[2019-03-31 12:04] LABS: Basophils % 0.1 % (0.1-2.0); Eosinophils % 4.3 % (0.1-12.0); Hematocrit 31.3 % (37.0-47.0); Hemoglobin 10.3 g/dL (12.2-16.2); Lymphocytes # 0.9 K/mm3 (0.7-4.5); Lymphocytes % 3.8 % (10-50); Mean Corpuscular HGB Conc 32.7 g/dL (31.8-35.4); Mean Corpuscular Volume 90.6 fl (81-99); Mean Platelet Volume 8.4 fl (7.4-10.4); Monocytes # 0.4 K/mm3 (0.1-1.0); Monocytes % 1.8 % (1.7-9.3); Neutrophils # 20.9 K/mm3 (1.8-7.8); Platelet Count 328 K/mm3 (142-424); Red Blood Count 3.46 M/mm3 (4.20-5.40); Red Cell Distribution Width 13.9 % (11.5-17.5)
[2019-03-31 12:12] LABS: White Blood Count 22.8 K/mm3 (4.8-10.8)
--- NOTE | 2019-03-31 14:06 | Discharge Summary ---
General - General Admission date:: 03/30/19 Discharge date: 03/31/19 HPI HPI: This is a 78-year-old female with a recent diagnosis of diverticulitis with associated complex abscess that was aspirated during a recent hospitalization. She was seen in follow-up yesterday and an enlarging palpable component was appreciable. She was scheduled for repeat CT scan with likely drainage. This procedure was performed earlier today and the drainage catheter was secured in position. She is being admitted for observation/drain care teaching/initial drain management. Hospital Course Hospital Course: The patient initially convalesced well status post percutaneous drain placement. She had her scheduled dose of Invanz on the afternoon of the procedure and quickly developed "shaking and flushing". She also had fairly significant tachypnea and tachycardia. Per nursing, a rash on her back was also appreciable. In addition, she was temporarily febrile. She was treated for possible adverse reaction to her Invanz dosing. Of note...she had received over 1 week of Invanz at home without any complicating issues. Her primary service was consulted for further evaluation and management. They felt that her sam ction could have been secondary to an adverse reaction to medication however, cytokine release secondary to her procedure was also deemed a strong possibility. Recommendations for discontinuation of Invanz and utilizing Rocephin for further antibiotic coverage were made. Rocephin was deemed the most appropriate choice based upon prior culture/sensitivity. She did meet criteria for further "sepsis evaluation". Her lactate was normal. Blood cultures were drawn and final results are pending. She quickly recovered with regard to symptomatology and remained afebrile with stable vital signs throughout the remainder of her stay. She did develop a significant leukocytosis that was somewhat improving at the time of discharge. Objective Vital signs: Temp Pulse Resp BP Pulse Ox 97.9 F 78 23 125/56 L 98 03/31/19 12:00 03/31/19 12:00 03/31/19 12:00 03/31/19 12:00 03/31/19 12:00 no acute distress - *Routine HEENT Exam Head: Present: normocephalic - *Routine Neck Exam Present: full ROM - Routine Chest/Breast/Axilla Exam Chest wall: Absent: tenderness - *Routine Respiratory Exam Absent: respiratory distress - *Routine Cardiovascular Exam Present: RRR - *Routine Abdominal Exam Present: soft Comments: Focal tenderness at drain site - *Routine Extremities Exam Absent: cyanosis, clubbing - Routine Back/Spine/Pelvis Exam Back/Spine: Absent: muscle spasm - *Routine Skin Exam Present: intact Comments: No appreciable rash at time of admission or at time of discharge. The rash upon the patient's back noted by nursing quickly resolved. - *Routine Neurological Exam Present: alert, oriented X3 - Routine Psychiatric Exam Present: normal affect Results Labs on day of discharge: Labs from last 24 hours 03/31/19 03/31/19 03/31/19 11:45 05:47 05:47 WBC 22.8 H* 24.3 H* D RBC 3.46 L 3.59 L Hgb 10.3 L 10.2 L D Hct 31.3 L 32.4 L MCV 90.6 90.3 MCH 29.6 28.5 MCHC 32.7 31.5 L RDW 13.9 13.6 Plt Count 328 324 MPV 8.4 8.4 Neut % (Auto) 90.0 H 96.5 H Lymph % (Auto) 3.8 L 2.0 L [place] % (Auto) 1.8 1.0 L Eos % (Auto) 4.3 0.5 Baso % (Auto) 0.1 0.1 Neut # (Auto) 20.9 H 23.4 H Lymph # (Auto) 0.9 0.5 L [place] # (Auto) 0.4 0.2 Eos # (Auto) 1.0 H 0.1 Baso # (Auto) 0.0 0.0 Total Counted 100 Neutrophils % (Manual) 98 H Lymphocytes % (Manual) 1 L Monocytes % (Manual) 1 L Eosinophils % (Manual) Platelet Estimate Normal RBC Morphology Stomatocytes 2+ Sodium 141 Potassium 4.0 Chloride 104 Carbon Dioxide 29 Anion Gap 12.0 BUN 12 Creatinine 0.69 Estimated Creat Clear 56 Estimated GFR 82 Est GFR ( Amer) 99 Glucose 119 H Lactate Calcium 8.0 L Magnesium 1.4 Total Bilirubin 0.5 AST 10 L ALT 9 L Alkaline Phosphatase 81 Total Protein 5.3 L D Albumin 1.8 L Globulin 3.5 H Albumin/Globulin Ratio 0.5 L 03/30/19 03/30/19 03/30/19 17:55 17:05 17:05 WBC 12.5 H RBC 4.02 L Hgb 11.6 L D Hct 37.4 MCV 93.0 MCH 28.8 MCHC 30.9 L RDW 13.6 Plt Count 371 MPV 7.9 Neut % (Auto) 90.0 H Lymph % (Auto) 5.4 L [place] % (Auto) 1.3 L Eos % (Auto) 3.2 Baso % (Auto) 0.1 Neut # (Auto) 11.3 H Lymph # (Auto) 0.7 [place] # (Auto) 0.2 Eos # (Auto) 0.4 Baso # (Auto) 0.0 Total Counted 100 Neutrophils % (Manual) 90 H Lymphocytes % (Manual) 7 L Monocytes % (Manual) 2 Eosinophils % (Manual) 1 Platelet Estimate Normal RBC Morphology Normal Stomatocytes Sodium 142 Potassium 4.0 Chloride 104 Carbon Dioxide 27 Anion Gap 15.0 BUN 11 Creatinine 0.78 D Estimated Creat Clear 55 Estimated GFR 71 Est GFR ( Amer) 86 D Glucose 137 H D Lactate 1.7 Calcium 8.7 Magnesium Total Bilirubin AST ALT Alkaline Phosphatase Total Protein Albumin Globulin Albumin/Globulin Ratio - Imaging and Cardiology CT scan - abdomen Status: final report DS: Diagnosis - Discharge Diagnosis (1) Abdominal abscess Status: Acute (2) Diverticulitis of large intestine with abscess Status: Acute Problem details: Rocephin 1 g/day for 10 more days. Short-term repeat CT scan. (3) Fever Status: Resolved (4) Tachycardia Status: Resolved (5) Tachypnea Status: Resolved (6) Abnormal CT scan, bladder Status: Acute Problem details: The patient is willing to see urology "once the diverticulitis is taken care of". (7) Leukocytosis Status: Acute Problem details: Acute change likely secondary to either reaction to medication or cytokine release status post procedure. Somewhat improved at time of discharge. Ongoing reevaluation scheduled. Discharge Plan - Patient Discharge Instructions ACTIVITY: Ambulate as tolerated DIET: advance to your usual diet, other (Soft diet) Additional Instructions: Rocephin 1 g IV daily x10 more days Flush drain 3 times per day with 3 to 5 mL of normal saline Repeat CBC on April 03 Follow-up in outpatient clinic on April 05 - Follow up Plan Follow up with: Benji Floers MD [Staff Physician] - 04/05/19 (She should have a F/U appt. already scheduled (please confirm).) Disposition: Home, Self-Jail Medications: Home Medications Medication Instructions Recorded Confirmed Type Aspirin 81 mg PO DAILY 03/23/18 03/30/19 History Famotidine [Acid Controller] 20 mg PO BID 03/23/18 03/30/19 History Fluticasone/Vilanterol [Breo 1 puff INHALATION DAILY 03/23/18 03/30/19 History Ellipta 200-25 Mcg INH] Levothyroxine Sodium 75 mcg PO DAILY 03/23/18 03/30/19 History [Levothyroxine 75mcg (0.075mg) Tab] Alendronate Sodium 35 mg PO WEEKLY 03/19/19 03/30/19 History Losartan Potassium [Cozaar 50mg 50 mg PO DAILY 03/19/19 03/30/19 History Tablets] Rosuvastatin Calcium [Crestor 10mg 10 mg PO HS 03/19/19 03/30/19 History Tablets] Albuterol Sulfate [Albuterol HFA 1 puff IH Q4HP PRN 03/20/19 03/30/19 History Inhaler] Ertapenem Sodium [Invanz 1gm Vial] 1 gm IV DAILY 03/30/19 03/30/19 History Prescriptions/Medication Reconciliation: New Ceftriaxone Sodium [Rocephin 1gm vial] 1 gm IV Q24H vial Continued Fluticasone/Vilanterol [Breo Ellipta 200-25 Mcg INH] 1 puff INHALATION DAILY Famotidine [Acid Controller] 20 mg PO BID Aspirin 81 mg PO DAILY Levothyroxine Sodium [Levothyroxine 75mcg (0.075mg) Tab] 75 mcg PO DAILY Losartan Potassium [Cozaar 50mg Tablets] 50 mg PO DAILY Rosuvastatin Calcium [Crestor 10mg Tablets] 10 mg PO HS Alendronate Sodium 35 mg PO WEEKLY Ertapenem Sodium [Invanz 1gm Vial] 1 gm IV DAILY Albuterol Sulfate [Albuterol HFA Inhaler] 1 puff IH Q4HP PRN PRN Reason: Wheezing - Problem Reconciliation Problems Reviewed?: Yes
== END 2019-03-31 16:10 | disposition home or self-care (01) ==
LOC: 2ND 08:14 → RAD 08:14
PROVIDERS: ADMIT Surgery; ATTEND Surgery
CPT/HCPCS: 36415; 74177; 75989; 80048; 80053; 83605; 83735; 85007; 85025; 85610; 85730; 87040; G0378; J1335; Q9967

== ENCOUNTER → 2019-04-03 15:48 | Outpatient (CLI) | payer MEDICARE, SELFPAY ==
[2019-04-03 16:21] LABS: Basophils # 0.1 K/mm3 (0-0.2); Basophils % 0.7 % (0.1-2.0); Eosinophils # 1.7 K/mm3 (0.0-0.4); Eosinophils % 20.2 % (0.1-12.0); Hemoglobin 10.5 g/dL (12.2-16.2); Lymphocytes # 1.7 K/mm3 (0.7-4.5); Lymphocytes % 20.5 % (10-50); Mean Corpuscular HGB Conc 30.9 g/dL (31.8-35.4); Mean Corpuscular Hemoglobin 29.6 pg (27.0-31.2); Mean Corpuscular Volume 95.5 fl (81-99); Mean Platelet Volume 8.2 fl (7.4-10.4); Monocytes # 0.5 K/mm3 (0.1-1.0); Monocytes % 6.1 % (1.7-9.3); Neutrophils # 4.4 K/mm3 (1.8-7.8); Neutrophils % 52.6 % (37.0-80.0); Platelet Count 335 K/mm3 (142-424); Red Blood Count 3.56 M/mm3 (4.20-5.40); Red Cell Distribution Width 13.8 % (11.5-17.5); White Blood Count 8.4 K/mm3 (4.8-10.8)
== END ==
PROVIDERS: Visit Provider Internal Medicine Adolescent Medicine
DX: K57.20 Diverticulitis of large intestine with perforation and abscess without bleeding (principal)
CPT/HCPCS: 85025

== ENCOUNTER 2019-04-05 14:03 | Outpatient (CLI) | payer MEDICARE, SELFPAY ==
[2019-04-05 14:35] VITALS: BP 152/91; PULSE 81; RESP 22; O2SAT 93
[2019-04-05 15:05] VITALS: BP 160/67; PULSE 74; RESP 20
== END 2019-04-05 15:30 | disposition home or self-care (01) ==
LOC: INF 14:05
PROVIDERS: PCP Internal Medicine Adolescent Medicine; Visit Provider Surgery
DX: K57.20 Diverticulitis of large intestine with perforation and abscess without bleeding (principal)
CPT/HCPCS: 96365

== ENCOUNTER → 2019-12-29 16:16 | Outpatient (CLI) | payer OTHER, SELFPAY | PROVIDERS: Visit Provider Internal Medicine | DX: K65.1 Peritoneal abscess (principal) | CPT/HCPCS: 87070; 87077; 87186; 87205 ==

== ENCOUNTER → 2020-10-26 12:05 | Outpatient (CLI) | payer MEDICARE, SELFPAY | PROVIDERS: PCP Internal Medicine Adolescent Medicine; Visit Provider Ophthalmology | DX: Z20.822 Contact with and (suspected) exposure to COVID-19 (principal) ==

== ENCOUNTER → 2020-10-26 12:57 | Outpatient (CLI) | payer MEDICARE, SELFPAY | PROVIDERS: Visit Provider Ophthalmology | DX: Z01.812 Encounter for preprocedural laboratory examination (principal); Z20.822 Contact with and (suspected) exposure to COVID-19 | CPT/HCPCS: U0003 ==

== ENCOUNTER 2020-10-29 09:20 | Day surgery (SDC) | payer MEDICARE, SELFPAY ==
[2020-10-22 16:55] VITALS: BMI 32.9
[2020-10-29] VITALS (7 sets, daily range): BP systolic 108–143; BP diastolic 53–69; PULSE 57–67; RESP 16–24; TEMP 36.4; O2SAT 95–100
== END 2020-10-29 11:36 | disposition home or self-care (01) ==
LOC: OR 09:22
PROVIDERS: PCP Internal Medicine Adolescent Medicine; Visit Provider Ophthalmology
DX: H25.812 Combined forms of age-related cataract, left eye (principal); Z79.899 Other long term (current) drug therapy
CPT/HCPCS: 66984; V2632

== ENCOUNTER → 2020-11-09 11:53 | Outpatient (CLI) | payer MEDICARE, SELFPAY | PROVIDERS: Visit Provider Ophthalmology | DX: Z01.812 Encounter for preprocedural laboratory examination (principal); Z20.822 Contact with and (suspected) exposure to COVID-19 | CPT/HCPCS: U0003 ==

== ENCOUNTER 2020-11-12 09:24 | Day surgery (SDC) | payer MEDICARE, SELFPAY ==
[2020-11-05 13:34] VITALS: BMI 32.9
[2020-11-12 09:53] VITALS: BP 136/40; PULSE 70; RESP 18; TEMP 36.3; O2SAT 93
[2020-11-12 12:16] VITALS: BP 150/70; PULSE 68; RESP 16; O2SAT 94
[2020-11-12 12:21] VITALS: BP 159/66; PULSE 61; RESP 16; O2SAT 100
[2020-11-12 12:26] VITALS: BP 121/61; PULSE 60; RESP 16; O2SAT 99
[2020-11-12 12:31] VITALS: BP 136/65; PULSE 59; RESP 16; O2SAT 100
[2020-11-12 12:35] VITALS: BP 133/75; PULSE 68; RESP 20; TEMP 36.1; O2SAT 94
== END 2020-11-12 12:44 | disposition home or self-care (01) ==
LOC: OR 09:26
PROVIDERS: PCP Internal Medicine Adolescent Medicine; Visit Provider Ophthalmology
DX: H25.813 Combined forms of age-related cataract, bilateral (principal); H02.831 Dermatochalasis of right upper eyelid; H02.834 Dermatochalasis of left upper eyelid; J44.9 Chronic obstructive pulmonary disease, unspecified; I10 Essential (primary) hypertension; E03.9 Hypothyroidism, unspecified; M19.90 Unspecified osteoarthritis, unspecified site; Z87.891 Personal history of nicotine dependence; Z90.49 Acquired absence of other specified parts of digestive tract; Z88.1 Allergy status to other antibiotic agents; Z79.82 Long term (current) use of aspirin; Z79.899 Other long term (current) drug therapy
CPT/HCPCS: 66984; V2632

== ENCOUNTER 2021-06-23 13:25 | Emergency (ER) | payer OTHER, MEDICARE, SELFPAY ==
[2021-06-23 13:25] VITALS: BP 114/74; PULSE 69; RESP 18; TEMP 36.4; O2SAT 95; BMI 32.9
[2021-06-23 13:30] VITALS: BP 125/65; PULSE 69; O2SAT 96
[2021-06-23 14:00] VITALS: BP 107/57; PULSE 68; RESP 18; O2SAT 97
--- NOTE | 2021-06-23 14:21 | XR_ITS ---
FINAL REPORT TECHNIQUE: Single view chest CLINICAL HISTORY: SOA, COUGH, CONFUSIONS COMPARISON: 03/21/2019 FINDINGS: A single view of the chest was obtained. The heart and mediastinum are within normal limits. There is moderate scarring/fibrosis, worse from prior exam. Lungs are otherwise clear. There is no pneumothorax. Osseous structures are unremarkable. IMPRESSION: Moderate scarring/fibrosis, worse from prior exam. Reviewed, Interpreted and Dictated by Blane Lee III, MD Transcribed by Any Burr Authenticated by Blane Lee III, MD on 06/23/2021 03:03:[address] [facility]
[2021-06-23 14:35] LABS: Microscopic, Urine URINE MICROSCOPIC (MICROSCOPIC)
[2021-06-23 14:37] LABS: Coronavirus 19, PCR Not Detected (NotDetected); Influenza A, PCR Not Detected (NotDetected); Influenza B, PCR Not Detected (NotDetected)
[2021-06-23 14:37] LABS: Appearance,Urine CLEAR (Clear); Bilirubin,Urine Negative (Negative); Blood, Urine Negative (Negative); Color,Urine YELLOW (Yellow); Glucose,Urine (UA) Negative (Negative); Ketones,Urine Negative (Negative); Leukocyte Esterase,Urine TRACE (Negative); Nitrate,Urine POSITIVE (Negative); Protein,Urine Negative (Negative); Specific Gravity, Urine 1.025 (1.005-1.030); Urobilinogen,Urine 0.2 EU/dl (0.2)
[2021-06-23 14:38] LABS: Basophils # 0.1 K/mm3 (0-0.2); Basophils % 0.7 % (0.1-2.0); Eosinophils # 0.4 K/mm3 (0.0-0.4); Eosinophils % 3.3 % (0.1-12.0); Hematocrit 46.2 % (37.0-47.0); Hemoglobin 13.4 g/dL (12.2-16.2); Lymphocytes # 1.3 K/mm3 (0.7-4.5); Lymphocytes % 11.7 % (10-50); Mean Corpuscular HGB Conc 28.9 g/dL (31.8-35.4); Mean Corpuscular Hemoglobin 29.1 pg (27.0-31.2); Mean Corpuscular Volume 100.7 fl (81-99); Mean Platelet Volume 10.2 fl (7.4-10.4); Monocytes # 0.9 K/mm3 (0.1-1.0); Monocytes % 7.6 % (1.7-9.3); Neutrophils # 8.6 K/mm3 (1.8-7.8); Neutrophils % 76.7 % (37.0-80.0); Platelet Count 221 K/mm3 (142-424); Red Blood Count 4.59 M/mm3 (4.20-5.40); Red Cell Distribution Width 14.6 % (11.5-17.5); White Blood Count 11.2 K/mm3 (4.8-10.8)
[2021-06-23 14:39] LABS: Chloride 101 mmol/L (98-107); Potassium 3.9 mmoL/L (3.5-5.1); Sodium 140 mmol/L (136-145)
[2021-06-23 14:42] LABS: Anion Gap 5.9 mEq/L (5-15); Blood Urea Nitrogen 17 mg/dl (7-17); Carbon Dioxide 37 mmol/L (22.0-30.0); Creatinine Clearance Estimated 57 mL/min (50-200); Estimated Glomerular Filt Rate 69 ml/min (>60); GFR (African American) 83 ML/MIN (>60)
[2021-06-23 14:43] LABS: Calcium 8.3 mg/dl (8.4-10.2); Glucose 87 mg/dl (74-100); Lactic Acid 1.5 mmol/L (0.7-2.1)
[2021-06-23 15:05] LABS: Troponin I < 0.01 ng/ml (0.00-0.034)
--- NOTE | 2021-06-23 15:32 | HMH.EDAMS ---
ED Disposition Clinical Impression: Altered mental status, UTI (urinary tract infection), Pulmonary fibrosis Disposition: Home, Self-Care Condition on Discharge: Good Instructions: Urinary Tract Infection Additional Instructions: Please follow up with your primary care physician in 2-3 days for further management. Please take the antibiotic as prescribed. Please return if symptoms progress or do not improve. Prescriptions: Cefdinir [Omnicef 300mg Capsule] 300 mg PO BID #20 cap Transmission Status: Received by [facility] Referrals: Rick Beltrán MD [Primary Care Provider] - - Critical Care Critical Care Time: No Attestation: On 06/23/21, the high probability of a clinically significant, sudden or life threatening deterioration of the following system(s) required my full and direct attention, intervention and personal management. The time I documented below is in addition to time spent performing reported procedures but includes the following listed in this critical care notation. Medical Decision Making - Medical Records Medical records reviewed: Yes: I reviewed the patient's medical records. - [place] Inquiry Pt receiving controlled substance: No Vital Signs: 06/23/21 13:25 06/23/21 13:30 06/23/21 14:00 Temperature 97.5 F L Temperature Source Oral Pulse Rate 69 68 Pulse Rate [Left Radial] 69 Respiratory Rate 18 18 Blood Pressure 125/65 107/57 L Blood Pressure [Right Arm] 114/74 Blood Pressure Mean 82 80 Blood Pressure Mean [Right Arm] 87 Blood Pressure Source [Right Arm] Automatic Cuff Blood Pressure Position [Right Arm] Sitting 02 Sat by Pulse Oximetry 95 96 97 Oxygen Delivery Method Room Air 06/23/21 16:04 Temperature 98.0 F Temperature Source Pulse Rate 68 Pulse Rate [Left Radial] Respiratory Rate 20 Blood Pressure 117/71 Blood Pressure [Right Arm] Blood Pressure Mean Blood Pressure Mean [Right Arm] Blood Pressure Source [Right Arm] Blood Pressure Position [Right Arm] 02 Sat by Pulse Oximetry Oxygen Delivery Method - Lab Data Lab results reviewed: Yes: I reviewed the patient's lab results. Lab Results 06/23/21 13:30: WBC 11.2 H, RBC 4.59, Hgb 13.4, Hct 46.2, MCV 100.7 H, MCH 29.1, MCHC 28.9 L, RDW 14.6, Plt Count 221, MPV 10.2, Neut % (Auto) 76.7, Lymph % (Auto) 11.7, [place] % (Auto) 7.6, Eos % (Auto) 3.3, Baso % (Auto) 0.7, Neut # (Auto) 8.6 H, Lymph # (Auto) 1.3, [place] # (Auto) 0.9, Eos # (Auto) 0.4, Baso # (Auto) 0.1 06/23/21 13:30: Sodium 140, Potassium 3.9, Chloride 101, Carbon Dioxide 37 H, Anion Gap 5.9, BUN 17, Creatinine 0.80, Estimated Creat Clear 57, Estimated GFR 69, Est GFR ( Amer) 83, Glucose 87, Calcium 8.3 L, Troponin I < 0.01 06/23/21 13:30: Lactate 1.5 06/23/21 13:30: SARS-CoV-2 (PCR) Not detected, Influenza A Untype (PCR) Not detected, Influenza Type B (PCR) Not detected 06/23/21 13:55: Urine Color Yellow, Urine Appearance Clear, Urine pH 6.0, Ur Specific [place] 1.025, Urine Protein Negative, Urine Glucose (UA) Negative, Urine Ketones Negative, Urine Blood Negative, Urine Nitrate Positive, Urine Bilirubin Negative, Urine Urobilinogen 0.2, Ur Leukocyte Esterase Trace, Urine RBC None, Urine WBC 3-5, Ur Squamous Epith Cells 3-5, Urine Bacteria None Result diagrams: 06/23/21 13:30 06/23/21 13:30 Orders (Tests/Meds): ED MEDICATIONS Discontinued Medications Generic Name Dose Route Start Last Admin Trade Name Prosperq PRN Reason Stop Dose Admin Ceftriaxone Sodium 1 gm/ 50 mls @ 100 mls/hr 06/23/21 15:45 06/23/21 15:55 Sodium Chloride IV 07/07/21 15:44 100 mls/hr Q24H DANIEL Administration Sodium Chloride 10 ml 06/23/21 14:21 Sodium Chloride 0.9% 10ml Flush Syringe IV 07/23/21 14:20 NEEDED PRN Maintain IV Site ORDERS Category Date Time Status Blood Culture Stat Micro 06/23/21 13:30 Received Medical Decision Narrative: Miss Machado is a 80 yo female on Hospice with PMH for pulmonary
[2021-06-23 16:04] VITALS: BP 117/71; PULSE 68; RESP 20; TEMP 36.7; O2SAT 97
--- NOTE | 2021-06-23 16:30 | PC.NURSE ---
[facility] CALLED , IV DC'D AND NOVAK REMOVED
== END 2021-06-23 16:05 | disposition home or self-care (01) ==
PROVIDERS: Emergency Provider Student in an Organized Health Care Education/Training Program; PCP Internal Medicine Adolescent Medicine
DX: N39.0 Urinary tract infection, site not specified (principal); R41.82 Altered mental status, unspecified; M19.90 Unspecified osteoarthritis, unspecified site; J44.9 Chronic obstructive pulmonary disease, unspecified; E78.5 Hyperlipidemia, unspecified; E03.9 Hypothyroidism, unspecified; F17.210 Nicotine dependence, cigarettes, uncomplicated; Z20.822 Contact with and (suspected) exposure to COVID-19; Z79.51 Long term (current) use of inhaled steroids; Z79.52 Long term (current) use of systemic steroids; Z79.82 Long term (current) use of aspirin; Z79.899 Other long term (current) drug therapy; Z88.0 Allergy status to penicillin; Z88.1 Allergy status to other antibiotic agents; Z88.3 Allergy status to other anti-infective agents
CPT/HCPCS: 71045; 80048; 81001; 83605; 84484; 85025; 87040; 96374; 99284; C9803; J0696; U0003; U0005